=== PATIENT | female | born 1950 | race American Indian/Alaskan Native ===

== ENCOUNTER 2019-06-04 01:45 | Inpatient (IN) | payer MEDICARE, OTHER ==
[2019-06-04] VITALS (19 sets, daily range): BP systolic 114–228; BP diastolic 52–141
[~2019-06-04] VITALS: Ht 157.5 cm; Wt 97.9 kg
[2019-06-04] MEDS ORDERED: nitroGLYCERIN 1gm ointment UD TP ONE (02:00)
--- NOTE | 2019-06-04 02:14 | NUR ---
Patient resting comfortably and denies CP at this time. She is updated on POC.
[2019-06-04 02:15] LABS: BASOPHILS # (AUTO) 0.1 X10'3 (0-0.2); BASOPHILS % (AUTO) 1.1 % (0-1); EOSINOPHILS % (AUTO) 0.2 % (0-6); HEMATOCRIT 30.3 % (35.0-45.0); HEMOGLOBIN 10.3 g/dl (12.0-16.0); LYMPHOCYTES # (AUTO) 0.6 X10'3 (1.1-4.8); LYMPHOCYTES % (AUTO) 7.7 % (21-51); MEAN CORPUSCULAR HEMOGLOBIN 31.2 PG (27.0-31.0); MEAN CORPUSCULAR HGB CONC 34.1 g/dL (33.0-36.5); MEAN CORPUSCULAR VOLUME 91.4 FL (78-98); MEAN PLATELET VOLUME 8.2 FL (7.4-10.4); MONOCYTES # (AUTO) 0.1 X10'3 (0-0.9); MONOCYTES % (AUTO) 1.5 % (2-12); NEUTROPHILS # (AUTO) 6.4 X10'3 (1.8-7.7); NEUTROPHILS % (AUTO) 89.5 % (42-75); PLATELET COUNT 236 X10'3 (140-440); RED BLOOD COUNT 3.32 X10'6 (4.20-5.60); RED CELL DISTRIBUTION WIDTH 14.3 % (11.5-14.5); WHITE BLOOD COUNT 7.1 X10'3 (4.5-11.0)
[2019-06-04 02:16] LABS: PARTIAL THROMBOPLASTIN TIME 31 SECONDS (22-32)
[2019-06-04 02:18] LABS: ALANINE AMINOTRANSFERASE 19 U/L (12-78); ALBUMIN 3.3 G/DL (3.4-5.0); ALBUMIN/GLOBULIN RATIO 0.9 (1.1-1.5); ALKALINE PHOSPHATASE 90 IU/L (46-116); ANION GAP 7 (8-16); ASPARTATE AMINO TRANSFERASE 33 U/L (10-37); BILIRUBIN,TOTAL 0.2 MG/DL (0.1-1.0); BLOOD UREA NITROGEN 45 MG/DL (7-18); BUN/CREATININE RATIO 22.1 (6.6-38.0); CALCIUM 9.1 MG/DL (8.5-10.1); CHLORIDE 106 MMOL/L (99-107); CREATININE 2.04 MG/DL (0.40-0.90); GLUCOSE 314 MG/DL (70-104); POTASSIUM 4.9 MMOL/L (3.5-5.1); SODIUM 138 MMOL/L (135-145); TOTAL CARBON DIOXIDE 25.5 MMOL/L (24-32); TOTAL PROTEIN 6.9 G/DL (6.4-8.2); eGFR 24 ML/MIN
[2019-06-04] MEDS ORDERED: heparin 25,000 UNIT/250ml bag 250 ML IV SCH (02:24)
[2019-06-04] MEDS ORDERED: heparin 10,000 units/1 ML INJ IV PRN ×2 (02:25→03:45)
[2019-06-04] MEDS ORDERED: normal saline 1000ml 1,000 ML IV ONE (02:25)
[2019-06-04] MEDS ORDERED: heparin 10,000 units/1 ML INJ IV ONE ×2 (02:25→03:45)
[2019-06-04] MEDS ORDERED: aspirin 81mg tab.chew PO ONE (03:15)
[2019-06-04] MEDS ORDERED: magnesium Cl slow-release 64mg tablet PO PRN (03:15)
[2019-06-04] MEDS ORDERED: potassium Cl 20 mEq SR tablet PO PRN ×2 (03:15)
[2019-06-04] MEDS ORDERED: magnesium 2GM in 50ml NS 50 ML IV PRN (03:15)
[2019-06-04] MEDS ORDERED: HYDROcodone/acetaminophen 5mg/325mg tablet PO PRN (03:15)
[2019-06-04] MEDS ORDERED: ondansetron/PF 4mg/2ml inj IV PRN (03:15)
[2019-06-04] MEDS ORDERED: nitroGLYCERIN 0.4mg SUBLingual tab SL PRN (03:15)
[2019-06-04] MEDS ORDERED: mag hydrox/Alum hydrox/simeth 30ml oral suspension PO PRN (03:15)
[2019-06-04] MEDS ORDERED: magnesium hydroxide 30ml (MOM) UD suspension PO PRN ×2 (03:15→20:15)
[2019-06-04] MEDS ORDERED: magnesium 4gm in 100ml NS 100 ML IV PRN (03:15)
[2019-06-04] MEDS ORDERED: potassium CL 10mEq/100ml bag 100 ML IV PRN ×2 (03:15)
[2019-06-04] MEDS ORDERED: metoprolol tartrate 1mg/ml inj IV PRN (03:25)
[2019-06-04] MEDS ORDERED: glucagon, human recombinant 1mg kit SUBCUT PRN (03:45)
[2019-06-04] MEDS ORDERED: MESSAGE TO PHARMACY PO ONE (03:45)
[2019-06-04] MEDS ORDERED: dextrose 50%-water 50ml dispensing syringe IV PRN ×2 (03:45)
[2019-06-04] MEDS ORDERED: dextrose ORAL solution 15 GM/59 ML bottle PO PRN ×2 (03:45)
--- NOTE | 2019-06-04 03:45 | NUR ---
I have received report from HERNAN Lorenzo and had the opportunity to ask questions and assume patient care.
--- NOTE | 2019-06-04 03:50 | NUR ---
patient arrived [facility], [facility] via slide board. arrivedd with all known belongings
[2019-06-04 04:05] LABS: HEMOGLOBIN A1C 7.5 % (4.5-6.2)
--- NOTE | 2019-06-04 04:47 | NUR ---
PAGER ID: [phone] MESSAGE: [phone] Ирина Diamond. Please clarify Heparin drip orders. thank you. HERNAN Longoria ext [phone]
[2019-06-04] MEDS: heparin 25,000 UNIT/250ml bag 250 ML IV SCH (05:11)
--- NOTE | 2019-06-04 06:00 | NUR ---
Patient in room MED 307. I have received report from HERNAN Longoria and had the opportunity to ask questions and assume patient care.
--- NOTE | 2019-06-04 06:41 | NUR ---
PAGER ID: [phone] MESSAGE: [phone] Ирина Diamond. critical trop. 5.23 from 06.16. michelle garsia ext [phone]
--- NOTE | 2019-06-04 06:45 | NUR ---
Problems reprioritized. Patient report given, questions answered & plan of care reviewed with HERNAN Biswas.
[2019-06-04] MEDS ORDERED: enoxaparin 30mg/0.3ml syringe SQ SCH (08:00)
[2019-06-04] MEDS: K and/or MAG REPLACEMENT MC SCH ×2 (08:00→20:00)
[2019-06-04] MEDS ORDERED: metoprolol tartrate 12.5mg (1/2 tablet) PO SCH ×2 (08:00→20:00)
--- NOTE | 2019-06-04 08:28 | NUR ---
PAGED DR. BANEGAS CRITICAL TROPONIN: "PAGER ID: [phone] MESSAGE: RM [phone] PAM SHEETS. CRITICAL 6HR TROP 7.23, UP FROM 3HR 5.23. MICHEAL ACCE [phone]"
[2019-06-04] MEDS: aspirin 81mg tab.chew PO SCH (09:03)
--- NOTE | 2019-06-04 10:00 | NUR ---
SPOKE WITH DR. COLLINS ABOUT CRITICAL TROPONIN TROPONIN 7.23, ORDER FOR NS@100, AGGRASTAT DRIP, CONTINUE HEP GTT, NPO AFTER LUNCH DR. COLLINS SAYS HE WILL DO CATH AROUND 1900 TODAY BUT NEEDS TO TALK TO THE PATIENT FIRST HERNAN BURTON NOTIFIED WELL DR. BANEGAS DURING ROUNDS
[2019-06-04] MEDS ORDERED: hydrALAZINE 20mg/ml inj. IV PRN (10:25)
[2019-06-04] MEDS: insulin Lispro (HumaLOG) vial - multi-dose SQ SCH ×3 (10:28→17:18)
[2019-06-04] MEDS: normal saline 1000ml 1,000 ML IV SCH ×2 (10:42→20:47)
[2019-06-04] MEDS: acetaminophen 325mg tablet PO PRN (10:45)
[2019-06-04] MEDS: tirofiban 5mg in NS 100mL 100 ML IV SCH ×3 (10:45→22:23)
[2019-06-04] MEDS ORDERED: metoprolol tartrate 1mg/ml inj IV ONE ×2 (13:10→19:19)
[2019-06-04] MEDS ORDERED: CHLO25TA10 PO (13:21)
[2019-06-04] MEDS ORDERED: LEVO175T7 PO (13:21)
[2019-06-04] MEDS ORDERED: TIZA2TAB5 PO (13:21)
[2019-06-04] MEDS ORDERED: PIOG45TA65 PO (13:21)
[2019-06-04] MEDS ORDERED: CLOP75TA35 PO (13:21)
[2019-06-04] MEDS ORDERED: CARV3.122 PO (13:21)
[2019-06-04] MEDS ORDERED: ATOR40TA72 PO (13:21)
[2019-06-04] MEDS ORDERED: ACYC-202 PO (13:21)
[2019-06-04] MEDS ORDERED: NORT50CA PO (13:21)
[2019-06-04] MEDS ORDERED: TRAM50TA2 PO (13:21)
[2019-06-04] MEDS ORDERED: PRED20TA PO (13:21)
[2019-06-04] MEDS ORDERED: GABA800T11 PO (13:21)
[2019-06-04] MEDS ORDERED: GABA600T13 PO (13:21)
[2019-06-04] MEDS ORDERED: GABA-532 PO (13:21)
--- NOTE | 2019-06-04 15:25 | NUR ---
DM consult, A1c is 7.5, patient and family met at bedside and given written DM education handout with verbal review and referral to outpatient DM education class on saturday. Addendum: 06/04/19 at [address] Amended: Links added.
--- NOTE | 2019-06-04 17:00 | NUR ---
Student documentation: I have reviewed and agree with all interventions, med pass, and assessments performed and documented by SN Maxx.
--- NOTE | 2019-06-04 18:00 | NUR ---
Problems reprioritized. Patient report given, questions answered & plan of care reviewed with HERNAN Sargent.
[2019-06-04] MEDS ORDERED: LIDOcaine 1% (10mg/ml)w/preservative injection 20ml MDV ONE (18:26)
[2019-06-04] MEDS ORDERED: iohexol 350 MG/ML 50ML vial IV ONE ×2 (18:26→19:25)
[2019-06-04] MEDS ORDERED: iohexol 350MG/ML 100ml bottle IV ONE (18:27)
[2019-06-04] MEDS ORDERED: fentaNYL/PF 50MCG/1 ML 2ML syringe ONE (18:27)
[2019-06-04] MEDS ORDERED: midazolam 2 mg/2 ml injection ONE (18:27)
[2019-06-04] MEDS ORDERED: nitroGLYCERIN-Tridil 50MG/D5W 250 ML IV ONE (19:00)
--- NOTE | 2019-06-04 19:41 | NUR ---
Problems reprioritized. Patient report given to Merrick, questions answered & plan of care reviewed with .
--- NOTE | 2019-06-04 19:42 | NUR ---
Patient left to labor relations consultant. Got the message from charge nurse, Romi that the patient is going to ICU room 2039. Gave report to Merrick. Patient was alert, oriented x4 when she left the ACCE unit.
[2019-06-04] MEDS ORDERED: metoprolol succinate 25mg (24-HOUR) SR. Tablet PO SCH (20:07)
[2019-06-04] MEDS ORDERED: OXAZEpam 15mg capsule PO PRN (20:15)
[2019-06-04] MEDS ORDERED: morphine 10mg/ml inj. IV PRN (20:15)
[2019-06-04] MEDS ORDERED: HYDROcodone/acetaminophen 10/325mg tab PO PRN ×2 (20:15)
[2019-06-04] MEDS ORDERED: proCHLORperazine 10 MG/2 ml inj IV PRN (20:15)
[2019-06-04] MEDS ORDERED: acetaminophen 325mg tablet PO PRN (20:15)
[2019-06-04] MEDS ORDERED: cyclobenzaprine 10mg tablet PO PRN (20:15)
[2019-06-04] MEDS: hydrALAZINE 25 MG tablet PO SCH (20:42)
[2019-06-04] MEDS: metoprolol succinate 25mg (24-HOUR) SR. Tablet PO SCH (20:42)
[2019-06-04] MEDS: insulin glargine (Lantus) pen - multi-dose SQ SCH (21:00)
[2019-06-04 22:04] LABS: CLARITY,URINE CLOUDY (Clear); COLOR,URINE STRAW (Yellow); GLUCOSE, URINE NEGATIVE (Neg); KETONES,URINE NEGATIVE (Neg); LEUKOCYTE ESTERASE ,URINE NEGATIVE (Neg); NITRITES, URINE NEGATIVE (Neg); OCCULT BLOOD,URINE LARGE (Neg); PROTEIN,URINE 100 mg/dl (Neg); UROBILINOGEN,URINE 0.2 E.U/dL (0.2-1.0)
[2019-06-04 22:21] LABS: UA COLLECTION TYPE FOLEY CATH
[2019-06-04 22:23] LABS: WBC,URINE 0-4 /HPF (0-4)
[2019-06-04 22:24] LABS: BACTERIA,URINE 3+ /HPF (Neg); RBC,URINE 50-100 /HPF (0-2); SQUAMOUS EPITHELIAL CELL,UR NONE SEEN /LPF (FEW)
[2019-06-04] MEDS: amLODIPine 5mg tablet PO SCH (22:40)
[2019-06-04] MEDS: sodium chloride 0.45% 1,000 ML IV SCH (22:50)
[2019-06-04 23:55] LABS: TOTAL PROTEIN,URINE RANDOM 124.1 MG/DL
[2019-06-05] VITALS (25 sets, daily range): BP systolic 102–171; BP diastolic 34–75
[2019-06-05 00:41] LABS: BASOPHILS % (AUTO) 0.4 % (0-1); EOSINOPHILS % (AUTO) 0.1 % (0-6); HEMATOCRIT 27.3 % (35.0-45.0); HEMOGLOBIN 9.3 g/dl (12.0-16.0); LYMPHOCYTES # (AUTO) 0.8 X10'3 (1.1-4.8); LYMPHOCYTES % (AUTO) 9.4 % (21-51); MEAN CORPUSCULAR HEMOGLOBIN 31.5 PG (27.0-31.0); MEAN CORPUSCULAR HGB CONC 34.3 g/dL (33.0-36.5); MEAN CORPUSCULAR VOLUME 91.7 FL (78-98); MEAN PLATELET VOLUME 8.5 FL (7.4-10.4); MONOCYTES # (AUTO) 0.4 X10'3 (0-0.9); MONOCYTES % (AUTO) 4.7 % (2-12); NEUTROPHILS # (AUTO) 7.5 X10'3 (1.8-7.7); NEUTROPHILS % (AUTO) 85.4 % (42-75); PLATELET COUNT 222 X10'3 (140-440); RED BLOOD COUNT 2.97 X10'6 (4.20-5.60); RED CELL DISTRIBUTION WIDTH 14.7 % (11.5-14.5); WHITE BLOOD COUNT 8.8 X10'3 (4.5-11.0)
[2019-06-05 01:03] LABS: ALANINE AMINOTRANSFERASE 22 U/L (12-78); ALBUMIN 2.8 G/DL (3.4-5.0); ALBUMIN/GLOBULIN RATIO 0.9 (1.1-1.5); ALKALINE PHOSPHATASE 72 IU/L (46-116); ANION GAP 8 (8-16); ASPARTATE AMINO TRANSFERASE 35 U/L (10-37); BILIRUBIN,TOTAL 0.2 MG/DL (0.1-1.0); BLOOD UREA NITROGEN 44 MG/DL (7-18); BUN/CREATININE RATIO 27.3 (6.6-38.0); CALCIUM 8.2 MG/DL (8.5-10.1); CHLORIDE 108 MMOL/L (99-107); CREATININE 1.61 MG/DL (0.40-0.90); GLUCOSE 217 MG/DL (70-104); MAGNESIUM 1.6 MG/DL (1.5-2.4); PHOSPHORUS 3.4 MG/DL (2.3-4.5); POTASSIUM 4.4 MMOL/L (3.5-5.1); SODIUM 139 MMOL/L (135-145); TOTAL CARBON DIOXIDE 22.6 MMOL/L (24-32); TOTAL PROTEIN 5.9 G/DL (6.4-8.2); eGFR 32 ML/MIN
[2019-06-05] MEDS: heparin 25,000 UNIT/250ml bag 250 ML IV SCH (03:45)
[2019-06-05] MEDS: tirofiban 5mg in NS 100mL 100 ML IV SCH ×2 (06:03→12:30)
--- NOTE | 2019-06-05 06:23 | NUR ---
Problems reprioritized. Patient report given, questions answered & plan of care reviewed with Lalito BECERRA.
--- NOTE | 2019-06-05 06:30 | NUR ---
Patient in room ICU 2039. I have received report from HERNAN DEL CID and had the opportunity to ask questions and assume patient care.
[2019-06-05] MEDS ORDERED: magnesium 2GM in 50ml NS 50 ML IV PRN (07:55)
[2019-06-05] MEDS ORDERED: dextrose 50%-water 50ml dispensing syringe IV PRN (07:55)
[2019-06-05] MEDS ORDERED: potassium Cl 20mEq/100mL bag 100 ML IV PRN (07:55)
[2019-06-05] MEDS ORDERED: magnesium 4gm in 100ml NS 100 ML IV PRN (07:55)
[2019-06-05] MEDS ORDERED: potassium Cl 20 mEq SR tablet PO PRN (07:55)
--- NOTE | 2019-06-05 08:00 | NUR ---
PATIENT BEING CONSENTED FOR OR BY DR. WOODARD.
[2019-06-05] MEDS: K and/or MAG REPLACEMENT MC SCH ×2 (08:29→20:00)
[2019-06-05] MEDS: hydrALAZINE 25 MG tablet PO SCH ×3 (08:34→20:51)
[2019-06-05] MEDS: atorvastatin 20mg tablet PO SCH (08:34)
[2019-06-05] MEDS: docusate sod 100mg capsule PO SCH ×2 (08:34→20:51)
[2019-06-05] MEDS: pantoprazole 40mg Tablet.DR PO SCH (08:34)
[2019-06-05] MEDS: metoprolol succinate 25mg (24-HOUR) SR. Tablet PO SCH (08:34)
[2019-06-05] MEDS: amLODIPine 5mg tablet PO SCH ×2 (08:34→20:51)
[2019-06-05] MEDS: aspirin 81mg tab.chew PO SCH (08:35)
[2019-06-05 08:43] LABS: CLARITY,URINE CLOUDY (Clear); COLOR,URINE RED (Yellow); GLUCOSE, URINE NEGATIVE (Neg); KETONES,URINE NEGATIVE (Neg); LEUKOCYTE ESTERASE ,URINE MODERATE (Neg); NITRITES, URINE NEGATIVE (Neg); OCCULT BLOOD,URINE LARGE (Neg); PROTEIN,URINE >=300 mg/dl (Neg); UROBILINOGEN,URINE 0.2 E.U/dL (0.2-1.0)
[2019-06-05] MEDS ORDERED: MESSAGE TO NURSING PO ONE ×5 (08:45→10:00)
[2019-06-05 08:48] LABS: UA COLLECTION TYPE FOLEY CATH
[2019-06-05 08:52] LABS: BACTERIA,URINE 4+ /HPF (Neg); MUCUS STRANDS NONE SEEN /LPF (Neg); RBC,URINE TNTC /HPF (0-2); RENAL CELLS, URINE FEW /HPF; SQUAMOUS EPITHELIAL CELL,UR FEW /LPF (FEW); WBC CLUMPS,URINE MANY /HPF (NEGATIVE); WBC,URINE TNTC /HPF (0-4)
[2019-06-05 08:54] LABS: ALANINE AMINOTRANSFERASE 19 U/L (12-78); ALBUMIN 2.8 G/DL (3.4-5.0); ALKALINE PHOSPHATASE 67 IU/L (46-116); ANION GAP 9 (8-16); ASPARTATE AMINO TRANSFERASE 23 U/L (10-37); BILIRUBIN,TOTAL 0.2 MG/DL (0.1-1.0); BLOOD UREA NITROGEN 46 MG/DL (7-18); BUN/CREATININE RATIO 28.2 (6.6-38.0); CALCIUM 7.9 MG/DL (8.5-10.1); CHLORIDE 108 MMOL/L (99-107); CHOL/HDL RATIO 6.5 (0.00-4.99); CHOLESTEROL 215 MG/DL (0-200); CREATININE 1.63 MG/DL (0.40-0.90); GLUCOSE 164 MG/DL (70-104); HDL CHOLESTEROL 33 MG/DL (35-60); LDL CHOLESTEROL 161 MG/DL (50-100); POTASSIUM 4.2 MMOL/L (3.5-5.1); SODIUM 140 MMOL/L (135-145); TOTAL CARBON DIOXIDE 22.7 MMOL/L (24-32); TOTAL PROTEIN 5.7 G/DL (6.4-8.2); TRIGLYCERIDES 157 MG/DL (20-135); eGFR 31 ML/MIN
[2019-06-05] MEDS: insulin Lispro (HumaLOG) vial - multi-dose SQ SCH (09:25)
[2019-06-05 10:06] LABS: PARTIAL THROMBOPLASTIN TIME 54 SECONDS (22-32)
[2019-06-05] MEDS ORDERED: ringers solution, lacted 1,000 ML IV ONE (10:50)
[2019-06-05] MEDS ORDERED: TRAM50TA2 PO (12:43)
[2019-06-05 17:01] LABS: ABG BASE EXCESS -3.1 mmol/L (-2.0-3.0); ABG HCO3 21.2 mmol/L (22.0-26.0); ABG OXYGEN SATURATION 95.2 % (95-98); ABG PCO2 (T) 35.4 mmHg (35.0-45.0); ABG PH (T) 7.396 (7.350-7.450); ABG PO2 (T) 79.7 mmHg (83-108); FCOHb 0.3 % (0.5-1.5); FMetHb 0.3 % (0.3-1.12); FO2Hb 94.6 % (94-100); TOTAL HEMOGLOBIN 9.8 G/dl (12.0-16.0)
--- NOTE | 2019-06-05 18:30 | NUR ---
Patient in room ICU 2039. I have received report from Lalito BECERRA and had the opportunity to ask questions and assume patient care. Pt scheduled for CABG in AM. Pt is eating dinner at this time. Rhythm is sinus without ectopy. Heparin & Aggrastat drips infusing at this time, LR infusing at 50ml/hr. Right femoral sheath with bloody dressing noted, area outlined. No hematoma. Right femoral sheath is transduced/zeroed. Arterial line with good wave form. Pedal pulses with Doppler only. Capillary refill is brisk to all nail beds. Pedal edema is dependent. No distress at change of shift. Pt is on room air saturating 98%.
[2019-06-05] MEDS: sodium chloride 0.45% 1,000 ML IV SCH (18:40)
--- NOTE | 2019-06-05 18:40 | NUR ---
Aggrastat now off.
--- NOTE | 2019-06-05 18:58 | NUR ---
Dr. Yuen notified about "no results" on plavix test; received orders to stop aggr[place] [address]/05.
[2019-06-05] MEDS: metoprolol tartrate 12.5mg (1/2 tablet) PO SCH (20:53)
[2019-06-05] MEDS: insulin glargine (Lantus) pen - multi-dose SQ SCH (21:00)
--- NOTE | 2019-06-05 22:00 | NUR ---
Post OP teaching rendered. Pt informed of ETT post operative, inability to speak, oral care, suctioning, communication hand gestures, assessments, chest tubes, chest incision/ pillow to brace incision with repositioning/coughing, pain medications/sedation/ wrist restraints, use of incentive spirometer Q1HR while awake & flutter valve post extubation. Pt. utilized incentive spirometer unable to go beyond 1250ml x 3. Does well with flutter valve. Reinforce all teaching. Pt is receptive to information given & expressed verbal understanding.
[2019-06-05] MEDS: mupirocin 2% nasal ointment 1gm UD NS SCH (23:40)
[2019-06-06] VITALS (25 sets, daily range): BP systolic 104–170; BP diastolic 49–67
--- NOTE | 2019-06-06 | NUR ---
CHG bath rendered. Linen & gown changed.
[2019-06-06] MEDS: acetaminophen 325mg tablet PO PRN (01:22)
[2019-06-06 03:11] LABS: BASOPHILS # (AUTO) 0.1 X10'3 (0-0.2); EOSINOPHILS # (AUTO) 0.1 X10'3 (0-0.9); EOSINOPHILS % (AUTO) 1.5 % (0-6); HEMATOCRIT 27.3 % (35.0-45.0); HEMOGLOBIN 9.2 g/dl (12.0-16.0); LYMPHOCYTES # (AUTO) 3.1 X10'3 (1.1-4.8); LYMPHOCYTES % (AUTO) 40.5 % (21-51); MEAN CORPUSCULAR HGB CONC 33.8 g/dL (33.0-36.5); MEAN CORPUSCULAR VOLUME 91.8 FL (78-98); MEAN PLATELET VOLUME 8.5 FL (7.4-10.4); MONOCYTES # (AUTO) 0.5 X10'3 (0-0.9); MONOCYTES % (AUTO) 6.4 % (2-12); NEUTROPHILS # (AUTO) 3.9 X10'3 (1.8-7.7); NEUTROPHILS % (AUTO) 50.6 % (42-75); PLATELET COUNT 217 X10'3 (140-440); RED BLOOD COUNT 2.97 X10'6 (4.20-5.60); RED CELL DISTRIBUTION WIDTH 14.8 % (11.5-14.5); WHITE BLOOD COUNT 7.7 X10'3 (4.5-11.0)
[2019-06-06 03:29] LABS: ALANINE AMINOTRANSFERASE 16 U/L (12-78); ALBUMIN 2.8 G/DL (3.4-5.0); ALBUMIN/GLOBULIN RATIO 0.9 (1.1-1.5); ALKALINE PHOSPHATASE 64 IU/L (46-116); ANION GAP 9 (8-16); ASPARTATE AMINO TRANSFERASE 19 U/L (10-37); BILIRUBIN,TOTAL 0.3 MG/DL (0.1-1.0); BLOOD UREA NITROGEN 47 MG/DL (7-18); BUN/CREATININE RATIO 22.8 (6.6-38.0); CALCIUM 8.4 MG/DL (8.5-10.1); CHLORIDE 108 MMOL/L (99-107); CREATININE 2.06 MG/DL (0.40-0.90); GLUCOSE 107 MG/DL (70-104); MAGNESIUM 1.7 MG/DL (1.5-2.4); PHOSPHORUS 3.9 MG/DL (2.3-4.5); POTASSIUM 4.1 MMOL/L (3.5-5.1); SODIUM 140 MMOL/L (135-145); TOTAL CARBON DIOXIDE 23.1 MMOL/L (24-32); TOTAL PROTEIN 5.9 G/DL (6.4-8.2); eGFR 24 ML/MIN
--- NOTE | 2019-06-06 04:15 | NUR ---
2nd bath rendered at this time.
[2019-06-06] MEDS: heparin 25,000 UNIT/250ml bag 250 ML IV SCH (05:44)
[2019-06-06] MEDS ORDERED: ROPIVAcaine 0.5% (5mg/ml) 30ml vial ONE (05:46)
[2019-06-06] MEDS ORDERED: vancomycin/NS 1 GM ADD-VANTAGE 250 ML IV ONE (06:00)
[2019-06-06] MEDS ORDERED: MALTODEXTRIN/FRUCTOSE 0.68 KCAL/ML LIQUID 296ML BOTTLE PO ONE (06:00)
[2019-06-06] MEDS ORDERED: gabapentin 400mg capsule PO ONE (06:00)
[2019-06-06] MEDS ORDERED: LORazepam 2 mg/ml vial IV ONE (06:00)
[2019-06-06] MEDS ORDERED: famotidine/PF 10 mg/ml inj IV ONE (06:00)
[2019-06-06] MEDS ORDERED: cefazolin/dext.iso 2gm/50ml 50 ML IV ONE (06:00)
[2019-06-06] MEDS: Insulin Reg/NS 100units/100mL 100 ML IV SCH (06:00)
--- NOTE | 2019-06-06 06:45 | NUR ---
Problems reprioritized. Patient report given, questions answered & plan of care reviewed.
--- NOTE | 2019-06-06 07:10 | NUR ---
Patient off to surgery with CVOR team
[2019-06-06] MEDS ORDERED: SUFENTANIL CITRATE 50 MCG/ML 2ml ampule IV ONE (07:11)
[2019-06-06] MEDS ORDERED: MIDAZolam 1mg/ml 10ml vial ONE (07:11)
[2019-06-06] MEDS ORDERED: protamine sulf. 10mg/ml inj. IV ONE (07:12)
[2019-06-06] MEDS ORDERED: phenylephrine 10mg/ml inj. ONE ×2 (07:12→08:23)
[2019-06-06] MEDS ORDERED: INSULIN Regular In NS 100 units/100 ML PLAST..BAG IV ONE (07:12)
[2019-06-06] MEDS ORDERED: nitroGLYCERIN in D5W 50mg/250ml (Tridil) infusion IV ONE (07:12)
[2019-06-06] MEDS ORDERED: DOPamine/D5W 400mg/250ml bag IV ONE (07:12)
[2019-06-06] MEDS ORDERED: isoflurane 100ml inhalation liquid IH ONE (07:12)
[2019-06-06] MEDS ORDERED: rocuronium 10mg/ml inj IV ONE ×3 (07:12→08:23)
[2019-06-06] MEDS ORDERED: NORepinephrine 8 MG in NS 250 ML BAG (32 mcg/ml) IV ONE (07:12)
[2019-06-06] MEDS ORDERED: aminocaproic acid 250 MG/1 ML inj. ONE (07:12)
[2019-06-06] MEDS ORDERED: cefazolin 2gm/NS 100ml IVPB IV ONE (07:12)
[2019-06-06] MEDS ORDERED: 0.9 % SODIUM CHLORIDE 10 ML VIAL ONE ×3 (07:15→08:23)
[2019-06-06] MEDS: aspirin 81mg tab.chew PO SCH (07:24)
[2019-06-06] MEDS: hydrALAZINE 25 MG tablet PO SCH (07:24)
[2019-06-06] MEDS: pantoprazole 40mg Tablet.DR PO SCH (07:24)
[2019-06-06] MEDS: mupirocin 2% nasal ointment 1gm UD NS SCH ×2 (07:24→20:17)
[2019-06-06] MEDS: metoprolol tartrate 12.5mg (1/2 tablet) PO SCH (07:25)
[2019-06-06] MEDS: amLODIPine 5mg tablet PO SCH (07:25)
[2019-06-06] MEDS: docusate sod 100mg capsule PO SCH (07:25)
[2019-06-06] MEDS: atorvastatin 20mg tablet PO SCH (07:25)
[2019-06-06] MEDS: K and/or MAG REPLACEMENT MC SCH (07:28)
[2019-06-06 08:11] LABS: ABG BASE EXCESS -8.7 mmol/L (-2.0-3.0); ABG HCO3 15.4 mmol/L (22.0-26.0); ABG OXYGEN SATURATION 93.2 % (95-98); ABG PCO2 26.7 mmHg (35.0-45.0); ABG PH 7.378 (7.350-7.450); ABG PO2 73.9 mmHg (60.0-100.0); CL (ABG) 106 mmol/L (99-107); FCOHb 0.2 % (0.5-1.5); FMetHb 0.3 % (0.3-1.12); FO2Hb 92.7 % (94-100); GLUCOSE (ABG) 138 mg/dl (70-104); IONIZED CA (ABG) 1.13 mmol/L (1.03-1.32); K (ABG) 3.7 mmol/L (3.3-5.1); NA (ABG) 135 mmol/L (135-145); TOTAL HEMOGLOBIN 8.8 G/dl (12.0-16.0)
[2019-06-06] MEDS ORDERED: heparin 10,000 units/1 ML INJ IR ONE (08:20)
[2019-06-06] MEDS ORDERED: ePHEDrine 50MG/ML INJ. ONE (08:23)
[2019-06-06] MEDS ORDERED: LIDOcaine 2% (20mg/ml) 5ml vial ONE (08:23)
[2019-06-06] MEDS ORDERED: propofol inj 20 ML IV ONE (08:23)
[2019-06-06] MEDS ORDERED: papaverine 30 mg/ml 2ml inj. IA ONE (08:24)
[2019-06-06 08:45] LABS: ABG BASE EXCESS -5.8 mmol/L (-2.0-3.0); ABG HCO3 18.8 mmol/L (22.0-26.0); ABG OXYGEN SATURATION 99.9 % (95-98); ABG PCO2 33.4 mmHg (35.0-45.0); ABG PH 7.368 (7.350-7.450); ABG PO2 312.2 mmHg (60.0-100.0); CL (ABG) 106 mmol/L (99-107); FCOHb 0.2 % (0.5-1.5); FMetHb 0.3 % (0.3-1.12); FO2Hb 99.4 % (94-100); GLUCOSE (ABG) 157 mg/dl (70-104); IONIZED CA (ABG) 1.15 mmol/L (1.03-1.32); K (ABG) 4.1 mmol/L (3.3-5.1); NA (ABG) 137 mmol/L (135-145); TOTAL HEMOGLOBIN 9.3 G/dl (12.0-16.0)
[2019-06-06] MEDS ORDERED: midazolam 2 mg/2 ml injection IV ONE (09:10)
[2019-06-06] MEDS ORDERED: fentaNYL/PF 50MCG/1 ML 2ML syringe IV PRN (09:10)
[2019-06-06] MEDS ORDERED: midazolam 100mg in NS 100ml 100 ML IV PRN (09:10)
[2019-06-06] MEDS ORDERED: FENTANYL-0.9 % NACL/PF 100 ML IV PRN (09:10)
[2019-06-06 09:21] LABS: ABG BASE EXCESS -1.1 mmol/L (-2.0-3.0); ABG HCO3 22.9 mmol/L (22.0-26.0); ABG OXYGEN SATURATION 99.8 % (95-98); ABG PCO2 34.5 mmHg (35.0-45.0); ABG PH 7.439 (7.350-7.450); ABG PO2 309.1 mmHg (60.0-100.0); CL (ABG) 106 mmol/L (99-107); FCOHb 0.8 % (0.5-1.5); FMetHb 0.3 % (0.3-1.12); FO2Hb 98.7 % (94-100); GLUCOSE (ABG) 159 mg/dl (70-104); IONIZED CA (ABG) 1.04 mmol/L (1.03-1.32); K (ABG) 5.1 mmol/L (3.3-5.1); NA (ABG) 138 mmol/L (135-145); TOTAL HEMOGLOBIN 7.8 G/dl (12.0-16.0)
[2019-06-06 09:40] LABS: ABG BASE EXCESS VENOUS 1.1 mmol/L; ABG HCO3 VENOUS 25.9 mmol/L; ABG PO2 VENOUS 57.4 mmHg; CL (ABG) 106 mmol/L (99-107); FCOHb VENOUS 0.1 %; FHHb VENOUS 9.9 %; FMetHb VENOUS 0.6 %; FO2Hb VENOUS 89.4 %; GLUCOSE (ABG) 157 mg/dl (70-104); IONIZED CA (ABG) 1.01 mmol/L (1.03-1.32); K (ABG) 4.9 mmol/L (3.3-5.1); NA (ABG) 139 mmol/L (135-145); TOTAL HEMOGLOBIN 8.6 G/dl (12.0-16.0)
[2019-06-06 10:00] LABS: ABG BASE EXCESS -1.7 mmol/L (-2.0-3.0); ABG HCO3 22.3 mmol/L (22.0-26.0); ABG OXYGEN SATURATION 98.9 % (95-98); ABG PCO2 33.9 mmHg (35.0-45.0); ABG PH 7.435 (7.350-7.450); ABG PO2 281.2 mmHg (60.0-100.0); CL (ABG) 102 mmol/L (99-107); FCOHb 0.2 % (0.5-1.5); FMetHb 0.7 % (0.3-1.12); GLUCOSE (ABG) 139 mg/dl (70-104); K (ABG) 4.9 mmol/L (3.3-5.1); NA (ABG) 130 mmol/L (135-145); TOTAL HEMOGLOBIN 7.9 G/dl (12.0-16.0)
[2019-06-06 10:25] LABS: ABG BASE EXCESS -0.7 mmol/L (-2.0-3.0); ABG HCO3 22.5 mmol/L (22.0-26.0); ABG OXYGEN SATURATION 90.5 % (95-98); ABG PCO2 31.2 mmHg (35.0-45.0); ABG PH 7.476 (7.350-7.450); CL (ABG) 108 mmol/L (99-107); FMetHb 0.5 % (0.3-1.12); GLUCOSE (ABG) 136 mg/dl (70-104); IONIZED CA (ABG) 1.15 mmol/L (1.03-1.32); K (ABG) 4.8 mmol/L (3.3-5.1); NA (ABG) 137 mmol/L (135-145); TOTAL HEMOGLOBIN 8.6 G/dl (12.0-16.0)
[2019-06-06 10:46] LABS: ABG BASE EXCESS -2.3 mmol/L (-2.0-3.0); ABG HCO3 20.4 mmol/L (22.0-26.0); ABG OXYGEN SATURATION 97.3 % (95-98); ABG PCO2 28.1 mmHg (35.0-45.0); ABG PH 7.478 (7.350-7.450); CL (ABG) 108 mmol/L (99-107); FCOHb 0.3 % (0.5-1.5); FMetHb 0.4 % (0.3-1.12); FO2Hb 96.6 % (94-100); GLUCOSE (ABG) 124 mg/dl (70-104); IONIZED CA (ABG) 1.16 mmol/L (1.03-1.32); K (ABG) 4.4 mmol/L (3.3-5.1); NA (ABG) 137 mmol/L (135-145); TOTAL HEMOGLOBIN 10.2 G/dl (12.0-16.0)
[2019-06-06 10:46] LABS: ABG BASE EXCESS VENOUS -0.2 mmol/L; ABG HCO3 VENOUS 24.2 mmol/L; ABG PCO2 VENOUS 38.3 mmHg; ABG PO2 VENOUS 28.1 mmHg; CL (ABG) 107 mmol/L (99-107); FCOHb VENOUS 0.9 %; FHHb VENOUS 41.2 %; FMetHb VENOUS 0.3 %; FO2Hb VENOUS 57.6 %; GLUCOSE (ABG) 131 mg/dl (70-104); IONIZED CA (ABG) 1.18 mmol/L (1.03-1.32); K (ABG) 4.5 mmol/L (3.3-5.1); NA (ABG) 137 mmol/L (135-145); TOTAL HEMOGLOBIN 10.4 G/dl (12.0-16.0)
[2019-06-06] MEDS ORDERED: niCARDipine-NS 40mg/200ml IVPB 200 ML IV PRN (10:58)
[2019-06-06] MEDS ORDERED: Insulin Reg/NS 100units/100mL 100 ML IV SCH (10:58)
[2019-06-06] MEDS ORDERED: nitroGLYCERIN-Tridil 50MG/D5W 250 ML IV PRN (10:58)
[2019-06-06] MEDS ORDERED: DOPamine 400mg/D5W 250ml 250 ML IV PRN (10:58)
[2019-06-06] MEDS ORDERED: NORepinephrine 8mg/ 250ml NS 250 ML IV PRN (10:58)
[2019-06-06] MEDS ORDERED: HYDROcodone/acetaminophen 10/325mg tab PO PRN (11:00)
[2019-06-06] MEDS ORDERED: acetaminophen 325mg tablet PO PRN ×2 (11:00)
[2019-06-06] MEDS ORDERED: ondansetron/PF 4mg/2ml inj IV PRN (11:00)
[2019-06-06] MEDS ORDERED: morphine 4 MG/ML inj SYRINge IV PRN (11:00)
[2019-06-06] MEDS ORDERED: mineral oil 133ml enema RC PRN (11:00)
[2019-06-06] MEDS ORDERED: magnesium 2GM in 50ml NS 50 ML IV PRN (11:00)
[2019-06-06] MEDS ORDERED: potassium Cl 20 mEq SR tablet PO PRN (11:00)
[2019-06-06] MEDS ORDERED: metoclopramide 5 mg/ml inj IV PRN (11:00)
[2019-06-06] MEDS ORDERED: magnesium 4gm in 100ml NS 100 ML IV PRN (11:00)
[2019-06-06] MEDS ORDERED: bisacodyl 10mg suppository rectal RC PRN (11:00)
[2019-06-06] MEDS ORDERED: magnesium hydroxide 30ml (MOM) UD suspension PO PRN (11:00)
[2019-06-06] MEDS ORDERED: Neutra Phos packet PO PRN (11:00)
[2019-06-06] MEDS ORDERED: dextrose 50%-water 50ml dispensing syringe IV PRN (11:00)
[2019-06-06] MEDS ORDERED: insulin glargine (Lantus) pen - multi-dose SQ PRN (11:00)
[2019-06-06] MEDS ORDERED: magnesium citrate 296ml oral solution PO PRN (11:00)
[2019-06-06] MEDS ORDERED: sodium phosphate inj. 15 MMOL in dextrose 5%-water 250 ML IV PRN (11:00)
[2019-06-06] MEDS ORDERED: sodium phosphate inj. 30 MMOL in dextrose 5%-water 250 ML IV PRN (11:00)
[2019-06-06] MEDS ORDERED: normal saline 250ml IV soln 250 ML IV PRN (11:00)
[2019-06-06] MEDS ORDERED: pantoprazole 40 MG vial IV ONE (11:00)
[2019-06-06] MEDS ORDERED: DOBUTamine-DoBUTrex 500mg/D5W 250 ML IV ONE ×2 (11:12)
[2019-06-06 11:20] LABS: ABG BASE EXCESS -2.1 mmol/L (-2.0-3.0); ABG OXYGEN SATURATION 98.9 % (95-98); ABG PCO2 (T) 29.7 mmHg (35.0-45.0); ABG PH (T) 7.465 (7.350-7.450); ABG PO2 (T) 228.3 mmHg (83-108); FCOHb 0.3 % (0.5-1.5); FMetHb 0.2 % (0.3-1.12); FO2Hb 98.4 % (94-100); PATIENT TEMPERATURE 36.4; PEEP 5 cm H2O; RESPIRATORY RATE 14 b/min; TIDAL VOLUME 500 mL
[2019-06-06 11:24] LABS: BASOPHILS # (AUTO) 0.1 X10'3 (0-0.2); BASOPHILS % (AUTO) 0.7 % (0-1); EOSINOPHILS # (AUTO) 0.1 X10'3 (0-0.9); EOSINOPHILS % (AUTO) 0.6 % (0-6); HEMATOCRIT 30.9 % (35.0-45.0); HEMOGLOBIN 10.7 g/dl (12.0-16.0); LYMPHOCYTES # (AUTO) 0.8 X10'3 (1.1-4.8); LYMPHOCYTES % (AUTO) 9.5 % (21-51); MEAN CORPUSCULAR HGB CONC 34.5 g/dL (33.0-36.5); MEAN PLATELET VOLUME 8.3 FL (7.4-10.4); MONOCYTES # (AUTO) 0.2 X10'3 (0-0.9); MONOCYTES % (AUTO) 2.2 % (2-12); NEUTROPHILS # (AUTO) 7.4 X10'3 (1.8-7.7); PLATELET COUNT 126 X10'3 (140-440); RED BLOOD COUNT 3.44 X10'6 (4.20-5.60); RED CELL DISTRIBUTION WIDTH 14.6 % (11.5-14.5); WHITE BLOOD COUNT 8.5 X10'3 (4.5-11.0)
--- NOTE | 2019-06-06 11:27 | NUR ---
Nutrition consult: Pt s/p CABG today. Pt wound benefit from post cardiac surgery nutrition therapy education once stable. Will continue to follow. Addendum: 06/06/19 at [address] Amended: Links added.
[2019-06-06 11:41] LABS: PARTIAL THROMBOPLASTIN TIME 23 SECONDS (22-32)
[2019-06-06 11:42] LABS: ALANINE AMINOTRANSFERASE 14 U/L (12-78); ALBUMIN 2.4 G/DL (3.4-5.0); ALKALINE PHOSPHATASE 48 IU/L (46-116); ANION GAP 6 (8-16); ASPARTATE AMINO TRANSFERASE 26 U/L (10-37); BILIRUBIN,TOTAL 0.3 MG/DL (0.1-1.0); BLOOD UREA NITROGEN 44 MG/DL (7-18); BUN/CREATININE RATIO 21.9 (6.6-38.0); CALCIUM 8.2 MG/DL (8.5-10.1); CHLORIDE 111 MMOL/L (99-107); CREATININE 2.01 MG/DL (0.40-0.90); GLUCOSE 130 MG/DL (70-104); MAGNESIUM 3.2 MG/DL (1.5-2.4); PHOSPHORUS 2.6 MG/DL (2.3-4.5); POTASSIUM 4.4 MMOL/L (3.5-5.1); SODIUM 143 MMOL/L (135-145); TOTAL CARBON DIOXIDE 26.4 MMOL/L (24-32); TOTAL PROTEIN 4.7 G/DL (6.4-8.2); eGFR 25 ML/MIN
[2019-06-06] MEDS ORDERED: desmopressin inj. 30 MCG in normal saline 100ml IV soln 100 ML IV ONE (11:55)
[2019-06-06] MEDS: albumin (Human) 5% 250ml 250 ML IV PRN ×3 (11:58→17:14)
[2019-06-06] MEDS: gabapentin 300mg capsule PO SCH ×2 (12:37→20:17)
[2019-06-06] MEDS: potassium Cl 20mEq/100mL bag 100 ML IV PRN ×2 (12:40→14:43)
[2019-06-06] MEDS: sodium chloride 0.45% 1,000 ML IV SCH (12:59)
--- NOTE | 2019-06-06 16:40 | NUR ---
Received to room 2012, accompanied by MDs and surgical crew. Placed on ventilator, to cardiac catheterization technologist, arterial line and PA line pressure monitored. Chest tubes to suction at 20 cm. Cordero cath to gravity drainage. Dressings are dry and intact. See assessment record. All vasoactive drugs are infusing via central line. Addendum: 06/06/19 at 1641 by William Bailey RN Patient arrived to room at 1100
[2019-06-06] MEDS: ceFAZolin 1GM/D5W- ADD-VANTAGE 50 ML IV SCH (17:00)
[2019-06-06 17:15] LABS: BASOPHILS % (AUTO) 0.3 % (0-1); EOSINOPHILS % (AUTO) 0 % (0-6); HEMATOCRIT 27.7 % (35.0-45.0); HEMOGLOBIN 9.6 g/dl (12.0-16.0); LYMPHOCYTES # (AUTO) 0.3 X10'3 (1.1-4.8); MEAN CORPUSCULAR HGB CONC 34.5 g/dL (33.0-36.5); MEAN CORPUSCULAR VOLUME 89.9 FL (78-98); MEAN PLATELET VOLUME 8.4 FL (7.4-10.4); MONOCYTES # (AUTO) 0.4 X10'3 (0-0.9); MONOCYTES % (AUTO) 4.9 % (2-12); NEUTROPHILS % (AUTO) 91.8 % (42-75); PLATELET COUNT 119 X10'3 (140-440); RED BLOOD COUNT 3.08 X10'6 (4.20-5.60); RED CELL DISTRIBUTION WIDTH 15.4 % (11.5-14.5); WHITE BLOOD COUNT 8.7 X10'3 (4.5-11.0)
[2019-06-06 17:26] LABS: ALBUMIN 2.8 G/DL (3.4-5.0); ANION GAP 10 (8-16); BLOOD UREA NITROGEN 45 MG/DL (7-18); BUN/CREATININE RATIO 20.2 (6.6-38.0); CALCIUM 8.3 MG/DL (8.5-10.1); CHLORIDE 111 MMOL/L (99-107); CREATININE 2.23 MG/DL (0.40-0.90); GLUCOSE 152 MG/DL (70-104); MAGNESIUM 2.6 MG/DL (1.5-2.4); PHOSPHORUS 2.9 MG/DL (2.3-4.5); POTASSIUM 5.3 MMOL/L (3.5-5.1); SODIUM 143 MMOL/L (135-145); TOTAL CARBON DIOXIDE 22.1 MMOL/L (24-32); eGFR 22 ML/MIN
--- NOTE | 2019-06-06 18:14 | NUR ---
Problems reprioritized. Patient report given, questions answered & plan of care reviewed with Radha BECERRA.
--- NOTE | 2019-06-06 18:19 | NUR ---
1814..Patient in room CICU 2012. I have received report from Margo BECERRA and had the opportunity to ask questions and assume patient care.
[2019-06-06] MEDS: morphine 4 MG/ML inj SYRINge IV PRN ×2 (18:39→20:17)
[2019-06-06] MEDS: sennosides/docusate sodium tablet PO SCH (20:00)
[2019-06-06] MEDS: vancomycin/NS 1 GM ADD-VANTAGE 250 ML IV SCH (20:18)
--- NOTE | 2019-06-06 21:11 | NUR ---
1999..Assessment as noted, morphine given x2 with good effedt for comfort, no other changes noted.
--- NOTE | 2019-06-06 22:26 | NUR ---
1999..Femstop released x2 minutes, right groin remains stable, no bleeding or hematoma noted, distal pulses intact. Reinflated to 60mmHg pressure.
--- NOTE | 2019-06-06 22:27 | NUR ---
2200.. Femstop removed, right groin remains stable, bath and linen change complete, starting to wean vent as tolerated.
[2019-06-07] VITALS (25 sets, daily range): BP systolic 104–161; BP diastolic 46–83
[2019-06-07] MEDS: ceFAZolin 1GM/D5W- ADD-VANTAGE 50 ML IV SCH ×3 (00:02→16:00)
[2019-06-07 03:07] LABS: BASOPHILS % (AUTO) 0.1 % (0-1); EOSINOPHILS % (AUTO) 0 % (0-6); HEMATOCRIT 24.8 % (35.0-45.0); HEMOGLOBIN 8.4 g/dl (12.0-16.0); LYMPHOCYTES # (AUTO) 0.3 X10'3 (1.1-4.8); LYMPHOCYTES % (AUTO) 3.3 % (21-51); MEAN CORPUSCULAR HEMOGLOBIN 30.5 PG (27.0-31.0); MEAN CORPUSCULAR HGB CONC 33.9 g/dL (33.0-36.5); MEAN CORPUSCULAR VOLUME 90.1 FL (78-98); MEAN PLATELET VOLUME 8.8 FL (7.4-10.4); MONOCYTES # (AUTO) 0.7 X10'3 (0-0.9); MONOCYTES % (AUTO) 7.2 % (2-12); NEUTROPHILS # (AUTO) 8.5 X10'3 (1.8-7.7); NEUTROPHILS % (AUTO) 89.4 % (42-75); PLATELET COUNT 102 X10'3 (140-440); RED BLOOD COUNT 2.76 X10'6 (4.20-5.60); RED CELL DISTRIBUTION WIDTH 15.5 % (11.5-14.5); WHITE BLOOD COUNT 9.5 X10'3 (4.5-11.0)
[2019-06-07] MEDS: morphine 4 MG/ML inj SYRINge IV PRN (03:18)
[2019-06-07 03:21] LABS: PARTIAL THROMBOPLASTIN TIME 26 SECONDS (22-32)
[2019-06-07 03:33] LABS: ALANINE AMINOTRANSFERASE 11 U/L (12-78); ALBUMIN 3.1 G/DL (3.4-5.0); ALBUMIN/GLOBULIN RATIO 1.6 (1.1-1.5); ALKALINE PHOSPHATASE 36 IU/L (46-116); ANION GAP 11 (8-16); ASPARTATE AMINO TRANSFERASE 32 U/L (10-37); BILIRUBIN,TOTAL 0.4 MG/DL (0.1-1.0); BLOOD UREA NITROGEN 47 MG/DL (7-18); BUN/CREATININE RATIO 20.3 (6.6-38.0); CALCIUM 8.6 MG/DL (8.5-10.1); CHLORIDE 111 MMOL/L (99-107); CREATININE 2.32 MG/DL (0.40-0.90); GLUCOSE 178 MG/DL (70-104); MAGNESIUM 2.6 MG/DL (1.5-2.4); PHOSPHORUS 4.7 MG/DL (2.3-4.5); POTASSIUM 5.3 MMOL/L (3.5-5.1); SODIUM 143 MMOL/L (135-145); TOTAL CARBON DIOXIDE 21.2 MMOL/L (24-32); TOTAL PROTEIN 5.1 G/DL (6.4-8.2); eGFR 21 ML/MIN
--- NOTE | 2019-06-07 03:37 | NUR ---
0300..Pt wakes up extremely agitated, will NOT follow command or direction, attempting to pull at tubes and lines. Morphine given for comfort with good effect. Vent weaning stopped at this time.
--- NOTE | 2019-06-07 05:09 | NUR ---
0500..Again wakes combative and will not follow direction/command, moves all extremities, no other changes noted.
--- NOTE | 2019-06-07 06:29 | NUR ---
0630..Problems reprioritized. Patient report given, questions answered & plan of care reviewed with Kirill BECERRA.
--- NOTE | 2019-06-07 06:33 | NUR ---
Patient in room CICU 2013. I have received report from Barb BECERRA and had the opportunity to ask questions and assume patient care.
[2019-06-07] MEDS ORDERED: MESSAGE TO NURSING PO ONE ×5 (07:55→10:00)
[2019-06-07] MEDS: gabapentin 300mg capsule PO SCH ×3 (08:00→20:03)
[2019-06-07] MEDS ORDERED: levoFLOXACIN-Levaquin 500mg/D5 100 ML IV SCH (08:00)
[2019-06-07] MEDS: aspirin 325mg tablet, delayed-release (Ecotrin) PO SCH (08:00)
[2019-06-07] MEDS ORDERED: metoprolol tartrate 12.5mg (1/2 tablet) PO SCH (08:00)
[2019-06-07 08:26] LABS: ABG BASE EXCESS -6.2 mmol/L (-2.0-3.0); ABG HCO3 18.1 mmol/L (22.0-26.0); ABG OXYGEN SATURATION 94.2 % (95-98); ABG PCO2 (T) 31.5 mmHg (35.0-45.0); ABG PH (T) 7.378 (7.350-7.450); ABG PO2 (T) 75.5 mmHg (83-108); FCOHb 0.2 % (0.5-1.5); FMetHb 0.3 % (0.3-1.12); FO2Hb 93.7 % (94-100); TOTAL HEMOGLOBIN 8.7 G/dl (12.0-16.0)
[2019-06-07] MEDS: mupirocin 2% nasal ointment 1gm UD NS SCH ×2 (08:26→19:16)
[2019-06-07] MEDS: vancomycin/NS 1 GM ADD-VANTAGE 250 ML IV SCH ×2 (08:26→20:04)
[2019-06-07] MEDS: atorvastatin 10mg tablet PO SCH (09:18)
[2019-06-07] MEDS: metoprolol tartrate 12.5mg (1/2 tablet) PO SCH ×2 (09:19→19:16)
[2019-06-07] MEDS: sennosides/docusate sodium tablet PO SCH ×2 (09:19→19:16)
[2019-06-07] MEDS: Insulin Reg/NS 100units/100mL 100 ML IV SCH (09:33)
[2019-06-07] MEDS ORDERED: albuterol 2.5 MG/3 ML nebule ONE (10:26)
[2019-06-07] MEDS ORDERED: albuterol 2.5 MG/3 ML nebule NEB ONE (10:35)
[2019-06-07] MEDS ORDERED: albuterol 2.5 MG/3 ML nebule NEB PRN (10:40)
[2019-06-07] MEDS ORDERED: mineral oil/petrolatum ophthal oint EACHEYE SCH (14:00)
--- NOTE | 2019-06-07 18:24 | NUR ---
Patient report given, questions answered & plan of care reviewed with Roxy BECERRA.
--- NOTE | 2019-06-07 18:30 | NUR ---
Patient in room CICU 2013. I have received report from Andrzej BECERRA and had the opportunity to ask questions and assume patient care.
[2019-06-07] MEDS ORDERED: mupirocin 2% nasal ointment 1gm UD NS SCH (20:00)
[2019-06-07] MEDS: lactobacillus rhamnosus 10,000 MMU CELLS/CAPSULE PO SCH (20:00)
[2019-06-07] MEDS: HYDROcodone/acetaminophen 10/325mg tab PO PRN (20:43)
[2019-06-08] VITALS (23 sets, daily range): BP systolic 132–174; BP diastolic 56–84
[2019-06-08] MEDS ORDERED: MALTODEXTRIN/FRUCTOSE 0.68 KCAL/ML LIQUID 296ML BOTTLE PO ONE (02:00)
[2019-06-08] MEDS: ceFAZolin 1GM/D5W- ADD-VANTAGE 50 ML IV SCH (02:11)
[2019-06-08] MEDS ORDERED: vancomycin/NS 1 GM ADD-VANTAGE 250 ML IV ONE (06:00)
[2019-06-08] MEDS ORDERED: cefazolin/dext.iso 2gm/50ml 50 ML IV ONE (06:00)
[2019-06-08] MEDS ORDERED: gabapentin 400mg capsule PO ONE (06:00)
[2019-06-08 06:01] LABS: BASOPHILS % (AUTO) 0.1 % (0-1); EOSINOPHILS % (AUTO) 0 % (0-6); HEMATOCRIT 23.3 % (35.0-45.0); HEMOGLOBIN 7.8 g/dl (12.0-16.0); LYMPHOCYTES # (AUTO) 0.6 X10'3 (1.1-4.8); LYMPHOCYTES % (AUTO) 5.1 % (21-51); MEAN CORPUSCULAR HGB CONC 33.6 g/dL (33.0-36.5); MEAN CORPUSCULAR VOLUME 92.1 FL (78-98); MEAN PLATELET VOLUME 9.6 FL (7.4-10.4); MONOCYTES % (AUTO) 8.8 % (2-12); NEUTROPHILS # (AUTO) 9.6 X10'3 (1.8-7.7); PLATELET COUNT 105 X10'3 (140-440); RED BLOOD COUNT 2.53 X10'6 (4.20-5.60); RED CELL DISTRIBUTION WIDTH 15.7 % (11.5-14.5); WHITE BLOOD COUNT 11.1 X10'3 (4.5-11.0)
--- NOTE | 2019-06-08 06:12 | NUR ---
Problems reprioritized. Patient report given, questions answered & plan of care reviewed with Andrzej BECERRA.
[2019-06-08 06:23] LABS: ANION GAP 12 (8-16); BLOOD UREA NITROGEN 53 MG/DL (7-18); BUN/CREATININE RATIO 21.9 (6.6-38.0); CALCIUM 8.4 MG/DL (8.5-10.1); CHLORIDE 109 MMOL/L (99-107); CREATININE 2.42 MG/DL (0.40-0.90); GLUCOSE 152 MG/DL (70-104); MAGNESIUM 2.5 MG/DL (1.5-2.4); PHOSPHORUS 6.3 MG/DL (2.3-4.5); POTASSIUM 4.9 MMOL/L (3.5-5.1); SODIUM 142 MMOL/L (135-145); TOTAL CARBON DIOXIDE 20.9 MMOL/L (24-32); eGFR 20 ML/MIN
--- NOTE | 2019-06-08 06:27 | NUR ---
Patient in room CICU 2013. I have received report from Patricia BECERRA and had the opportunity to ask questions and assume patient care.
[2019-06-08] MEDS: pantoprazole 40mg Tablet.DR PO SCH (07:57)
[2019-06-08] MEDS: aspirin 325mg tablet, delayed-release (Ecotrin) PO SCH (07:57)
[2019-06-08] MEDS: metoprolol tartrate 12.5mg (1/2 tablet) PO SCH (07:58)
[2019-06-08] MEDS: sennosides/docusate sodium tablet PO SCH ×2 (07:58→19:12)
[2019-06-08] MEDS: atorvastatin 10mg tablet PO SCH (07:58)
[2019-06-08] MEDS: levoFLOXACIN-Levaquin 250mg/D5 50 ML IV SCH (07:59)
[2019-06-08] MEDS: mupirocin 2% nasal ointment 1gm UD NS SCH (07:59)
[2019-06-08] MEDS: lactobacillus rhamnosus 10,000 MMU CELLS/CAPSULE PO SCH ×2 (08:00→19:12)
[2019-06-08] MEDS ORDERED: insulin glargine (Lantus) pen - multi-dose SQ PRN (08:00)
[2019-06-08] MEDS ORDERED: MESSAGE TO PHARMACY PO ONE (08:15)
[2019-06-08] MEDS ORDERED: dextrose 50%-water 50ml dispensing syringe IV PRN ×2 (08:15)
[2019-06-08] MEDS ORDERED: dextrose ORAL solution 15 GM/59 ML bottle PO PRN ×2 (08:15)
[2019-06-08] MEDS ORDERED: glucagon, human recombinant 1mg kit SUBCUT PRN (08:15)
[2019-06-08] MEDS: insulin glargine (Lantus) pen - multi-dose SQ SCH (08:36)
[2019-06-08 10:37] LABS: ACT @ 1.70 U 235 SEC (193-297); ACT @ 2.84 U 298 SEC (260-420); BASELINE ACT 123 SEC (101-148); PATIENT WEIGHT 94.0k KG
[2019-06-08 10:37] LABS: ACTIVATED CLOTTING TIME 143 SEC (101-148)
[2019-06-08] MEDS: sodium chloride 0.45% 1,000 ML IV SCH (10:58)
[2019-06-08] MEDS ORDERED: Insulin Reg/NS 100units/100mL 100 ML IV SCH (11:31)
[2019-06-08] MEDS ORDERED: metoprolol tartrate 50mg tablet PO ONE (12:15)
--- NOTE | 2019-06-08 12:19 | NUR ---
notified HALEY Maravilla, of pt's SBP in the 170s and HR in 80s-90s; orders received.
[2019-06-08] MEDS ORDERED: metoprolol tartrate 12.5mg (1/2 tablet) PO ONE (12:55)
--- NOTE | 2019-06-08 13:26 | NUR ---
CABG Consult: Pt/family seen by CORNELIA for written/verbal high protein/heart healthy diet eds w/ RD contact information provided. Pt is agreeable to chocolate ensure high protein TIJIANM; notified. Pt also reports enjoying cottage cheese w/ fruit at breakfast and vietnamese yogurt BIDLD; dietary notified. Addendum: 06/08/19 at [address] Amended: Links added.
[2019-06-08] MEDS: insulin Lispro (HumaLOG) vial - multi-dose SQ SCH ×3 (13:39→21:10)
[2019-06-08] MEDS ORDERED: furosemide 10 MG/1 ML 10ml inj IV ONE (17:00)
[2019-06-08] MEDS: lactose-reduced food (Ensure High Protein) 237ml bottle PO SCH (18:00)
--- NOTE | 2019-06-08 18:23 | NUR ---
Patient report given, questions answered & plan of care reviewed with Destiney BECERRA.
--- NOTE | 2019-06-08 18:24 | NUR ---
Patient in room CICU 2013. I have received report from HERNAN Donnelly and had the opportunity to ask questions and assume patient care.
[2019-06-08] MEDS: metoprolol tartrate 50mg tablet PO SCH (19:12)
[2019-06-08] MEDS ORDERED: metoprolol tartrate 12.5mg (1/2 tablet) PO SCH (20:00)
[2019-06-09] VITALS (20 sets, daily range): BP systolic 129–178; BP diastolic 56–83
[2019-06-09 04:54] LABS: BASOPHILS % (AUTO) 0.2 % (0-1); EOSINOPHILS % (AUTO) 0 % (0-6); HEMOGLOBIN 7.4 g/dl (12.0-16.0); LYMPHOCYTES # (AUTO) 0.8 X10'3 (1.1-4.8); LYMPHOCYTES % (AUTO) 7.9 % (21-51); MEAN CORPUSCULAR HGB CONC 34.2 g/dL (33.0-36.5); MEAN CORPUSCULAR VOLUME 90.6 FL (78-98); MEAN PLATELET VOLUME 9.2 FL (7.4-10.4); MONOCYTES # (AUTO) 0.9 X10'3 (0-0.9); MONOCYTES % (AUTO) 8.7 % (2-12); NEUTROPHILS # (AUTO) 8.4 X10'3 (1.8-7.7); NEUTROPHILS % (AUTO) 83.2 % (42-75); PLATELET COUNT 108 X10'3 (140-440); RED BLOOD COUNT 2.38 X10'6 (4.20-5.60); RED CELL DISTRIBUTION WIDTH 14.6 % (11.5-14.5); WHITE BLOOD COUNT 10.1 X10'3 (4.5-11.0)
[2019-06-09 05:07] LABS: HEMATOCRIT 21.5 % (35.0-45.0)
[2019-06-09 05:08] LABS: ALBUMIN 2.7 G/DL (3.4-5.0); ANION GAP 8 (8-16); BLOOD UREA NITROGEN 64 MG/DL (7-18); BUN/CREATININE RATIO 28.7 (6.6-38.0); CALCIUM 8.3 MG/DL (8.5-10.1); CHLORIDE 105 MMOL/L (99-107); CREATININE 2.23 MG/DL (0.40-0.90); GLUCOSE 195 MG/DL (70-104); MAGNESIUM 2.2 MG/DL (1.5-2.4); PHOSPHORUS 5.3 MG/DL (2.3-4.5); POTASSIUM 4.6 MMOL/L (3.5-5.1); SODIUM 137 MMOL/L (135-145); TOTAL CARBON DIOXIDE 24.4 MMOL/L (24-32); eGFR 22 ML/MIN
--- NOTE | 2019-06-09 06:10 | NUR ---
Problems reprioritized. Patient report given, questions answered & plan of care reviewed with HERNAN Donnelly.
[2019-06-09] MEDS: atorvastatin 10mg tablet PO SCH (07:08)
[2019-06-09] MEDS: pantoprazole 40mg Tablet.DR PO SCH (07:08)
[2019-06-09] MEDS: lactobacillus rhamnosus 10,000 MMU CELLS/CAPSULE PO SCH ×2 (07:08→19:27)
[2019-06-09] MEDS: sennosides/docusate sodium tablet PO SCH ×2 (07:09→19:27)
[2019-06-09] MEDS: aspirin 325mg tablet, delayed-release (Ecotrin) PO SCH (07:09)
[2019-06-09] MEDS: metoprolol tartrate 50mg tablet PO SCH ×2 (07:09→19:27)
[2019-06-09] MEDS: levoFLOXACIN-Levaquin 250mg/D5 50 ML IV SCH (07:10)
[2019-06-09] MEDS ORDERED: traMADol 50MG tablet PO PRN (07:50)
[2019-06-09] MEDS ORDERED: potassium Cl 20mEq/100mL bag 100 ML IV PRN (07:55)
[2019-06-09] MEDS ORDERED: potassium Cl 20 mEq SR tablet PO PRN (07:55)
[2019-06-09] MEDS ORDERED: magnesium 4gm in 100ml NS 100 ML IV PRN (07:55)
[2019-06-09] MEDS ORDERED: magnesium 2GM in 50ml NS 50 ML IV PRN (07:55)
[2019-06-09] MEDS: potassium Cl 20 mEq SR tablet PO SCH ×2 (08:00→19:58)
[2019-06-09] MEDS: aspirin 81mg tablet.DR PO SCH (08:00)
[2019-06-09] MEDS: insulin Lispro (HumaLOG) vial - multi-dose SQ SCH ×2 (08:46→13:38)
[2019-06-09] MEDS: insulin glargine (Lantus) pen - multi-dose SQ SCH ×2 (08:48→21:08)
[2019-06-09] MEDS: magnesium Cl slow-release 64mg tablet PO SCH ×2 (08:59→19:27)
[2019-06-09] MEDS: chlorthalidone 25mg tablet PO SCH (08:59)
[2019-06-09] MEDS: clopidogrel 75mg tablet PO SCH (09:00)
[2019-06-09] MEDS: atorvastatin 20mg tablet PO SCH (09:56)
[2019-06-09] MEDS: HYDROcodone/acetaminophen 10/325mg tab PO PRN (10:29)
--- NOTE | 2019-06-09 12:29 | NUR ---
pt report called to Caitie BECERRA; all questions answered.
--- NOTE | 2019-06-09 12:29 | NUR ---
Patient in room CICU 2012. I have received report from Zulayccu rn and had the opportunity to ask questions and assume patient care.
--- NOTE | 2019-06-09 12:30 | NUR ---
Initial: Pt admit w/ NSTEMI and acute kidney failure s/p L heart cath and CABG. Hx T2DM A1C 7.5; already seen for DM ed this admit by RD. Pt PO increased to 50-75% breakfast this AM; PO pending first chocolate ensure high protein TIDWM at lunch today. LBM 3/3 receiving routine colace, s/p MoM this AM, and if no BM after 8 hours to receive mag citrate per RN. Will continue to monitor for ONS acceptance and additional protein needs post-op. Rec: 1. advance diet to carb controlled/heart healthy as medically indicated 2. chocolate ensure high protein TIDWM 3. routine bowel care 4. wt per rx Addendum: 06/09/19 at [address] Amended: Links added.
--- NOTE | 2019-06-09 14:51 | NUR ---
Report called to receiving nurse. Transferred via Wheel Chair with all Belongings: pants, underwear,shoes, sweater, top, glasses and cell phone. Special Issues communicated to receiving nurse Caitie BECERRA.
--- NOTE | 2019-06-09 16:00 | NUR ---
Patient in room MED 316. I have received report from femi and had the opportunity to ask questions and assume patient care.
--- NOTE | 2019-06-09 16:00 | NUR ---
agree with previous corporate associate attorney.
--- NOTE | 2019-06-09 16:00 | NUR ---
received pt into 316 w/c to bed with x2 assist ,denies pain,oriented to surroundings
[2019-06-09] MEDS: lactose-reduced food (Ensure High Protein) 237ml bottle PO SCH (18:00)
[2019-06-09] MEDS ORDERED: ATORVASTATIN CALCIUM 40 MG PO SCH (21:00)
[2019-06-10] VITALS (7 sets, daily range): BP systolic 148–187; BP diastolic 70–87
[2019-06-10 02:50] LABS: BASOPHILS % (AUTO) 0.4 % (0-1); EOSINOPHILS # (AUTO) 0.1 X10'3 (0-0.9); EOSINOPHILS % (AUTO) 0.5 % (0-6); HEMATOCRIT 23.6 % (35.0-45.0); LYMPHOCYTES # (AUTO) 1.3 X10'3 (1.1-4.8); LYMPHOCYTES % (AUTO) 11.4 % (21-51); MEAN CORPUSCULAR HEMOGLOBIN 30.9 PG (27.0-31.0); MEAN CORPUSCULAR VOLUME 90.9 FL (78-98); MEAN PLATELET VOLUME 9.1 FL (7.4-10.4); MONOCYTES # (AUTO) 0.9 X10'3 (0-0.9); MONOCYTES % (AUTO) 8.2 % (2-12); NEUTROPHILS # (AUTO) 8.9 X10'3 (1.8-7.7); NEUTROPHILS % (AUTO) 79.5 % (42-75); PLATELET COUNT 150 X10'3 (140-440); RED BLOOD COUNT 2.59 X10'6 (4.20-5.60); RED CELL DISTRIBUTION WIDTH 14.9 % (11.5-14.5); WHITE BLOOD COUNT 11.1 X10'3 (4.5-11.0)
[2019-06-10 02:58] LABS: ALBUMIN 2.7 G/DL (3.4-5.0); ANION GAP 8 (8-16); BLOOD UREA NITROGEN 66 MG/DL (7-18); CALCIUM 8.5 MG/DL (8.5-10.1); CHLORIDE 100 MMOL/L (99-107); CREATININE 1.94 MG/DL (0.40-0.90); GLUCOSE 165 MG/DL (70-104); MAGNESIUM 2.2 MG/DL (1.5-2.4); POTASSIUM 4.8 MMOL/L (3.5-5.1); SODIUM 132 MMOL/L (135-145); eGFR 26 ML/MIN
--- NOTE | 2019-06-10 06:30 | NUR ---
Patient in room MED 316. I have received report from HERNAN Longoria and had the opportunity to ask questions and assume patient care.
--- NOTE | 2019-06-10 06:31 | NUR ---
Problems reprioritized. Patient report given, questions answered & plan of care reviewed with HERNAN Landrum.
[2019-06-10] MEDS ORDERED: magnesium citrate 296ml oral solution PO ONE (07:00)
[2019-06-10] MEDS: lactose-reduced food (Ensure High Protein) 237ml bottle PO SCH ×3 (08:00→18:00)
[2019-06-10] MEDS: pantoprazole 40mg Tablet.DR PO SCH (09:16)
[2019-06-10] MEDS: lactobacillus rhamnosus 10,000 MMU CELLS/CAPSULE PO SCH ×2 (09:16→21:13)
[2019-06-10] MEDS: magnesium Cl slow-release 64mg tablet PO SCH ×2 (09:16→20:00)
[2019-06-10] MEDS: clopidogrel 75mg tablet PO SCH (09:16)
[2019-06-10] MEDS: sennosides/docusate sodium tablet PO SCH ×2 (09:17→21:13)
[2019-06-10] MEDS: potassium Cl 20 mEq SR tablet PO SCH ×2 (09:17→20:00)
[2019-06-10] MEDS: aspirin 81mg tablet.DR PO SCH (09:17)
[2019-06-10] MEDS: atorvastatin 20mg tablet PO SCH (09:17)
[2019-06-10] MEDS: chlorthalidone 25mg tablet PO SCH (09:18)
[2019-06-10] MEDS: metoprolol tartrate 50mg tablet PO SCH (09:18)
[2019-06-10] MEDS: insulin Lispro (HumaLOG) vial - multi-dose SQ SCH ×2 (09:27→13:33)
[2019-06-10] MEDS: levoFLOXACIN-Levaquin 250mg/D5 50 ML IV SCH (10:00)
--- NOTE | 2019-06-10 18:00 | NUR ---
pt. blood glucose before dinner was 65. pt. was AOx4 so RN gave her some juice and her dinner. blood sugar was rechecked 15 min. later and it was at 79.
--- NOTE | 2019-06-10 18:15 | NUR ---
Patient in room MED 309. I have received report from Roe, and had the opportunity to ask questions and assume patient care.
--- NOTE | 2019-06-10 18:43 | NUR ---
Problems reprioritized. Patient report given, questions answered & plan of care reviewed with HERNAN Sargent.
--- NOTE | 2019-06-10 18:56 | NUR ---
Student documentation: I have reviewed and agree with all interventions, assessments performed and documented by KEYANA Mares.
[2019-06-10] MEDS: lisinopril 5mg tablet PO SCH (21:12)
[2019-06-10] MEDS: prazosin 1mg capsule PO SCH (21:13)
[2019-06-10] MEDS: metoprolol succinate 25mg (24-HOUR) SR. Tablet PO SCH (21:13)
[2019-06-10] MEDS: insulin glargine (Lantus) pen - multi-dose SQ SCH (22:21)
[2019-06-10] MEDS: HYDROcodone/acetaminophen 10/325mg tab PO PRN (22:32)
[2019-06-11] VITALS (19 sets, daily range): BP systolic 93–147; BP diastolic 34–65
--- NOTE | 2019-06-11 06:10 | NUR ---
Patient in room MED 316. I have received report from Arie BECERRA and had the opportunity to ask questions and assume patient care.
[2019-06-11 06:11] LABS: BASOPHILS % (AUTO) 0.3 % (0-1); EOSINOPHILS # (AUTO) 0.2 X10'3 (0-0.9); EOSINOPHILS % (AUTO) 2.8 % (0-6); HEMATOCRIT 23.3 % (35.0-45.0); HEMOGLOBIN 7.9 g/dl (12.0-16.0); LYMPHOCYTES # (AUTO) 1.6 X10'3 (1.1-4.8); MEAN CORPUSCULAR HEMOGLOBIN 30.6 PG (27.0-31.0); MEAN CORPUSCULAR HGB CONC 33.8 g/dL (33.0-36.5); MEAN CORPUSCULAR VOLUME 90.5 FL (78-98); MEAN PLATELET VOLUME 8.7 FL (7.4-10.4); MONOCYTES # (AUTO) 0.9 X10'3 (0-0.9); MONOCYTES % (AUTO) 11.4 % (2-12); NEUTROPHILS # (AUTO) 4.9 X10'3 (1.8-7.7); NEUTROPHILS % (AUTO) 64.5 % (42-75); PLATELET COUNT 176 X10'3 (140-440); RED BLOOD COUNT 2.58 X10'6 (4.20-5.60); RED CELL DISTRIBUTION WIDTH 14.2 % (11.5-14.5); WHITE BLOOD COUNT 7.6 X10'3 (4.5-11.0)
--- NOTE | 2019-06-11 06:21 | NUR ---
Problems reprioritized. Patient report given to Mario Alberto, questions answered & plan of care reviewed with .
[2019-06-11 06:22] LABS: ALBUMIN 2.4 G/DL (3.4-5.0); ANION GAP 4 (8-16); BLOOD UREA NITROGEN 61 MG/DL (7-18); BUN/CREATININE RATIO 34.5 (6.6-38.0); CALCIUM 8.1 MG/DL (8.5-10.1); CHLORIDE 101 MMOL/L (99-107); CREATININE 1.77 MG/DL (0.40-0.90); GLUCOSE 146 MG/DL (70-104); SODIUM 132 MMOL/L (135-145); TOTAL CARBON DIOXIDE 26.8 MMOL/L (24-32); eGFR 28 ML/MIN
[2019-06-11] MEDS: sennosides/docusate sodium tablet PO SCH ×2 (07:58→21:20)
[2019-06-11] MEDS: pantoprazole 40mg Tablet.DR PO SCH (07:58)
[2019-06-11] MEDS: atorvastatin 20mg tablet PO SCH (07:59)
[2019-06-11] MEDS: chlorthalidone 25mg tablet PO SCH (07:59)
[2019-06-11] MEDS: aspirin 81mg tablet.DR PO SCH (07:59)
[2019-06-11] MEDS: potassium Cl 20 mEq SR tablet PO SCH ×2 (08:00→20:00)
[2019-06-11] MEDS: magnesium Cl slow-release 64mg tablet PO SCH ×2 (08:00→20:00)
[2019-06-11] MEDS: lactobacillus rhamnosus 10,000 MMU CELLS/CAPSULE PO SCH ×2 (08:00→21:20)
[2019-06-11] MEDS: prazosin 1mg capsule PO SCH ×2 (08:01→21:20)
[2019-06-11] MEDS: clopidogrel 75mg tablet PO SCH (08:01)
[2019-06-11] MEDS: metoprolol succinate 25mg (24-HOUR) SR. Tablet PO SCH ×2 (08:01→21:20)
[2019-06-11] MEDS: levoFLOXACIN-Levaquin 250mg/D5 50 ML IV SCH (08:02)
[2019-06-11] MEDS: lactose-reduced food (Ensure High Protein) 237ml bottle PO SCH ×3 (08:02→18:00)
[2019-06-11] MEDS: insulin Lispro (HumaLOG) vial - multi-dose SQ SCH ×2 (09:00→13:29)
--- NOTE | 2019-06-11 09:00 | NUR ---
CASE MANAGEMENT PAGED: 316: PAM SHEETS - UPDATE FOR DCP? CHARLES ASKING. TY
--- NOTE | 2019-06-11 09:20 | NUR ---
CASE MANAGEMENT PAGED: 316: PAM SHEETS, FROM [facility], MIGHT MAKE A DIFFERENCE WHERE SHE'S REFERRED TO. THANK YOU
[2019-06-11] MEDS ORDERED: chlorthalidone 25mg tablet PO SCH (09:40)
--- NOTE | 2019-06-11 09:57 | NUR ---
CASE MANAGEMENT: 316: PAM SHEETS - SNF TRANSFER/TMS SIGNED
--- NOTE | 2019-06-11 10:58 | NUR ---
Called Eric DE LEON re: patient c/o chest tightness/pressure. VSS with BP slightly low 95/42 (71). Made aware of CXR as well, received orders for Lasix IV 20 mg once now, will cont. to monitor. Addendum: 06/11/19 at 1107 by Diana Thomson RN Tele monitor unchanged, SOB
[2019-06-11] MEDS ORDERED: furosemide 20 MG/2 ML vial IV ONE (11:05)
--- NOTE | 2019-06-11 11:35 | NUR ---
Got patient back into bed and applied O2 at 2 L per N/C for comfort, noted BP 106/49 (68), administered Lasix 20 mg IVP, will cont. to monitor BP., Had patient do I.S. and flutter valve, noted them put away in a patient belongings back, per I.S. reached 750 with 4 inhalations, and with flutter valve used 10 times, Daughter at bedside anxious about her mothers response. Comforted her and encouraged her to comfort her mother. Current Bp 108/51 (70). Will cont. to monitor.
--- NOTE | 2019-06-11 18:00 | NUR ---
Problems reprioritized. Patient report given, questions answered & plan of care reviewed with Arie BECERRA.
--- NOTE | 2019-06-11 18:36 | NUR ---
Patient in room MED 316. I have received report from Mario Alberto, and had the opportunity to ask questions and assume patient care.
--- NOTE | 2019-06-11 18:37 | NUR ---
patient had no appetite for dinner. refused the insulin coverage. Dinner sugar check was 148. Will recheck her blood sugar at 2100.
[2019-06-11] MEDS: lisinopril 5mg tablet PO SCH (21:20)
[2019-06-11] MEDS: insulin glargine (Lantus) pen - multi-dose SQ SCH (21:30)
--- NOTE | 2019-06-11 22:55 | NUR ---
The right patient blood pressure for 1800 and 2200 are at 1801 and 2201. The blood pressure at 1800 and 2200 does not belong to her. It was document at the wrong patient.
[2019-06-12] VITALS (19 sets, daily range): BP systolic 80–162; BP diastolic 39–66
[2019-06-12 06:10] LABS: BASOPHILS % (AUTO) 0.3 % (0-1); EOSINOPHILS # (AUTO) 0.2 X10'3 (0-0.9); EOSINOPHILS % (AUTO) 2.6 % (0-6); HEMATOCRIT 22.7 % (35.0-45.0); HEMOGLOBIN 7.8 g/dl (12.0-16.0); LYMPHOCYTES # (AUTO) 1.5 X10'3 (1.1-4.8); LYMPHOCYTES % (AUTO) 17.8 % (21-51); MEAN CORPUSCULAR HEMOGLOBIN 30.9 PG (27.0-31.0); MEAN CORPUSCULAR HGB CONC 34.3 g/dL (33.0-36.5); MEAN CORPUSCULAR VOLUME 90.2 FL (78-98); MEAN PLATELET VOLUME 8.4 FL (7.4-10.4); MONOCYTES # (AUTO) 0.9 X10'3 (0-0.9); MONOCYTES % (AUTO) 10.7 % (2-12); NEUTROPHILS # (AUTO) 5.8 X10'3 (1.8-7.7); NEUTROPHILS % (AUTO) 68.6 % (42-75); PLATELET COUNT 213 X10'3 (140-440); RED BLOOD COUNT 2.52 X10'6 (4.20-5.60); RED CELL DISTRIBUTION WIDTH 14.4 % (11.5-14.5); WHITE BLOOD COUNT 8.5 X10'3 (4.5-11.0)
[2019-06-12 06:27] LABS: ALBUMIN 2.4 G/DL (3.4-5.0); ANION GAP 6 (8-16); BLOOD UREA NITROGEN 62 MG/DL (7-18); BUN/CREATININE RATIO 32.5 (6.6-38.0); CALCIUM 7.7 MG/DL (8.5-10.1); CHLORIDE 98 MMOL/L (99-107); CREATININE 1.91 MG/DL (0.40-0.90); GLUCOSE 137 MG/DL (70-104); POTASSIUM 4.9 MMOL/L (3.5-5.1); SODIUM 131 MMOL/L (135-145); TOTAL CARBON DIOXIDE 27.2 MMOL/L (24-32); eGFR 26 ML/MIN
--- NOTE | 2019-06-12 06:30 | NUR ---
Patient in room MED 316. I have received report from Arie BECERRA and had the opportunity to ask questions and assume patient care.
--- NOTE | 2019-06-12 06:54 | NUR ---
Problems reprioritized. Patient report given to Mario Alberto, questions answered & plan of care reviewed with .
[2019-06-12] MEDS: atorvastatin 20mg tablet PO SCH (07:54)
[2019-06-12] MEDS: prazosin 1mg capsule PO SCH (07:54)
[2019-06-12] MEDS: sennosides/docusate sodium tablet PO SCH ×2 (07:55→21:03)
[2019-06-12] MEDS: clopidogrel 75mg tablet PO SCH (07:55)
[2019-06-12] MEDS: pantoprazole 40mg Tablet.DR PO SCH (07:55)
[2019-06-12] MEDS: lactobacillus rhamnosus 10,000 MMU CELLS/CAPSULE PO SCH ×2 (07:55→21:02)
[2019-06-12] MEDS: aspirin 81mg tablet.DR PO SCH (07:55)
[2019-06-12] MEDS: magnesium Cl slow-release 64mg tablet PO SCH ×2 (07:56→21:01)
[2019-06-12] MEDS: potassium Cl 20 mEq SR tablet PO SCH ×2 (07:56→20:00)
[2019-06-12] MEDS: metoprolol succinate 25mg (24-HOUR) SR. Tablet PO SCH ×2 (07:56→21:03)
[2019-06-12] MEDS: lactose-reduced food (Ensure High Protein) 237ml bottle PO SCH ×3 (07:57→18:00)
[2019-06-12] MEDS: chlorthalidone 25mg tablet PO SCH (07:57)
--- NOTE | 2019-06-12 08:50 | NUR ---
AT 0842, charge poster Denise and this nurse in patient's room to note at BP of 80/43. Symptomatic with c/o chest pain/tightness, dizziness, SOB, fatigue. Made Eric DE LEON aware at this time, stated symptoms came on precisely 45 minutes after patient received her cardiac medications. Changes to be made to medications per Eric. Made him aware that small 250 ml bolus was given to support blood pressure, oxygen applied and rested patient back in chair. No further orders noted at this time. Will cont. to monitor.
[2019-06-12] MEDS ORDERED: gabapentin 400mg capsule PO ONE (12:05)
[2019-06-12] MEDS: insulin Lispro (HumaLOG) vial - multi-dose SQ SCH ×2 (13:44→19:12)
--- NOTE | 2019-06-12 18:15 | NUR ---
Patient in room MED 316. I have received report from Diana BECERRA and had the opportunity to ask questions and assume patient care.
--- NOTE | 2019-06-12 18:22 | NUR ---
Problems reprioritized. Patient report given, questions answered & plan of care reviewed with Jenny BECERRA.
[2019-06-12] MEDS: lisinopril 5mg tablet PO SCH (21:02)
[2019-06-12] MEDS: gabapentin 400mg capsule PO SCH (21:03)
[2019-06-12] MEDS: insulin glargine (Lantus) pen - multi-dose SQ SCH (21:11)
[2019-06-13 02:00] VITALS: BP 125/59
--- NOTE | 2019-06-13 06:30 | NUR ---
Patient in room MED 316. I have received report from ANTHONY BECERRA and had the opportunity to ask questions and assume patient care.
[2019-06-13 06:33] LABS: ALBUMIN 2.3 G/DL (3.4-5.0); ANION GAP 5 (8-16); BLOOD UREA NITROGEN 65 MG/DL (7-18); BUN/CREATININE RATIO 30.8 (6.6-38.0); CHLORIDE 99 MMOL/L (99-107); CREATININE 2.11 MG/DL (0.40-0.90); GLUCOSE 133 MG/DL (70-104); SODIUM 130 MMOL/L (135-145); TOTAL CARBON DIOXIDE 26.2 MMOL/L (24-32); eGFR 23 ML/MIN
--- NOTE | 2019-06-13 06:46 | NUR ---
Problems reprioritized. Patient report given, questions answered & plan of care reviewed with Diana BECERRA.
[2019-06-13 06:53] VITALS: BP 142/53
[2019-06-13] MEDS: potassium Cl 20 mEq SR tablet PO SCH (08:00)
[2019-06-13] MEDS: magnesium Cl slow-release 64mg tablet PO SCH (08:00)
[2019-06-13 08:42] LABS: BASOPHILS # (AUTO) 0.1 X10'3 (0-0.2); BASOPHILS % (AUTO) 0.7 % (0-1); EOSINOPHILS # (AUTO) 0.2 X10'3 (0-0.9); EOSINOPHILS % (AUTO) 1.9 % (0-6); HEMATOCRIT 24.5 % (35.0-45.0); HEMOGLOBIN 8.6 g/dl (12.0-16.0); LYMPHOCYTES # (AUTO) 1.6 X10'3 (1.1-4.8); LYMPHOCYTES % (AUTO) 14.8 % (21-51); MEAN CORPUSCULAR HEMOGLOBIN 31.6 PG (27.0-31.0); MEAN CORPUSCULAR VOLUME 90.3 FL (78-98); MEAN PLATELET VOLUME 7.9 FL (7.4-10.4); MONOCYTES # (AUTO) 0.9 X10'3 (0-0.9); NEUTROPHILS # (AUTO) 8.1 X10'3 (1.8-7.7); NEUTROPHILS % (AUTO) 74.6 % (42-75); PLATELET COUNT 324 X10'3 (140-440); RED BLOOD COUNT 2.72 X10'6 (4.20-5.60); RED CELL DISTRIBUTION WIDTH 14.6 % (11.5-14.5); WHITE BLOOD COUNT 10.9 X10'3 (4.5-11.0)
[2019-06-13] MEDS: sennosides/docusate sodium tablet PO SCH (08:58)
[2019-06-13] MEDS: pantoprazole 40mg Tablet.DR PO SCH (08:58)
[2019-06-13] MEDS: gabapentin 400mg capsule PO SCH (08:58)
[2019-06-13] MEDS: aspirin 81mg tablet.DR PO SCH (08:58)
[2019-06-13] MEDS: lactobacillus rhamnosus 10,000 MMU CELLS/CAPSULE PO SCH (08:58)
[2019-06-13] MEDS: clopidogrel 75mg tablet PO SCH (08:58)
[2019-06-13] MEDS: metoprolol succinate 25mg (24-HOUR) SR. Tablet PO SCH (08:58)
[2019-06-13] MEDS: atorvastatin 20mg tablet PO SCH (08:58)
[2019-06-13] MEDS: chlorthalidone 25mg tablet PO SCH (08:58)
[2019-06-13] MEDS: lactose-reduced food (Ensure High Protein) 237ml bottle PO SCH (08:59)
[2019-06-13 09:01] LABS: ANISOCYTOSIS 1+; PLATELET ESTIMATE NORMAL; TOTAL CELLS COUNTED 100
[2019-06-13] MEDS: insulin Lispro (HumaLOG) vial - multi-dose SQ SCH (09:15)
[2019-06-13 10:16] LABS: MAGNESIUM 2.3 MG/DL (1.5-2.4)
--- NOTE | 2019-06-13 10:48 | NUR ---
PATIENT DISCHARGING TODAY, PLAN TO LEAVE AROUND 1200 TO HEAD TO [facility] FOR SWING BED, REPORT TO BE CALLED SOON.
[2019-06-13 11:00] VITALS: BP 124/50
--- NOTE | 2019-06-13 11:35 | NUR ---
Called report to Ирина BECERRA, made patient's son Seth aware and he stated that he'd inform his father. Will call Ирина BECERRA again to make aware of patient's departure time.
[2019-06-13 12:10] VITALS: BP 158/65
--- NOTE | 2019-06-13 12:20 | NUR ---
Marly cargo left with patient on gurney heading to [facility] at this time. Called Ирина BECERRA who's receiving patient to swing bed to let her know she's on her way. Unable to obtain UA successfully, made Ирина aware of this.
== END 2019-06-13 12:20 | DRG 233 ==
LOC: ER 01:47 → ED HOLD 03:13 → MED 3N 03:35 → ICU 2S 19:34 → CICU 2S 06-06 11:20 → MED 3N 06-09 14:35
PROVIDERS: ADMIT Family Medicine; ATTEND Family Medicine
PROC: 4A023N7 Measurement of Cardiac Sampling and Pressure, Left Heart, Percutaneous Approach (ICD-10-PCS; 2019-06-04)
PROC: B2111ZZ Fluoroscopy of Multiple Coronary Arteries using Low Osmolar Contrast (ICD-10-PCS; 2019-06-04)
PROC: 0211093 Bypass Coronary Artery, Two Arteries from Coronary Artery with Autologous Venous Tissue, Open Approach (ICD-10-PCS; 2019-06-06)
PROC: 06BP4ZZ Excision of Right Saphenous Vein, Percutaneous Endoscopic Approach (ICD-10-PCS; 2019-06-06)
PROC: 5A1221Z Performance of Cardiac Output, Continuous (ICD-10-PCS; 2019-06-06)
PROC: 30233N1 Transfusion of Nonautologous Red Blood Cells into Peripheral Vein, Percutaneous Approach (ICD-10-PCS; 2019-06-06)
PROC: 02100Z9 Bypass Coronary Artery, One Artery from Left Internal Mammary, Open Approach (ICD-10-PCS; principal; 2019-06-06 07:12)
DX: I21.4 Non-ST elevation (NSTEMI) myocardial infarction (principal); N17.0 Acute kidney failure with tubular necrosis; N18.4 Chronic kidney disease, stage 4 (severe); E11.22 Type 2 diabetes mellitus with diabetic chronic kidney disease; E11.42 Type 2 diabetes mellitus with diabetic polyneuropathy; E11.51 Type 2 diabetes mellitus with diabetic peripheral angiopathy without gangrene; E11.65 Type 2 diabetes mellitus with hyperglycemia; E66.9 Obesity, unspecified; E78.00 Pure hypercholesterolemia, unspecified; E78.5 Hyperlipidemia, unspecified; I12.9 Hypertensive chronic kidney disease with stage 1 through stage 4 chronic kidney disease, or unspecified chronic kidney disease; I35.1 Nonrheumatic aortic (valve) insufficiency; I25.5 Ischemic cardiomyopathy; I25.10 Atherosclerotic heart disease of native coronary artery without angina pectoris; J45.909 Unspecified asthma, uncomplicated; Z68.37 Body mass index [BMI] 37.0-37.9, adult; Z79.84 Long term (current) use of oral hypoglycemic drugs; Z79.899 Other long term (current) drug therapy; Z90.710 Acquired absence of both cervix and uterus; Z91.19 Patient's noncompliance with other medical treatment and regimen; Z92.3 Personal history of irradiation; Z85.850 Personal history of malignant neoplasm of thyroid
CPT/HCPCS: 0232T; 93312; 93325; 93458; 99285; 36415; 36430; 36600; 71045; 76937; 80048; 80053; 80061; 81001; 82330; 82435; 82570; 82803; 82947; 82948; 83036; 83735; 84100; 84132; 84156; 84295; 84300; 84443; 84484; 85018; 85025; 85347; 85384; 85576; 85610; 85730; 86885; 86900; 86901; 86920; 87070; 87077; 87081; 87088; 87186; 87207; 93005; 93880; 93970; 94002; 94003; 94010; 94640; 94668; 94760; 97110; 97116; 97161; 97530; 99152; 99153; A4618; A4620; A6258; A6402; A6449; A7000; A7048; C1713; C1751; C9113; G0378; J0360; J0690; J1250; J1265; J1644; J1815; J1940; J1956; J2001; J2060; J2250; J2270; J2370; J2405; J2440; J2597; J2704; J2720; J2765; J2795; J3010; J3246; J3370; J3475; J3480; J3490; J7030; J7040; J7050; J7120; P9016; Q9967

== ENCOUNTER 2019-12-11 13:30 | Emergency (ER) | payer MEDICARE, MEDICAID ==
[~2019-12-11] VITALS: Ht 157.5 cm; Wt 82.7 kg
[~2019-12-11 13:30] MED LIST: ATOR40TA72 PO; CARV3.122 PO; CHLO25TA10 PO; CLOP75TA35 PO; GABA-532 PO; GABA800T11 PO; LEVO175T7 PO; NORT50CA PO; PIOG45TA65 PO; TRAM50TA2 PO
--- NOTE | 2019-12-11 15:56 | NUR ---
natasha daughter in law [phone]
[2019-12-11] MEDS ORDERED: traMADol 50MG tablet PO ONE (16:35)
[2019-12-11] MEDS ORDERED: APIX5TAB3 PO (16:45)
[2019-12-11] MEDS ORDERED: apixaban 5mg tablet PO ONE (16:45)
[2019-12-11 16:46] LABS: ALANINE AMINOTRANSFERASE 27 U/L (12-78); ALBUMIN 2.9 G/DL (3.4-5.0); ALBUMIN/GLOBULIN RATIO 0.6 (1.1-1.5); ALKALINE PHOSPHATASE 162 IU/L (46-116); ANION GAP 9 (8-16); ASPARTATE AMINO TRANSFERASE 15 U/L (10-37); BILIRUBIN,TOTAL 0.2 MG/DL (0.1-1.0); BLOOD UREA NITROGEN 69 MG/DL (7-18); BUN/CREATININE RATIO 34.3 (6.6-38.0); CALCIUM 8.7 MG/DL (8.5-10.1); CHLORIDE 102 MMOL/L (99-107); CREATININE 2.01 MG/DL (0.40-0.90); GLUCOSE 249 MG/DL (70-104); POTASSIUM 3.8 MMOL/L (3.5-5.1); SODIUM 135 MMOL/L (135-145); TOTAL CARBON DIOXIDE 24.4 MMOL/L (24-32); TOTAL PROTEIN 7.5 G/DL (6.4-8.2); eGFR 24 ML/MIN
[2019-12-11 16:49] LABS: BASOPHILS % (AUTO) 0.5 % (0-1); EOSINOPHILS # (AUTO) 0.2 X10'3 (0-0.9); EOSINOPHILS % (AUTO) 2.3 % (0-6); HEMATOCRIT 30.4 % (35.0-45.0); LYMPHOCYTES # (AUTO) 1.3 X10'3 (1.1-4.8); MEAN CORPUSCULAR HEMOGLOBIN 27.6 PG (27.0-31.0); MEAN CORPUSCULAR HGB CONC 32.8 g/dL (33.0-36.5); MEAN CORPUSCULAR VOLUME 84.1 FL (78-98); MEAN PLATELET VOLUME 6.8 FL (7.4-10.4); MONOCYTES # (AUTO) 0.5 X10'3 (0-0.9); MONOCYTES % (AUTO) 7.4 % (2-12); NEUTROPHILS # (AUTO) 4.6 X10'3 (1.8-7.7); NEUTROPHILS % (AUTO) 69.8 % (42-75); PLATELET COUNT 365 X10'3 (140-440); RED BLOOD COUNT 3.61 X10'6 (4.20-5.60); RED CELL DISTRIBUTION WIDTH 15.3 % (11.5-14.5); WHITE BLOOD COUNT 6.7 X10'3 (4.5-11.0)
[2019-12-11 17:17] VITALS: BP 179/80
== END 2019-12-11 18:09 | disposition home or self-care (01) ==
LOC: ER 13:30
DX: I82.402 Acute embolism and thrombosis of unspecified deep veins of left lower extremity (principal); N18.9 Chronic kidney disease, unspecified; I25.10 Atherosclerotic heart disease of native coronary artery without angina pectoris; E78.00 Pure hypercholesterolemia, unspecified; I12.9 Hypertensive chronic kidney disease with stage 1 through stage 4 chronic kidney disease, or unspecified chronic kidney disease; J45.909 Unspecified asthma, uncomplicated; E11.22 Type 2 diabetes mellitus with diabetic chronic kidney disease; Z79.899 Other long term (current) drug therapy
CPT/HCPCS: 36415; 80053; 85025; 99283

== ENCOUNTER 2020-07-20 10:18 | Inpatient (IN) | payer MEDICARE, MEDICAID ==
[~2020-07-20] VITALS: Ht 157.5 cm; Wt 101.6 kg
[~2020-07-20 10:18] MED LIST changes: +APIX5TAB3 PO; +CLOP75TA34 PO; -CLOP75TA35 PO
[2020-07-20 11:47] LABS: BASOPHILS # (AUTO) 0.1 X10'3 (0-0.2); BASOPHILS % (AUTO) 0.6 % (0-1); EOSINOPHILS # (AUTO) 0.1 X10'3 (0-0.9); EOSINOPHILS % (AUTO) 0.6 % (0-6); HEMATOCRIT 27.2 % (35.0-45.0); HEMOGLOBIN 8.9 g/dl (12.0-16.0); LYMPHOCYTES # (AUTO) 1.1 X10'3 (1.1-4.8); LYMPHOCYTES % (AUTO) 9.8 % (21-51); MEAN CORPUSCULAR HEMOGLOBIN 27.1 PG (27.0-31.0); MEAN CORPUSCULAR HGB CONC 32.6 g/dL (33.0-36.5); MEAN PLATELET VOLUME 6.5 FL (7.4-10.4); MONOCYTES # (AUTO) 0.7 X10'3 (0-0.9); MONOCYTES % (AUTO) 5.9 % (2-12); NEUTROPHILS # (AUTO) 9.5 X10'3 (1.8-7.7); NEUTROPHILS % (AUTO) 83.1 % (42-75); PLATELET COUNT 379 X10'3 (140-440); RED BLOOD COUNT 3.28 X10'6 (4.20-5.60); RED CELL DISTRIBUTION WIDTH 15.6 % (11.5-14.5); WHITE BLOOD COUNT 11.4 X10'3 (4.5-11.0)
[2020-07-20 12:03] LABS: ALANINE AMINOTRANSFERASE 16 U/L (12-78); ALBUMIN 2.8 G/DL (3.4-5.0); ALBUMIN/GLOBULIN RATIO 0.5 (1.1-1.5); ALKALINE PHOSPHATASE 102 IU/L (46-116); ANION GAP 10 (8-16); ASPARTATE AMINO TRANSFERASE 12 U/L (10-37); BILIRUBIN,TOTAL 0.3 MG/DL (0.1-1.0); BLOOD UREA NITROGEN 64 MG/DL (7-18); BUN/CREATININE RATIO 23.4 (6.6-38.0); CALCIUM 9.3 MG/DL (8.5-10.1); CHLORIDE 99 MMOL/L (99-107); CREATININE 2.74 MG/DL (0.40-0.90); GLUCOSE 185 MG/DL (70-104); POTASSIUM 3.9 MMOL/L (3.5-5.1); SODIUM 137 MMOL/L (135-145); TOTAL PROTEIN 8.2 G/DL (6.4-8.2); eGFR 17 ML/MIN
[2020-07-20] MEDS ORDERED: HYDROcodone/acetaminophen 5mg/325mg tablet PO ONE (14:55)
[2020-07-20] MEDS ORDERED: ATOR-2 PO (16:47)
[2020-07-20] MEDS ORDERED: LEVO200T8 PO (16:47)
[2020-07-20] MEDS ORDERED: PANT40TA54 PO (16:53)
[2020-07-20] MEDS ORDERED: FURO40TA4 PO (16:53)
[2020-07-20] MEDS ORDERED: POLY510P31 PO (16:53)
[2020-07-20] MEDS ORDERED: INSU100I25 SQ (16:53)
[2020-07-20] MEDS ORDERED: POTA10TA10 PO (16:53)
[2020-07-20] MEDS ORDERED: METO50TA17 PO (16:53)
[2020-07-20] MEDS ORDERED: AMLO10TA13 PO (16:53)
[2020-07-20] MEDS ORDERED: DOCU-337 PO (16:53)
[2020-07-20] MEDS ORDERED: CIPR250T4 PO (16:53)
[2020-07-20] MEDS ORDERED: ASPI-12 PO (16:54)
[2020-07-20] MEDS ORDERED: MULT-1085 PO (16:55)
[2020-07-20] MEDS ORDERED: acetaminophen 325mg tablet PO PRN (17:00)
[2020-07-20] MEDS ORDERED: mag hydrox/Alum hydrox/simeth 30ml oral suspension PO PRN (17:00)
[2020-07-20] MEDS ORDERED: magnesium hydroxide 30ml (MOM) UD suspension PO PRN (17:00)
--- NOTE | 2020-07-20 17:28 | NUR ---
Dara Diamond ([id number]): [phone]
--- NOTE | 2020-07-20 17:48 | NUR ---
called pharmacy for the rocephin to be made since it isn't in the omnicel
[2020-07-20] MEDS: CefTRIAXone/D5W-Rocephin 1gm 50 ML IV SCH (18:07)
[2020-07-20] MEDS: normal saline 1000ml 1,000 ML IV SCH (18:07)
--- NOTE | 2020-07-20 18:24 | NUR ---
vet tech at bedside
[2020-07-20] MEDS: nortriptyline 25mg capsule PO SCH (21:21)
[2020-07-20] MEDS: gabapentin 400mg capsule PO SCH (21:21)
[2020-07-20] MEDS: metoprolol tartrate 50mg tablet PO SCH (21:21)
[2020-07-20] MEDS: enoxaparin 30mg/0.3ml syringe SQ SCH (21:22)
[2020-07-20] MEDS: clindamycin 600mg/D5W 50ml 50 ML IV SCH (21:27)
[2020-07-20] MEDS: insulin glargine (Lantus) pen - multi-dose SQ SCH (21:36)
[2020-07-20 23:45] VITALS: BP 143/78
[2020-07-21] MEDS: clindamycin 600mg/D5W 50ml 50 ML IV SCH ×4 (01:06→21:32)
[2020-07-21 02:00] VITALS: BP 144/60
[2020-07-21] MEDS: normal saline 1000ml 1,000 ML IV SCH ×3 (04:00→16:13)
[2020-07-21 06:00] VITALS: BP 154/82
[2020-07-21 06:14] LABS: HEMOGLOBIN A1C 9.9 % (4.5-6.2)
[2020-07-21 06:20] LABS: BASOPHILS # (AUTO) 0.1 X10'3 (0-0.2); BASOPHILS % (AUTO) 0.7 % (0-1); EOSINOPHILS # (AUTO) 0.1 X10'3 (0-0.9); EOSINOPHILS % (AUTO) 1.4 % (0-6); HEMATOCRIT 23.2 % (35.0-45.0); HEMOGLOBIN 7.6 g/dl (12.0-16.0); LYMPHOCYTES # (AUTO) 1.2 X10'3 (1.1-4.8); LYMPHOCYTES % (AUTO) 14.7 % (21-51); MEAN CORPUSCULAR HEMOGLOBIN 27.2 PG (27.0-31.0); MEAN CORPUSCULAR VOLUME 82.6 FL (78-98); MEAN PLATELET VOLUME 6.5 FL (7.4-10.4); MONOCYTES # (AUTO) 0.8 X10'3 (0-0.9); MONOCYTES % (AUTO) 8.8 % (2-12); NEUTROPHILS # (AUTO) 6.3 X10'3 (1.8-7.7); NEUTROPHILS % (AUTO) 74.4 % (42-75); PLATELET COUNT 315 X10'3 (140-440); RED CELL DISTRIBUTION WIDTH 15.5 % (11.5-14.5); WHITE BLOOD COUNT 8.5 X10'3 (4.5-11.0)
[2020-07-21 06:27] LABS: ALBUMIN 2.4 G/DL (3.4-5.0); ANION GAP 12 (8-16); BLOOD UREA NITROGEN 67 MG/DL (7-18); BUN/CREATININE RATIO 24.8 (6.6-38.0); CALCIUM 8.4 MG/DL (8.5-10.1); CHLORIDE 102 MMOL/L (99-107); GLUCOSE 130 MG/DL (70-104); POTASSIUM 3.3 MMOL/L (3.5-5.1); SODIUM 139 MMOL/L (135-145); TOTAL CARBON DIOXIDE 24.6 MMOL/L (24-32); eGFR 17 ML/MIN
--- NOTE | 2020-07-21 06:41 | NUR ---
report given to michelle Perry.
[2020-07-21] MEDS: insulin glargine (Lantus) pen - multi-dose SQ SCH ×2 (08:00→22:04)
[2020-07-21] MEDS: aspirin 325mg tablet PO SCH (08:00)
[2020-07-21] MEDS: amLODIPine 5mg tablet PO SCH (08:00)
[2020-07-21] MEDS: potassium chloride 10mEq ER tablet PO SCH (08:00)
[2020-07-21] MEDS: polyethylene glycol 3350 17gm powd pack PO SCH (08:00)
[2020-07-21] MEDS: multivitamins, therapeutics tablet PO SCH (08:00)
[2020-07-21] MEDS: furosemide 40mg tablet PO SCH (08:00)
[2020-07-21] MEDS: enoxaparin 30mg/0.3ml syringe SQ SCH ×2 (08:00→21:34)
[2020-07-21] MEDS: atorvastatin 20mg tablet PO SCH (08:00)
[2020-07-21 10:00] VITALS: BP 140/65
[2020-07-21] MEDS: CefTRIAXone/D5W-Rocephin 1gm 50 ML IV SCH (10:16)
[2020-07-21] MEDS: pantoprazole 40mg Tablet.DR PO SCH (10:18)
[2020-07-21] MEDS: levoTHYROXINE 100mcg tablet PO SCH (10:19)
[2020-07-21] MEDS: metoprolol tartrate 50mg tablet PO SCH ×2 (10:23→21:40)
--- NOTE | 2020-07-21 10:38 | NUR ---
DM Consult: A1C 9.9. Pt admit DX BLE cellulitis, L foot osteomyelitis, and multiple BLE wounds pending WOC assessment per EMR. 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 Pt NPO at this time for OR. LBM 07/18. Would benefit from high protein/DM eds once appropriate post-op.Will monitor for diet advancement and additional protein/wound healing needs post-op. Rec: 1. advance diet as medically indicated to carb controlled 2. monitor for ONS needs post-op; consider Stanislav pending WOC assessment 3. routine bowel care 4. MVI for wound healing once PO 5. scaled wt this admit Addendum: 07/21/20 at [address] Amended: Links added.
[2020-07-21] MEDS ORDERED: potassium Cl 20 mEq SR tablet PO ONE ×2 (13:15→16:19)
[2020-07-21 18:00] VITALS: BP 139/51
[2020-07-21] MEDS: docusate sod 100mg capsule PO PRN (21:32)
[2020-07-21] MEDS: gabapentin 400mg capsule PO SCH (21:33)
[2020-07-21] MEDS: lactobacillus rhamnosus 10,000 MMU CELLS/CAPSULE PO SCH (21:33)
[2020-07-21] MEDS: nortriptyline 25mg capsule PO SCH (21:33)
[2020-07-21 21:45] VITALS: BP 147/57
[2020-07-21] MEDS: morphine 2 MG/ML inj. syringe IV PRN (21:46)
--- NOTE | 2020-07-22 00:03 | NUR ---
noted pt had slight fever. instructed to CDB - temp down after 10 min. will continue to monitor
[2020-07-22] MEDS: clindamycin 600mg/D5W 50ml 50 ML IV SCH ×2 (01:59→08:15)
[2020-07-22] MEDS: normal saline 1000ml 1,000 ML IV SCH ×2 (03:33→14:16)
[2020-07-22 06:00] VITALS: BP 145/56
--- NOTE | 2020-07-22 06:11 | NUR ---
reported to days. noted accucheck was 81 at 0300. noted to day RN as pt is NPO to watch. pt asymptomatic.
[2020-07-22 06:52] LABS: BASOPHILS # (AUTO) 0.1 X10'3 (0-0.2); EOSINOPHILS # (AUTO) 0.1 X10'3 (0-0.9); EOSINOPHILS % (AUTO) 1.6 % (0-6); HEMATOCRIT 23.9 % (35.0-45.0); HEMOGLOBIN 7.8 g/dl (12.0-16.0); LYMPHOCYTES # (AUTO) 1.1 X10'3 (1.1-4.8); LYMPHOCYTES % (AUTO) 15.4 % (21-51); MEAN CORPUSCULAR HEMOGLOBIN 27.2 PG (27.0-31.0); MEAN CORPUSCULAR HGB CONC 32.7 g/dL (33.0-36.5); MEAN CORPUSCULAR VOLUME 83.2 FL (78-98); MEAN PLATELET VOLUME 6.6 FL (7.4-10.4); MONOCYTES # (AUTO) 0.7 X10'3 (0-0.9); MONOCYTES % (AUTO) 10.2 % (2-12); NEUTROPHILS # (AUTO) 5.2 X10'3 (1.8-7.7); NEUTROPHILS % (AUTO) 71.8 % (42-75); PLATELET COUNT 278 X10'3 (140-440); RED BLOOD COUNT 2.87 X10'6 (4.20-5.60); RED CELL DISTRIBUTION WIDTH 15.7 % (11.5-14.5); WHITE BLOOD COUNT 7.2 X10'3 (4.5-11.0)
[2020-07-22 07:01] LABS: ALBUMIN 2.1 G/DL (3.4-5.0); ANION GAP 10 (8-16); BLOOD UREA NITROGEN 54 MG/DL (7-18); BUN/CREATININE RATIO 23.8 (6.6-38.0); CALCIUM 8.1 MG/DL (8.5-10.1); CHLORIDE 106 MMOL/L (99-107); CREATININE 2.27 MG/DL (0.40-0.90); GLUCOSE 86 MG/DL (70-104); POTASSIUM 3.8 MMOL/L (3.5-5.1); SODIUM 141 MMOL/L (135-145); TOTAL CARBON DIOXIDE 25.3 MMOL/L (24-32); eGFR 21 ML/MIN
[2020-07-22] MEDS: atorvastatin 20mg tablet PO SCH ×2 (08:00→12:26)
[2020-07-22] MEDS: furosemide 40mg tablet PO SCH ×2 (08:00→12:27)
[2020-07-22] MEDS: enoxaparin 30mg/0.3ml syringe SQ SCH ×3 (08:00→20:50)
[2020-07-22] MEDS: amLODIPine 5mg tablet PO SCH ×2 (08:00→12:26)
[2020-07-22] MEDS: aspirin 325mg tablet PO SCH ×2 (08:00→12:25)
[2020-07-22] MEDS: insulin glargine (Lantus) pen - multi-dose SQ SCH ×3 (08:00→20:56)
[2020-07-22] MEDS: potassium chloride 10mEq ER tablet PO SCH ×2 (08:00→12:27)
[2020-07-22] MEDS: polyethylene glycol 3350 17gm powd pack PO SCH ×2 (08:00→12:25)
[2020-07-22] MEDS: CefTRIAXone/D5W-Rocephin 1gm 50 ML IV SCH (08:15)
[2020-07-22] MEDS: lactobacillus rhamnosus 10,000 MMU CELLS/CAPSULE PO SCH ×2 (08:16→20:50)
[2020-07-22] MEDS: metoprolol tartrate 50mg tablet PO SCH ×2 (08:16→20:54)
[2020-07-22] MEDS: multivitamins, therapeutics tablet PO SCH (08:16)
[2020-07-22] MEDS: levoTHYROXINE 100mcg tablet PO SCH (08:16)
[2020-07-22] MEDS: pantoprazole 40mg Tablet.DR PO SCH (08:17)
[2020-07-22] MEDS: morphine 2 MG/ML inj. syringe IV PRN ×2 (08:25→14:06)
[2020-07-22] MEDS ORDERED: FLU VACC QS2020-21(6MOS UP)/PF 60 MCG/0.5 ML SYRINGE IMVAC ONE (10:00)
[2020-07-22] MEDS ORDERED: pneumococcal 23-VAL P-sac vacc 25 mcg/0.5ml vial IMVAC ONE (10:00)
[2020-07-22] MEDS: HYDROcodone/acetaminophen 5mg/325mg tablet PO PRN ×2 (12:26→20:50)
[2020-07-22] MEDS ORDERED: cefepime 1GM/NS ADD-VANTAGE 100 ML IV SCH (12:40)
[2020-07-22] MEDS ORDERED: cefepime 1GM in D5W 50mL 50 ML IV SCH (12:50)
[2020-07-22 14:00] VITALS: BP 140/60
[2020-07-22] MEDS: cefepime 1GM in D5W 50mL 50 ML IV SCH ×2 (14:00→22:58)
--- NOTE | 2020-07-22 14:30 | NUR ---
DM consult f/u 07/22: CORNELIA internal audit director made multiple attempts to visit pt however unavailable. Will attempt DM/high protein education another time. Addendum: 07/22/20 at [address] Amended: Links added. Addendum: 07/22/20 at [address] I have reviewed and agree with note by software development intern. Joceline Mckoy RD
[2020-07-22] MEDS: metroNIDAZOLE-Flagyl 500mg/NS 100 ML IV SCH (16:11)
[2020-07-22 18:00] VITALS: BP 148/53
--- NOTE | 2020-07-22 19:38 | NUR ---
pt ate all of dinner. tolerated well. assisted with PM care. no needs identified.
[2020-07-22] MEDS: nortriptyline 25mg capsule PO SCH (20:50)
[2020-07-22] MEDS: gabapentin 400mg capsule PO SCH (20:54)
[2020-07-22 22:00] VITALS: BP 145/63
[2020-07-23] MEDS: metroNIDAZOLE-Flagyl 500mg/NS 100 ML IV SCH ×4 (00:25→23:59)
[2020-07-23] MEDS: normal saline 1000ml 1,000 ML IV SCH ×3 (03:07→21:44)
--- NOTE | 2020-07-23 06:24 | NUR ---
reported to days. noted skin issues, turn q2, and awaiting improvement in GFR for CTA of legs. doppler to find pulses.
--- NOTE | 2020-07-23 06:28 | NUR ---
Patient in room ORTHO 4020. I have received report from main Ayers and had the opportunity to ask questions and assume patient care.
[2020-07-23 06:33] LABS: BASOPHILS # (AUTO) 0.1 X10'3 (0-0.2); EOSINOPHILS # (AUTO) 0.2 X10'3 (0-0.9); EOSINOPHILS % (AUTO) 1.8 % (0-6); HEMATOCRIT 24.3 % (35.0-45.0); HEMOGLOBIN 7.9 g/dl (12.0-16.0); LYMPHOCYTES % (AUTO) 11.7 % (21-51); MEAN CORPUSCULAR HEMOGLOBIN 27.4 PG (27.0-31.0); MEAN CORPUSCULAR HGB CONC 32.7 g/dL (33.0-36.5); MEAN CORPUSCULAR VOLUME 83.7 FL (78-98); MEAN PLATELET VOLUME 6.6 FL (7.4-10.4); MONOCYTES # (AUTO) 0.8 X10'3 (0-0.9); MONOCYTES % (AUTO) 8.5 % (2-12); NEUTROPHILS # (AUTO) 6.8 X10'3 (1.8-7.7); PLATELET COUNT 312 X10'3 (140-440); RED CELL DISTRIBUTION WIDTH 15.5 % (11.5-14.5); WHITE BLOOD COUNT 8.8 X10'3 (4.5-11.0)
[2020-07-23 06:53] LABS: ALBUMIN 2.2 G/DL (3.4-5.0); ANION GAP 12 (8-16); BLOOD UREA NITROGEN 49 MG/DL (7-18); BUN/CREATININE RATIO 23.1 (6.6-38.0); CALCIUM 8.1 MG/DL (8.5-10.1); CHLORIDE 106 MMOL/L (99-107); CREATININE 2.12 MG/DL (0.40-0.90); GLUCOSE 119 MG/DL (70-104); POTASSIUM 3.6 MMOL/L (3.5-5.1); SODIUM 141 MMOL/L (135-145); TOTAL CARBON DIOXIDE 22.9 MMOL/L (24-32); eGFR 23 ML/MIN
[2020-07-23 07:00] VITALS: BP 165/62
[2020-07-23] MEDS: lactobacillus rhamnosus 10,000 MMU CELLS/CAPSULE PO SCH ×2 (07:31→19:53)
[2020-07-23] MEDS: enoxaparin 30mg/0.3ml syringe SQ SCH ×2 (07:31→20:01)
[2020-07-23] MEDS: pantoprazole 40mg Tablet.DR PO SCH (07:31)
[2020-07-23] MEDS: aspirin 325mg tablet PO SCH (07:31)
[2020-07-23] MEDS: potassium chloride 10mEq ER tablet PO SCH (07:32)
[2020-07-23] MEDS: multivitamins, therapeutics tablet PO SCH (07:32)
[2020-07-23] MEDS: amLODIPine 5mg tablet PO SCH (07:32)
[2020-07-23] MEDS: atorvastatin 20mg tablet PO SCH (07:33)
[2020-07-23] MEDS: metoprolol tartrate 50mg tablet PO SCH ×2 (07:33→20:00)
[2020-07-23] MEDS: levoTHYROXINE 100mcg tablet PO SCH (07:33)
[2020-07-23] MEDS: polyethylene glycol 3350 17gm powd pack PO SCH (07:33)
[2020-07-23] MEDS: furosemide 40mg tablet PO SCH (07:46)
[2020-07-23] MEDS: HYDROcodone/acetaminophen 5mg/325mg tablet PO PRN (07:47)
[2020-07-23] MEDS: insulin glargine (Lantus) pen - multi-dose SQ SCH ×2 (07:51→20:05)
[2020-07-23] MEDS: cefepime 1GM in D5W 50mL 50 ML IV SCH ×2 (09:10→19:52)
[2020-07-23] MEDS: morphine 2 MG/ML inj. syringe IV PRN (09:16)
[2020-07-23 10:00] VITALS: BP 100/61
--- NOTE | 2020-07-23 12:27 | NUR ---
F/u: Per WOC notes pt with multiple venous wounds with unstable eschar to right posterior calf, unstageable pressure injury with intact eschar to right heel, pressure/arterial wound with intact eschar to right 1st metatarsal heal, eschar with intact sutures to right 5th metatarsal site s/p recent amputation, small arterial ulcer to right dorsal foot and anterior ankle with unstageable pressure wound with intact eschar, healing pressure injury to left heel, DTI with no open area to left anterior ankle, toes with multiple small arterial ulcers with intact eschar, and DTI to sacrum. Patient's diet has been advanced to CHO controlled, pt documented with improving PO intake up to 100% at two most recent meals. Pt seen at bedside provided with written and verbal protein education and written DM education. Pt in too much pain to continue with further verbal educations. RD contact information left at bedside and pt encouraged to reach out. Pt reports she currently does not see an MD regularly for DM management however is working on getting an appointment scheduled with a new physician and has recently started going to [facility]. RD encouraged pt to f/u with CDEs at [facility] for additional DM education. Pt states she takes her medications per rx without issues and checks her BG levels in the morning and evening with resulting numbers in the 120s. Current A1c of 9.9% indicates average BG level of 237. Pt agrees to Stanislav smoothie BIDBL for wound healing needs. D/w RN, ONS to be sent with physician verification in EMR. Pt reports some difficulty chewing d/t missing teeth and requests chop all food. LBM 07/18. Pt agrees to power pudding with next meal to assist with bowel regularity. Pt just started on routine Colace today, previously receiving routine Miralax, and last received PRN bowel care 07/21. Will continue to follow and monitor need for further nutrition intervention. Rec: 1. Continue CHO controlled diet 2. [place] Stanislav smoothie BIDBL for wound healing needs; pending physician verification in EMR, d/w RN 3. Continue MVI for wound healing 4. Routine bowel care 5. Scaled wt this admit Addendum: 07/23/20 at [address] Amended: Links added.
[2020-07-23] MEDS: HYDROcodone/acetaminophen 10/325mg tab PO PRN (15:30)
[2020-07-23 18:00] VITALS: BP 161/61
--- NOTE | 2020-07-23 18:02 | NUR ---
patient turned q2hrly medicated with Weskan as per EMAR. Dose increase received from DR mccain for Weskan as pain7-8/10 on norco 5 without much relief. Dressing changed to sacrum and left heel and calf. Patient has good appetite. Blood sugars stable. All cares given .
--- NOTE | 2020-07-23 18:10 | NUR ---
Patient in room ORTHO 4020. I have received report from HERNAN Fraga and had the opportunity to ask questions and assume patient care.
--- NOTE | 2020-07-23 18:34 | NUR ---
Problems reprioritized. Patient report given, questions answered & plan of care reviewed with Minal BECERRA.
[2020-07-23] MEDS: nortriptyline 25mg capsule PO SCH (20:01)
[2020-07-23] MEDS: docusate sod 100mg capsule PO PRN (20:01)
[2020-07-23] MEDS: gabapentin 300mg capsule PO SCH (20:07)
[2020-07-23] MEDS: docusate sod 250mg capsule PO SCH (20:08)
[2020-07-23 22:00] VITALS: BP 145/64
[2020-07-24] MEDS: normal saline 1000ml 1,000 ML IV SCH ×3 (02:46→19:44)
[2020-07-24 06:00] VITALS: BP 151/60
--- NOTE | 2020-07-24 06:23 | NUR ---
Problems reprioritized. Patient report given, questions answered & plan of care reviewed with HERNAN Austin.
[2020-07-24 06:47] LABS: BASOPHILS # (AUTO) 0.1 X10'3 (0-0.2); BASOPHILS % (AUTO) 1.1 % (0-1); EOSINOPHILS # (AUTO) 0.2 X10'3 (0-0.9); EOSINOPHILS % (AUTO) 2.5 % (0-6); HEMOGLOBIN 7.6 g/dl (12.0-16.0); LYMPHOCYTES # (AUTO) 1.1 X10'3 (1.1-4.8); LYMPHOCYTES % (AUTO) 14.1 % (21-51); MEAN CORPUSCULAR HEMOGLOBIN 27.4 PG (27.0-31.0); MEAN CORPUSCULAR HGB CONC 32.9 g/dL (33.0-36.5); MEAN CORPUSCULAR VOLUME 83.5 FL (78-98); MEAN PLATELET VOLUME 6.2 FL (7.4-10.4); MONOCYTES # (AUTO) 0.6 X10'3 (0-0.9); MONOCYTES % (AUTO) 8.1 % (2-12); NEUTROPHILS # (AUTO) 5.8 X10'3 (1.8-7.7); NEUTROPHILS % (AUTO) 74.2 % (42-75); PLATELET COUNT 311 X10'3 (140-440); RED BLOOD COUNT 2.76 X10'6 (4.20-5.60); RED CELL DISTRIBUTION WIDTH 15.5 % (11.5-14.5); WHITE BLOOD COUNT 7.8 X10'3 (4.5-11.0)
[2020-07-24 07:00] LABS: ALBUMIN 2.1 G/DL (3.4-5.0); ANION GAP 12 (8-16); BLOOD UREA NITROGEN 46 MG/DL (7-18); BUN/CREATININE RATIO 23.4 (6.6-38.0); CHLORIDE 107 MMOL/L (99-107); CREATININE 1.97 MG/DL (0.40-0.90); GLUCOSE 90 MG/DL (70-104); POTASSIUM 3.7 MMOL/L (3.5-5.1); SODIUM 141 MMOL/L (135-145); TOTAL CARBON DIOXIDE 21.8 MMOL/L (24-32); eGFR 25 ML/MIN
[2020-07-24] MEDS: JUVEN Smoothie Arginine/Glut./Ca2+Bmb (Juven 19.3pkt) 240ml cup PO SCH ×2 (07:30→13:07)
[2020-07-24] MEDS: cefepime 1GM in D5W 50mL 50 ML IV SCH (07:45)
[2020-07-24] MEDS: enoxaparin 30mg/0.3ml syringe SQ SCH ×2 (07:48→19:45)
[2020-07-24] MEDS: atorvastatin 20mg tablet PO SCH (07:49)
[2020-07-24] MEDS: lactobacillus rhamnosus 10,000 MMU CELLS/CAPSULE PO SCH ×2 (07:49→19:46)
[2020-07-24] MEDS: pantoprazole 40mg Tablet.DR PO SCH (07:49)
[2020-07-24] MEDS: levoTHYROXINE 100mcg tablet PO SCH (07:50)
[2020-07-24] MEDS: aspirin 325mg tablet PO SCH (07:50)
[2020-07-24] MEDS: metoprolol tartrate 50mg tablet PO SCH ×2 (07:50→19:46)
[2020-07-24] MEDS: multivitamins, therapeutics tablet PO SCH (07:50)
[2020-07-24] MEDS: potassium chloride 10mEq ER tablet PO SCH (07:50)
[2020-07-24] MEDS: amLODIPine 5mg tablet PO SCH (07:51)
[2020-07-24] MEDS: metroNIDAZOLE-Flagyl 500mg/NS 100 ML IV SCH ×2 (08:34→16:29)
[2020-07-24] MEDS: insulin glargine (Lantus) pen - multi-dose SQ SCH ×2 (08:37→19:51)
[2020-07-24 10:00] VITALS: BP 148/54
--- NOTE | 2020-07-24 17:15 | NUR ---
Patient states she is concerned and doesn't know what to do about her children. She states they are fighting over who is going to be taking care of her. Patient advised that the social media intern will be visiting with her before any decisions are made and she is not ready to go home at this time.
[2020-07-24 18:00] VITALS: BP 164/62
[2020-07-24] MEDS: clindamycin 300mg/D5W 50mL 50 ML IV SCH (19:44)
[2020-07-24] MEDS: nortriptyline 25mg capsule PO SCH (19:45)
[2020-07-24] MEDS: gabapentin 300mg capsule PO SCH (19:45)
[2020-07-24] MEDS: docusate sod 250mg capsule PO SCH (19:46)
[2020-07-24] MEDS ORDERED: ciprofloxacin lact 400MG/200ML 200 ML IV SCH (20:00)
[2020-07-24] MEDS: HYDROcodone/acetaminophen 10/325mg tab PO PRN (21:47)
[2020-07-24 22:00] VITALS: BP 171/51
[2020-07-25] VITALS (9 sets, daily range): BP systolic 146–166; BP diastolic 54–67
[2020-07-25] MEDS: clindamycin 300mg/D5W 50mL 50 ML IV SCH (01:54)
[2020-07-25 06:01] LABS: BASOPHILS # (AUTO) 0.1 X10'3 (0-0.2); BASOPHILS % (AUTO) 0.8 % (0-1); EOSINOPHILS # (AUTO) 0.2 X10'3 (0-0.9); EOSINOPHILS % (AUTO) 2.6 % (0-6); HEMOGLOBIN 7.3 g/dl (12.0-16.0); LYMPHOCYTES # (AUTO) 1.3 X10'3 (1.1-4.8); LYMPHOCYTES % (AUTO) 18.2 % (21-51); MEAN CORPUSCULAR HEMOGLOBIN 27.9 PG (27.0-31.0); MEAN CORPUSCULAR HGB CONC 33.4 g/dL (33.0-36.5); MEAN CORPUSCULAR VOLUME 83.3 FL (78-98); MEAN PLATELET VOLUME 6.2 FL (7.4-10.4); MONOCYTES # (AUTO) 0.6 X10'3 (0-0.9); MONOCYTES % (AUTO) 8.9 % (2-12); NEUTROPHILS # (AUTO) 5.1 X10'3 (1.8-7.7); NEUTROPHILS % (AUTO) 69.5 % (42-75); PLATELET COUNT 308 X10'3 (140-440); RED BLOOD COUNT 2.61 X10'6 (4.20-5.60); RED CELL DISTRIBUTION WIDTH 15.1 % (11.5-14.5); WHITE BLOOD COUNT 7.3 X10'3 (4.5-11.0)
[2020-07-25 06:08] LABS: HEMATOCRIT 21.7 % (35.0-45.0)
--- NOTE | 2020-07-25 06:10 | NUR ---
report given to michelle Austin.
[2020-07-25 06:18] LABS: ANION GAP 13 (8-16); BLOOD UREA NITROGEN 42 MG/DL (7-18); BUN/CREATININE RATIO 22.7 (6.6-38.0); CALCIUM 7.9 MG/DL (8.5-10.1); CHLORIDE 106 MMOL/L (99-107); CREATININE 1.85 MG/DL (0.40-0.90); GLUCOSE 82 MG/DL (70-104); POTASSIUM 3.7 MMOL/L (3.5-5.1); SODIUM 140 MMOL/L (135-145); TOTAL CARBON DIOXIDE 20.7 MMOL/L (24-32); eGFR 27 ML/MIN
[2020-07-25] MEDS: JUVEN Smoothie Arginine/Glut./Ca2+Bmb (Juven 19.3pkt) 240ml cup PO SCH ×2 (07:30→12:30)
[2020-07-25] MEDS: aspirin 325mg tablet PO SCH (07:38)
[2020-07-25] MEDS: lactobacillus rhamnosus 10,000 MMU CELLS/CAPSULE PO SCH ×2 (07:38→19:45)
[2020-07-25] MEDS: atorvastatin 20mg tablet PO SCH (07:39)
[2020-07-25] MEDS: potassium chloride 10mEq ER tablet PO SCH (07:39)
[2020-07-25] MEDS: metoprolol tartrate 50mg tablet PO SCH ×2 (07:40→19:46)
[2020-07-25] MEDS: amLODIPine 5mg tablet PO SCH (07:41)
[2020-07-25] MEDS: pantoprazole 40mg Tablet.DR PO SCH (07:42)
[2020-07-25] MEDS: levoTHYROXINE 100mcg tablet PO SCH (07:43)
[2020-07-25] MEDS: multivitamins, therapeutics tablet PO SCH (07:43)
[2020-07-25] MEDS: HYDROcodone/acetaminophen 10/325mg tab PO PRN ×2 (07:45→14:05)
[2020-07-25] MEDS: insulin glargine (Lantus) pen - multi-dose SQ SCH ×2 (08:00→18:49)
[2020-07-25] MEDS: enoxaparin 30mg/0.3ml syringe SQ SCH ×2 (08:00→19:44)
[2020-07-25] MEDS: levoFLOXACIN 750MG TABLET PO SCH (08:37)
[2020-07-25] MEDS: clindamycin 600mg/D5W 50ml 50 ML IV SCH ×2 (08:37→19:43)
--- NOTE | 2020-07-25 11:45 | NUR ---
Patient in room ORTHO 4020. I have received report from HERNAN Brown and had the opportunity to ask questions and assume patient care.
[2020-07-25] MEDS ORDERED: LIDOcaine 1%/PF 5ML 10 MG/ML VIAL ONE (14:46)
[2020-07-25] MEDS ORDERED: heparin 1,000 UNITS/NS 500ml 500 ML ONE (14:46)
--- NOTE | 2020-07-25 15:25 | NUR ---
Patient came to [facility] directly following her CT scan next door.
[2020-07-25] MEDS ORDERED: iohexol 300mg/ml 100ml inj. ONE (15:32)
[2020-07-25] MEDS ORDERED: midazolam 1 mg/ML 2ml injection ONE ×2 (15:48→16:07)
[2020-07-25] MEDS ORDERED: fentaNYL/PF 50MCG/1 ML 2ML syringe ONE ×2 (15:48→16:07)
--- NOTE | 2020-07-25 16:40 | NUR ---
acting as clinical nursing associate, i reviewed student nurse documentation
[2020-07-25] MEDS ORDERED: naloxone 0.4 mg/ml inj ONE (16:45)
[2020-07-25] MEDS: ondansetron/PF 4mg/2ml inj IV PRN (18:09)
--- NOTE | 2020-07-25 18:25 | NUR ---
patient brought to floor by angio, minimal report from the IR crew, no report from the floor nurse obtained, patient stable. R groin line transduced good arterial wave form. doppler pulse to R leg left leg wrapped
--- NOTE | 2020-07-25 18:27 | NUR ---
Patient transferred to CICU room 2009 with vital signs stable. BP 168/80, HR 65, 100% O2 on 5L nasal cannula. IR procedure Report given via phone to Suzan RN prior to transfer from [facility]. Primary RN and assistant press operator at bedside in CICU.
[2020-07-25 18:31] LABS: ABG BASE EXCESS -5.1 mmol/L (-2.0-2.0); ABG HCO3 20.2 mmol/L (22.0-26.0); ABG OXYGEN SATURATION 97.9 % (94-97); ABG PO2 (T) 108.7 mmHg (75.0-100.0); FCOHb 0.3 % (0.0-3.9); FMetHb 0.4 % (0.0-1.5); FO2Hb 97.2 % (94-97); PATIENT TEMPERATURE 36.3; TOTAL HEMOGLOBIN 8.4 G/dl (12.0-16.0)
--- NOTE | 2020-07-25 18:50 | NUR ---
Problems reprioritized. Patient report given, questions answered & plan of care reviewed with Kori BECERRA.
[2020-07-25] MEDS: mineral oil/petrolatum, white cream 113gm jar TP SCH (19:44)
[2020-07-25] MEDS: nortriptyline 25mg capsule PO SCH (19:45)
[2020-07-25] MEDS: gabapentin 300mg capsule PO SCH (19:45)
[2020-07-25] MEDS: docusate sod 250mg capsule PO SCH (19:45)
[2020-07-26] VITALS (23 sets, daily range): BP systolic 143–174; BP diastolic 48–93
[2020-07-26] MEDS: clindamycin 600mg/D5W 50ml 50 ML IV SCH ×4 (01:18→22:42)
[2020-07-26 04:04] LABS: BASOPHILS # (AUTO) 0.1 X10'3 (0-0.2); BASOPHILS % (AUTO) 0.8 % (0-1); EOSINOPHILS # (AUTO) 0.1 X10'3 (0-0.9); EOSINOPHILS % (AUTO) 1.1 % (0-6); HEMATOCRIT 22.8 % (35.0-45.0); HEMOGLOBIN 7.4 g/dl (12.0-16.0); LYMPHOCYTES # (AUTO) 0.7 X10'3 (1.1-4.8); LYMPHOCYTES % (AUTO) 7.9 % (21-51); MEAN CORPUSCULAR HEMOGLOBIN 27.2 PG (27.0-31.0); MEAN CORPUSCULAR HGB CONC 32.5 g/dL (33.0-36.5); MEAN CORPUSCULAR VOLUME 83.5 FL (78-98); MEAN PLATELET VOLUME 6.3 FL (7.4-10.4); MONOCYTES # (AUTO) 0.6 X10'3 (0-0.9); MONOCYTES % (AUTO) 6.5 % (2-12); NEUTROPHILS # (AUTO) 7.7 X10'3 (1.8-7.7); NEUTROPHILS % (AUTO) 83.7 % (42-75); PLATELET COUNT 319 X10'3 (140-440); RED BLOOD COUNT 2.73 X10'6 (4.20-5.60); RED CELL DISTRIBUTION WIDTH 15.5 % (11.5-14.5); WHITE BLOOD COUNT 9.2 X10'3 (4.5-11.0)
[2020-07-26 04:17] LABS: ALANINE AMINOTRANSFERASE 21 U/L (12-78); ALBUMIN/GLOBULIN RATIO 0.4 (1.1-1.5); ALKALINE PHOSPHATASE 99 IU/L (46-116); ANION GAP 12 (8-16); ASPARTATE AMINO TRANSFERASE 31 U/L (10-37); BILIRUBIN,TOTAL 0.2 MG/DL (0.1-1.0); BLOOD UREA NITROGEN 40 MG/DL (7-18); BUN/CREATININE RATIO 23.1 (6.6-38.0); CHLORIDE 107 MMOL/L (99-107); CREATININE 1.73 MG/DL (0.40-0.90); GLUCOSE 107 MG/DL (70-104); MAGNESIUM 1.7 MG/DL (1.5-2.4); POTASSIUM 4.1 MMOL/L (3.5-5.1); SODIUM 139 MMOL/L (135-145); TOTAL PROTEIN 6.5 G/DL (6.4-8.2); eGFR 29 ML/MIN
[2020-07-26] MEDS: JUVEN Smoothie Arginine/Glut./Ca2+Bmb (Juven 19.3pkt) 240ml cup PO SCH ×3 (07:30→15:53)
[2020-07-26] MEDS: insulin glargine (Lantus) pen - multi-dose SQ SCH ×2 (08:00→20:00)
[2020-07-26] MEDS: atorvastatin 20mg tablet PO SCH (08:40)
[2020-07-26] MEDS: aspirin 325mg tablet PO SCH (08:40)
[2020-07-26] MEDS: levoTHYROXINE 100mcg tablet PO SCH (08:40)
[2020-07-26] MEDS: pantoprazole 40mg Tablet.DR PO SCH (08:40)
[2020-07-26] MEDS: multivitamins, therapeutics tablet PO SCH (08:41)
[2020-07-26] MEDS: lactobacillus rhamnosus 10,000 MMU CELLS/CAPSULE PO SCH ×2 (08:41→20:11)
[2020-07-26] MEDS: metoprolol tartrate 50mg tablet PO SCH ×2 (08:42→20:11)
[2020-07-26] MEDS: HYDROcodone/acetaminophen 10/325mg tab PO PRN (08:42)
[2020-07-26] MEDS: amLODIPine 5mg tablet PO SCH (08:42)
[2020-07-26] MEDS: potassium chloride 10mEq ER tablet PO SCH (08:43)
[2020-07-26] MEDS: enoxaparin 30mg/0.3ml syringe SQ SCH ×2 (08:44→20:09)
[2020-07-26] MEDS: mineral oil/petrolatum, white cream 113gm jar TP SCH ×2 (08:44→20:12)
[2020-07-26] MEDS: morphine 2 MG/ML inj. syringe IV PRN ×3 (10:54→20:10)
[2020-07-26 17:08] LABS: PARTIAL THROMBOPLASTIN TIME 35 SECONDS (22-32)
[2020-07-26] MEDS: gabapentin 300mg capsule PO SCH (20:11)
[2020-07-26] MEDS: nortriptyline 25mg capsule PO SCH (20:11)
[2020-07-26] MEDS: docusate sod 250mg capsule PO SCH (20:12)
--- NOTE | 2020-07-26 21:13 | NUR ---
Problems reprioritized. Patient report given, questions answered & plan of care reviewed with Gerry BECERRA.
--- NOTE | 2020-07-26 21:14 | NUR ---
Problems reprioritized. Patient report given, questions answered & plan of care reviewed with Gerry BECERRA.
[2020-07-26] MEDS ORDERED: nitroGLYCERIN 0.4mg SUBLingual tab SL PRN (21:55)
[2020-07-26] MEDS ORDERED: aminophylline 250mg/10ml inj. IV PRN (21:55)
[2020-07-26] MEDS ORDERED: regadenoson 0.4mg/5ml syringe IV PRN (21:55)
[2020-07-26] MEDS ORDERED: metoprolol tartrate 1mg/ml inj IV PRN (21:55)
[2020-07-27] VITALS (36 sets, daily range): BP systolic 144–192; BP diastolic 48–87
[2020-07-27 03:00] LABS: BASOPHILS # (AUTO) 0.1 X10'3 (0-0.2); EOSINOPHILS # (AUTO) 0.2 X10'3 (0-0.9); EOSINOPHILS % (AUTO) 3.4 % (0-6); LYMPHOCYTES # (AUTO) 1.3 X10'3 (1.1-4.8); LYMPHOCYTES % (AUTO) 17.6 % (21-51); MEAN CORPUSCULAR HEMOGLOBIN 27.6 PG (27.0-31.0); MEAN CORPUSCULAR HGB CONC 33.1 g/dL (33.0-36.5); MEAN CORPUSCULAR VOLUME 83.4 FL (78-98); MEAN PLATELET VOLUME 6.2 FL (7.4-10.4); MONOCYTES # (AUTO) 0.7 X10'3 (0-0.9); MONOCYTES % (AUTO) 9.3 % (2-12); NEUTROPHILS % (AUTO) 68.7 % (42-75); PLATELET COUNT 303 X10'3 (140-440); RED BLOOD COUNT 2.41 X10'6 (4.20-5.60); RED CELL DISTRIBUTION WIDTH 15.4 % (11.5-14.5); WHITE BLOOD COUNT 7.3 X10'3 (4.5-11.0)
[2020-07-27 03:05] LABS: HEMATOCRIT 20.1 % (35.0-45.0); HEMOGLOBIN 6.6 g/dl (12.0-16.0)
[2020-07-27 03:06] LABS: ALANINE AMINOTRANSFERASE 25 U/L (12-78); ALBUMIN/GLOBULIN RATIO 0.5 (1.1-1.5); ALKALINE PHOSPHATASE 111 IU/L (46-116); ANION GAP 9 (8-16); ASPARTATE AMINO TRANSFERASE 34 U/L (10-37); BILIRUBIN,TOTAL 0.2 MG/DL (0.1-1.0); BLOOD UREA NITROGEN 38 MG/DL (7-18); BUN/CREATININE RATIO 21.7 (6.6-38.0); CHLORIDE 107 MMOL/L (99-107); CREATININE 1.75 MG/DL (0.40-0.90); GLUCOSE 77 MG/DL (70-104); MAGNESIUM 1.7 MG/DL (1.5-2.4); POTASSIUM 4.1 MMOL/L (3.5-5.1); SODIUM 139 MMOL/L (135-145); TOTAL CARBON DIOXIDE 22.7 MMOL/L (24-32); TOTAL PROTEIN 6.1 G/DL (6.4-8.2); eGFR 29 ML/MIN
[2020-07-27] MEDS: normal saline 1000ml 1,000 ML IV SCH ×2 (05:29→19:53)
[2020-07-27 07:10] LABS: BASOPHILS # (AUTO) 0.1 X10'3 (0-0.2); EOSINOPHILS # (AUTO) 0.3 X10'3 (0-0.9); EOSINOPHILS % (AUTO) 3.5 % (0-6); LYMPHOCYTES # (AUTO) 1.1 X10'3 (1.1-4.8); LYMPHOCYTES % (AUTO) 14.8 % (21-51); MEAN CORPUSCULAR HEMOGLOBIN 28.3 PG (27.0-31.0); MEAN CORPUSCULAR HGB CONC 33.9 g/dL (33.0-36.5); MEAN CORPUSCULAR VOLUME 83.4 FL (78-98); MEAN PLATELET VOLUME 6.2 FL (7.4-10.4); MONOCYTES # (AUTO) 0.7 X10'3 (0-0.9); MONOCYTES % (AUTO) 9.6 % (2-12); NEUTROPHILS # (AUTO) 5.4 X10'3 (1.8-7.7); NEUTROPHILS % (AUTO) 71.1 % (42-75); PRE OP PLATELET COUNT 313 X10'3 (140-440); RED BLOOD COUNT 2.88 X10'6 (4.20-5.60); RED CELL DISTRIBUTION WIDTH 15.6 % (11.5-14.5)
[2020-07-27 07:17] LABS: PRE OP HEMOGLOBIN 8.2 g/dL (12.0-16.0)
[2020-07-27] MEDS: multivitamins, therapeutics tablet PO SCH (07:26)
[2020-07-27] MEDS: metoprolol tartrate 50mg tablet PO SCH ×2 (07:27→19:50)
[2020-07-27] MEDS: levoTHYROXINE 100mcg tablet PO SCH (07:28)
[2020-07-27] MEDS: atorvastatin 20mg tablet PO SCH (07:28)
[2020-07-27] MEDS: lactobacillus rhamnosus 10,000 MMU CELLS/CAPSULE PO SCH ×2 (07:28→19:49)
[2020-07-27] MEDS: pantoprazole 40mg Tablet.DR PO SCH (07:29)
[2020-07-27] MEDS: HYDROcodone/acetaminophen 10/325mg tab PO PRN ×2 (07:29→14:22)
[2020-07-27] MEDS: potassium chloride 10mEq ER tablet PO SCH (07:29)
[2020-07-27] MEDS: amLODIPine 5mg tablet PO SCH (07:30)
[2020-07-27] MEDS: clindamycin 600mg/D5W 50ml 50 ML IV SCH ×3 (07:31→23:49)
[2020-07-27] MEDS: enoxaparin 30mg/0.3ml syringe SQ SCH ×2 (08:30→19:49)
[2020-07-27] MEDS: insulin glargine (Lantus) pen - multi-dose SQ SCH ×2 (08:30→21:00)
[2020-07-27] MEDS: aspirin 325mg tablet PO SCH (08:30)
[2020-07-27] MEDS: levoFLOXACIN 750MG TABLET PO SCH (09:40)
[2020-07-27] MEDS: mineral oil/petrolatum, white cream 113gm jar TP SCH ×2 (09:46→19:54)
--- NOTE | 2020-07-27 10:28 | NUR ---
Pt to [facility] via [place] Reported off to suman BECERRA Pt on monitor.
[2020-07-27 10:54] LABS: BASOPHILS # (AUTO) 0.1 X10'3 (0-0.2); BASOPHILS % (AUTO) 0.9 % (0-1); EOSINOPHILS # (AUTO) 0.3 X10'3 (0-0.9); EOSINOPHILS % (AUTO) 3.1 % (0-6); HEMATOCRIT 28.8 % (35.0-45.0); HEMOGLOBIN 9.6 g/dl (12.0-16.0); LYMPHOCYTES # (AUTO) 0.9 X10'3 (1.1-4.8); LYMPHOCYTES % (AUTO) 10.5 % (21-51); MEAN CORPUSCULAR HGB CONC 33.4 g/dL (33.0-36.5); MEAN CORPUSCULAR VOLUME 83.6 FL (78-98); MEAN PLATELET VOLUME 6.4 FL (7.4-10.4); MONOCYTES # (AUTO) 0.8 X10'3 (0-0.9); MONOCYTES % (AUTO) 9.5 % (2-12); NEUTROPHILS # (AUTO) 6.6 X10'3 (1.8-7.7); PLATELET COUNT 313 X10'3 (140-440); RED BLOOD COUNT 3.44 X10'6 (4.20-5.60); RED CELL DISTRIBUTION WIDTH 15.3 % (11.5-14.5); WHITE BLOOD COUNT 8.6 X10'3 (4.5-11.0)
--- NOTE | 2020-07-27 12:20 | NUR ---
Reassessment: Pt going to OR for endarterectomy of the left lower extremity today, per [facility] note. Pt documented as NPO in preparation for the stress test this AM prior to possible endarterectomy, per . PO intake prior to NPO status avg ~75% at meals on a CHO controlled diet, and 25-50% of Stanislav smoothie BIDBL. Combined PO intake meeting minimum estimated kcals and partially meeting protein needs. Last BM 07/26 documented as moderate in size and diarrhea.Will continue to follow for further nutrition intervention. Rec: 1. Continue CHO controlled diet 2. [place] Stanislav smoothie BIDBL for wound healing needs 3. Continue MVI for wound healing 4. Routine bowel care 5. Scaled wt this admit Addendum: 07/27/20 at [address] Amended: Links added. Addendum: 07/27/20 at [address] RD agrees w/ above research program internship note.
[2020-07-27] MEDS: JUVEN Smoothie Arginine/Glut./Ca2+Bmb (Juven 19.3pkt) 240ml cup PO SCH (12:30)
--- NOTE | 2020-07-27 12:48 | NUR ---
Patient arrived back from [facility], assisted to bed without incident. Will continue to monitor.
[2020-07-27] MEDS ORDERED: dextrose ORAL solution 15 GM/59 ML bottle PO PRN ×2 (13:40)
[2020-07-27] MEDS ORDERED: dextrose 50%-water 50ml dispensing syringe IV PRN ×2 (13:40)
[2020-07-27] MEDS ORDERED: sodium chloride inj. 154 MEQ in Dextrose 10%-water IV solution 961.5 ML IV SCH ×2 (13:40→13:45)
[2020-07-27] MEDS ORDERED: glucagon, human recombinant 1mg kit SUBCUT PRN (13:40)
[2020-07-27] MEDS ORDERED: insulin Lispro (HumaLOG) vial - multi-dose SQ SCH (13:40)
[2020-07-27] MEDS: Dextrose 10%-water IV solution 1,000 ML IV SCH (14:23)
--- NOTE | 2020-07-27 16:46 | NUR ---
Spoke with Dr. Anderson via telephone, per MD patient will not be having surgery today 07/27/20. Order to give patient diet and keep NPO aftermidnight. irrigation manager, Suzan notified.
--- NOTE | 2020-07-27 18:11 | NUR ---
Right femoral arterial Sheath dc'd canula intact, manual pressure held for 20 min. good hemostasis attained, right foot dorsalis pedis dopplers easilly, reviewed with oncoming shift.
[2020-07-27] MEDS: nystatin 500,000 unit/5ML UD oral suspension PO SCH ×2 (19:48→23:48)
[2020-07-27] MEDS: gabapentin 300mg capsule PO SCH (19:49)
[2020-07-27] MEDS: docusate sod 100mg capsule PO PRN (19:50)
[2020-07-27] MEDS: docusate sod 250mg capsule PO SCH (19:52)
[2020-07-27] MEDS: nortriptyline 25mg capsule PO SCH (19:58)
[2020-07-28] VITALS (18 sets, daily range): BP systolic 118–171; BP diastolic 40–82
[2020-07-28] MEDS: HYDROcodone/acetaminophen 10/325mg tab PO PRN ×3 (00:25→20:04)
[2020-07-28 04:56] LABS: BASOPHILS # (AUTO) 0.1 X10'3 (0-0.2); BASOPHILS % (AUTO) 0.8 % (0-1); EOSINOPHILS # (AUTO) 0.2 X10'3 (0-0.9); EOSINOPHILS % (AUTO) 2.8 % (0-6); HEMOGLOBIN 8.6 g/dl (12.0-16.0); LYMPHOCYTES # (AUTO) 1.1 X10'3 (1.1-4.8); LYMPHOCYTES % (AUTO) 13.9 % (21-51); MEAN CORPUSCULAR HEMOGLOBIN 27.9 PG (27.0-31.0); MEAN CORPUSCULAR HGB CONC 33.1 g/dL (33.0-36.5); MEAN CORPUSCULAR VOLUME 84.2 FL (78-98); MEAN PLATELET VOLUME 6.2 FL (7.4-10.4); MONOCYTES # (AUTO) 0.7 X10'3 (0-0.9); MONOCYTES % (AUTO) 8.7 % (2-12); NEUTROPHILS # (AUTO) 5.7 X10'3 (1.8-7.7); NEUTROPHILS % (AUTO) 73.8 % (42-75); PLATELET COUNT 281 X10'3 (140-440); RED BLOOD COUNT 3.09 X10'6 (4.20-5.60); RED CELL DISTRIBUTION WIDTH 15.3 % (11.5-14.5); WHITE BLOOD COUNT 7.7 X10'3 (4.5-11.0)
[2020-07-28 05:08] LABS: ALANINE AMINOTRANSFERASE 26 U/L (12-78); ALBUMIN/GLOBULIN RATIO 0.5 (1.1-1.5); ALKALINE PHOSPHATASE 111 IU/L (46-116); ANION GAP 10 (8-16); ASPARTATE AMINO TRANSFERASE 26 U/L (10-37); BILIRUBIN,TOTAL 0.2 MG/DL (0.1-1.0); BLOOD UREA NITROGEN 33 MG/DL (7-18); BUN/CREATININE RATIO 19.3 (6.6-38.0); CALCIUM 7.8 MG/DL (8.5-10.1); CHLORIDE 105 MMOL/L (99-107); CREATININE 1.71 MG/DL (0.40-0.90); GLUCOSE 118 MG/DL (70-104); MAGNESIUM 1.5 MG/DL (1.5-2.4); SODIUM 137 MMOL/L (135-145); TOTAL CARBON DIOXIDE 21.8 MMOL/L (24-32); TOTAL PROTEIN 6.1 G/DL (6.4-8.2); eGFR 29 ML/MIN
[2020-07-28] MEDS: JUVEN Smoothie Arginine/Glut./Ca2+Bmb (Juven 19.3pkt) 240ml cup PO SCH ×2 (07:30→12:30)
[2020-07-28] MEDS: enoxaparin 30mg/0.3ml syringe SQ SCH ×2 (08:00→20:05)
[2020-07-28] MEDS: aspirin 325mg tablet PO SCH (08:00)
[2020-07-28] MEDS: nystatin 500,000 unit/5ML UD oral suspension PO SCH ×3 (08:40→20:06)
[2020-07-28] MEDS: clindamycin 600mg/D5W 50ml 50 ML IV SCH ×3 (08:40→23:48)
[2020-07-28] MEDS: potassium chloride 10mEq ER tablet PO SCH (08:40)
[2020-07-28] MEDS: multivitamins, therapeutics tablet PO SCH (08:41)
[2020-07-28] MEDS: lactobacillus rhamnosus 10,000 MMU CELLS/CAPSULE PO SCH ×2 (08:41→20:02)
[2020-07-28] MEDS: pantoprazole 40mg Tablet.DR PO SCH (08:41)
[2020-07-28] MEDS: levoTHYROXINE 100mcg tablet PO SCH (08:41)
[2020-07-28] MEDS: atorvastatin 20mg tablet PO SCH (08:41)
[2020-07-28] MEDS: metoprolol tartrate 50mg tablet PO SCH ×2 (08:43→20:04)
[2020-07-28] MEDS: mineral oil/petrolatum, white cream 113gm jar TP SCH ×2 (08:43→21:57)
[2020-07-28] MEDS: amLODIPine 5mg tablet PO SCH (08:43)
[2020-07-28] MEDS: Dextrose 10%-water IV solution 1,000 ML IV SCH (08:54)
[2020-07-28] MEDS: normal saline 1000ml 1,000 ML IV SCH (15:51)
--- NOTE | 2020-07-28 17:05 | NUR ---
Patient in room CICU 2009. I have received report from Idania BECERRA from ICU and had the opportunity to ask questions and assume patient care. Nurse has done all treatments. All questions were answered.
--- NOTE | 2020-07-28 17:25 | NUR ---
Patient transferred to room 355. Patient transported off unit via bed, transferred to new bed without incident. Edna RN at bedside. All questions and concerns addressed.
--- NOTE | 2020-07-28 17:58 | NUR ---
Patient arrived to unit in room 352. Patient on isolation precaution due to bacteria in wounds. Pt NPO at midnight for surgery in am. Patient was orientated to room and supplies in room and is aware of surgery in am. Patients IV fluids were hung up and continued. NO SCDS due to bilateral leg wounds, ACHS/Q6 checks for NPO status and then eating. NS @60, D10 @50. Patient was put into bed and comfortable to s/s of distress.
--- NOTE | 2020-07-28 18:26 | NUR ---
Patient in room BLANK 352. I have received report from HERNAN Haywood and had the opportunity to ask questions and assume patient care.
[2020-07-28] MEDS ORDERED: docusate sodium 100mg/10ml UD cup PO SCH (18:29)
--- NOTE | 2020-07-28 18:41 | NUR ---
Problems reprioritized. Patient report given, questions answered & plan of care reviewed with Monica BECERRA.
[2020-07-28] MEDS: insulin glargine (Lantus) pen - multi-dose SQ SCH (21:00)
[2020-07-28] MEDS: nortriptyline 25mg capsule PO SCH (21:51)
[2020-07-28] MEDS: gabapentin 300mg capsule PO SCH (21:51)
[2020-07-28] MEDS: morphine 2 MG/ML inj. syringe IV PRN (21:52)
[2020-07-29] VITALS (22 sets, daily range): BP systolic 143–170; BP diastolic 48–74
--- NOTE | 2020-07-29 | NUR ---
Student documentation: I have reviewed all interventions, assessments performed and documented by Jenna Glover. Student Medication Administration: For this medication-pass time frame, all medication were reviewed, dispensed, administered and documented per hospital policy by Jenna Glover.
[2020-07-29] MEDS ORDERED: HYDROmorphone inj. 0.5 MG/0.5 ML DISP.SYRIN IV ONE (01:25)
[2020-07-29] MEDS: nystatin 500,000 unit/5ML UD oral suspension PO SCH ×4 (01:50→19:52)
[2020-07-29] MEDS: Dextrose 10%-water IV solution 1,000 ML IV SCH (04:35)
--- NOTE | 2020-07-29 06:24 | NUR ---
Patient in room BLANK 352. I have received report from HERNAN Anderson and had the opportunity to ask questions and assume patient care.
--- NOTE | 2020-07-29 06:53 | NUR ---
Problems reprioritized. Patient report given, questions answered & plan of care reviewed with HERNAN Gillespie.
[2020-07-29 06:57] LABS: BASOPHILS # (AUTO) 0.1 X10'3 (0-0.2); BASOPHILS % (AUTO) 0.8 % (0-1); EOSINOPHILS # (AUTO) 0.2 X10'3 (0-0.9); EOSINOPHILS % (AUTO) 3.5 % (0-6); HEMATOCRIT 27.1 % (35.0-45.0); LYMPHOCYTES # (AUTO) 1.1 X10'3 (1.1-4.8); LYMPHOCYTES % (AUTO) 15.1 % (21-51); MEAN CORPUSCULAR HGB CONC 33.4 g/dL (33.0-36.5); MEAN CORPUSCULAR VOLUME 83.8 FL (78-98); MEAN PLATELET VOLUME 6.2 FL (7.4-10.4); MONOCYTES # (AUTO) 0.7 X10'3 (0-0.9); MONOCYTES % (AUTO) 9.6 % (2-12); PLATELET COUNT 290 X10'3 (140-440); RED BLOOD COUNT 3.23 X10'6 (4.20-5.60)
[2020-07-29 07:02] LABS: PARTIAL THROMBOPLASTIN TIME 36 SECONDS (22-32)
[2020-07-29] MEDS: potassium chloride 10mEq ER tablet PO SCH (07:13)
[2020-07-29] MEDS: levoFLOXACIN 750MG TABLET PO SCH (07:13)
[2020-07-29] MEDS: clindamycin 600mg/D5W 50ml 50 ML IV SCH ×2 (07:13→15:20)
[2020-07-29] MEDS: multivitamins, therapeutics tablet PO SCH (07:13)
[2020-07-29] MEDS: metoprolol tartrate 50mg tablet PO SCH ×2 (07:14→19:52)
[2020-07-29] MEDS: atorvastatin 20mg tablet PO SCH (07:14)
[2020-07-29] MEDS: lactobacillus rhamnosus 10,000 MMU CELLS/CAPSULE PO SCH ×2 (07:14→19:52)
[2020-07-29] MEDS: amLODIPine 5mg tablet PO SCH (07:14)
[2020-07-29] MEDS: pantoprazole 40mg Tablet.DR PO SCH (07:14)
[2020-07-29] MEDS: levoTHYROXINE 100mcg tablet PO SCH (07:14)
[2020-07-29] MEDS: normal saline 1000ml 1,000 ML IV SCH (07:16)
[2020-07-29] MEDS: morphine 2 MG/ML inj. syringe IV PRN ×2 (07:16→19:56)
[2020-07-29 07:17] LABS: ALANINE AMINOTRANSFERASE 28 U/L (12-78); ALBUMIN/GLOBULIN RATIO 0.5 (1.1-1.5); ALKALINE PHOSPHATASE 103 IU/L (46-116); ANION GAP 9 (8-16); ASPARTATE AMINO TRANSFERASE 24 U/L (10-37); BILIRUBIN,TOTAL 0.2 MG/DL (0.1-1.0); BLOOD UREA NITROGEN 28 MG/DL (7-18); BUN/CREATININE RATIO 16.7 (6.6-38.0); CHLORIDE 103 MMOL/L (99-107); CREATININE 1.68 MG/DL (0.40-0.90); GLUCOSE 132 MG/DL (70-104); MAGNESIUM 1.5 MG/DL (1.5-2.4); POTASSIUM 4.2 MMOL/L (3.5-5.1); SODIUM 134 MMOL/L (135-145); TOTAL CARBON DIOXIDE 21.6 MMOL/L (24-32); TOTAL PROTEIN 6.3 G/DL (6.4-8.2); eGFR 30 ML/MIN
[2020-07-29] MEDS: mineral oil/petrolatum, white cream 113gm jar TP SCH ×2 (07:19→19:53)
[2020-07-29] MEDS: JUVEN Smoothie Arginine/Glut./Ca2+Bmb (Juven 19.3pkt) 240ml cup PO SCH ×2 (07:30→12:30)
[2020-07-29] MEDS ORDERED: LIDOcaine 1% (10mg/ml) 2ml vial ONE (07:35)
[2020-07-29] MEDS ORDERED: heparin 10,000 units/1 ML INJ ONE (07:35)
[2020-07-29] MEDS ORDERED: morphine 2 MG/ML inj. syringe IV PRN (07:35)
[2020-07-29] MEDS ORDERED: ringers solution, lacted 1,000 ML IV SCH (07:35)
[2020-07-29] MEDS ORDERED: proCHLORperazine 10 MG/2 ml inj IV PRN (07:35)
[2020-07-29] MEDS ORDERED: meperidine/PF 25mg/ml syringe IV PRN ×3 (07:35)
[2020-07-29] MEDS ORDERED: ondansetron/PF 4mg/2ml inj IV PRN (07:35)
[2020-07-29] MEDS ORDERED: morphine 4 MG/ML inj SYRINge IV PRN (07:35)
[2020-07-29] MEDS: aspirin 325mg tablet PO SCH (07:49)
[2020-07-29] MEDS: enoxaparin 30mg/0.3ml syringe SQ SCH ×2 (07:49→20:57)
--- NOTE | 2020-07-29 07:50 | NUR ---
Report called to experimental machining lab manager all questions answered.
--- NOTE | 2020-07-29 07:52 | NUR ---
Patient down to OR via bed accompanied by [employer].
[2020-07-29] MEDS ORDERED: fentaNYL/PF 50MCG/1 ML 2ML syringe ONE (08:40)
[2020-07-29] MEDS ORDERED: MIDAZolam 1 MG/ML 5ML VIAL ONE (08:41)
[2020-07-29] MEDS ORDERED: levoFLOXACIN-Levaquin 500mg/D5 100 ML IV ONE (09:39)
[2020-07-29] MEDS ORDERED: heparin 1,000unit/ml 10ml vial 10 ML ONE (10:57)
--- NOTE | 2020-07-29 11:12 | NUR ---
Received from OR via BED, accompanied by Anesthesiologist DR WHITE and report given by Anesthesiologist. PT AWAKE, DENIES PAIN, LEFT GROIN W/WOUND VAC W/S/S DRAINAGE IN TUBING, TRIPP CATHETER TO GRAVITY DRAINAGE W/YELLOW URINE IN DRAINAGE BAG. PEDAL AND TIBIAL PULSES DOPPLER. Addendum: 07/29/20 at 1153 by Arin Gaona RN Amended: Links added.
--- NOTE | 2020-07-29 12:30 | NUR ---
Notified by storage battery charger Jennie that patient will not be returning to room 353 and will be transferred to ICU . Called to give report to BACTERIOLOGY RESEARCH ASSISTANT who is Nev but was told that she had received report from recovery. Will send belongings to .
--- NOTE | 2020-07-29 12:42 | NUR ---
Report called to receiving nurse. Transferred via BED ON CM, VS REMAIN STABLE, PT W/NO COMPLAINTS. PT W/ NO Belongings, RECEIVING RN AT BEDSIDE TO RECEIVE PT. Special Issues communicated to receiving nurse. YES, NOTIFIED OF WOUND VAC SETTING CHANGES. Addendum: 07/29/20 at 1302 by Arin Gaona RN Amended: Links added.
--- NOTE | 2020-07-29 12:47 | NUR ---
Patient's x2 tablet, a cell phone and a glasses placed in a patient's belongings bag. Patient's belongings bags total x3 taken down to room 2046A.
--- NOTE | 2020-07-29 17:48 | NUR ---
Blood sugar 67, gave pt some orange and apple juice, still 68. Gave Dextrose 25ml IV. Blood sugar 134.
--- NOTE | 2020-07-29 18:19 | NUR ---
Problems reprioritized. Patient report given, questions answered & plan of care reviewed with
[2020-07-29] MEDS: HYDROcodone/acetaminophen 5mg/325mg tablet PO PRN (19:11)
--- NOTE | 2020-07-29 19:23 | NUR ---
[id number]: Patient in room ICU 2045. I have received report from Suzi BECERRA and had the opportunity to ask questions and assume patient care. Patient awakens to voice, alert, answering questions appropriately when awake. dressings clean and intact, wound vac in place, good seal. Medicated for pain level of 5 per patient statement. will continue to monitor Addendum: 07/29/20 at 1930 by Eveline Haji RN Amended: Links added.
[2020-07-29] MEDS: insulin glargine (Lantus) pen - multi-dose SQ SCH (20:54)
[2020-07-29] MEDS: gabapentin 300mg capsule PO SCH (20:56)
[2020-07-29] MEDS: nortriptyline 25mg capsule PO SCH (20:56)
[2020-07-29] MEDS: docusate sod 250mg capsule PO SCH (20:56)
[2020-07-30] VITALS (24 sets, daily range): BP systolic 94–167; BP diastolic 42–88
[2020-07-30] MEDS: clindamycin 600mg/D5W 50ml 50 ML IV SCH ×3 (00:34→15:06)
[2020-07-30 03:07] LABS: BASOPHILS # (AUTO) 0.1 X10'3 (0-0.2); BASOPHILS % (AUTO) 0.6 % (0-1); EOSINOPHILS # (AUTO) 0.1 X10'3 (0-0.9); EOSINOPHILS % (AUTO) 1.6 % (0-6); HEMATOCRIT 24.4 % (35.0-45.0); HEMOGLOBIN 8.2 g/dl (12.0-16.0); LYMPHOCYTES # (AUTO) 0.9 X10'3 (1.1-4.8); LYMPHOCYTES % (AUTO) 9.9 % (21-51); MEAN CORPUSCULAR HEMOGLOBIN 28.2 PG (27.0-31.0); MEAN CORPUSCULAR HGB CONC 33.8 g/dL (33.0-36.5); MEAN CORPUSCULAR VOLUME 83.3 FL (78-98); MEAN PLATELET VOLUME 6.2 FL (7.4-10.4); MONOCYTES # (AUTO) 0.7 X10'3 (0-0.9); MONOCYTES % (AUTO) 7.8 % (2-12); NEUTROPHILS % (AUTO) 80.1 % (42-75); PLATELET COUNT 288 X10'3 (140-440); RED BLOOD COUNT 2.93 X10'6 (4.20-5.60); RED CELL DISTRIBUTION WIDTH 15.2 % (11.5-14.5); WHITE BLOOD COUNT 8.8 X10'3 (4.5-11.0)
[2020-07-30 03:17] LABS: ALANINE AMINOTRANSFERASE 21 U/L (12-78); ALBUMIN 1.9 G/DL (3.4-5.0); ALBUMIN/GLOBULIN RATIO 0.5 (1.1-1.5); ALKALINE PHOSPHATASE 90 IU/L (46-116); ANION GAP 10 (8-16); ASPARTATE AMINO TRANSFERASE 17 U/L (10-37); BILIRUBIN,TOTAL 0.2 MG/DL (0.1-1.0); BLOOD UREA NITROGEN 27 MG/DL (7-18); BUN/CREATININE RATIO 16.3 (6.6-38.0); CALCIUM 7.6 MG/DL (8.5-10.1); CHLORIDE 104 MMOL/L (99-107); CREATININE 1.66 MG/DL (0.40-0.90); GLUCOSE 86 MG/DL (70-104); MAGNESIUM 1.4 MG/DL (1.5-2.4); POTASSIUM 4.4 MMOL/L (3.5-5.1); SODIUM 134 MMOL/L (135-145); TOTAL CARBON DIOXIDE 20.5 MMOL/L (24-32); TOTAL PROTEIN 5.9 G/DL (6.4-8.2); eGFR 30 ML/MIN
[2020-07-30] MEDS ORDERED: magnesium 2GM in 50ml NS 50 ML IV ONE (04:40)
[2020-07-30] MEDS: normal saline 1000ml 1,000 ML IV SCH (04:55)
[2020-07-30] MEDS: nystatin 500,000 unit/5ML UD oral suspension PO SCH ×4 (04:55→20:11)
--- NOTE | 2020-07-30 06:07 | NUR ---
0537: Dr. Vazquez updated. Orders received. 0607:Problems reprioritized. Patient report given, questions answered & plan of care reviewed with Suzi RN.
[2020-07-30] MEDS: enoxaparin 30mg/0.3ml syringe SQ SCH ×2 (07:30→20:10)
[2020-07-30] MEDS: potassium chloride 10mEq ER tablet PO SCH (07:30)
[2020-07-30] MEDS: aspirin 325mg tablet PO SCH (07:31)
[2020-07-30] MEDS: metoprolol tartrate 50mg tablet PO SCH ×2 (07:31→20:04)
[2020-07-30] MEDS: pantoprazole 40mg Tablet.DR PO SCH (07:31)
[2020-07-30] MEDS: multivitamins, therapeutics tablet PO SCH (07:31)
[2020-07-30] MEDS: lactobacillus rhamnosus 10,000 MMU CELLS/CAPSULE PO SCH ×2 (07:31→20:04)
[2020-07-30] MEDS: levoTHYROXINE 100mcg tablet PO SCH (07:31)
[2020-07-30] MEDS: amLODIPine 5mg tablet PO SCH (07:32)
[2020-07-30] MEDS: atorvastatin 20mg tablet PO SCH (07:32)
[2020-07-30] MEDS: mineral oil/petrolatum, white cream 113gm jar TP SCH ×2 (07:33→20:12)
[2020-07-30] MEDS: JUVEN Smoothie Arginine/Glut./Ca2+Bmb (Juven 19.3pkt) 240ml cup PO SCH ×2 (07:48→12:30)
[2020-07-30] MEDS: HYDROcodone/acetaminophen 5mg/325mg tablet PO PRN (13:57)
--- NOTE | 2020-07-30 18:18 | NUR ---
Problems reprioritized. Patient report given, questions answered & plan of care reviewed with Danilo.
[2020-07-30] MEDS: docusate sod 100mg capsule PO PRN (20:04)
[2020-07-30] MEDS: gabapentin 300mg capsule PO SCH (20:05)
[2020-07-30] MEDS: HYDROcodone/acetaminophen 10/325mg tab PO PRN (20:05)
[2020-07-30] MEDS: nortriptyline 25mg capsule PO SCH (20:10)
[2020-07-30] MEDS: docusate sod 250mg capsule PO SCH (20:12)
[2020-07-30] MEDS: insulin glargine (Lantus) pen - multi-dose SQ SCH (21:00)
[2020-07-31] VITALS (16 sets, daily range): BP systolic 130–165; BP diastolic 50–82
[2020-07-31] MEDS: clindamycin 600mg/D5W 50ml 50 ML IV SCH ×3 (00:36→16:42)
[2020-07-31] MEDS: HYDROcodone/acetaminophen 10/325mg tab PO PRN ×4 (01:07→21:33)
[2020-07-31] MEDS: nystatin 500,000 unit/5ML UD oral suspension PO SCH ×4 (01:08→21:33)
[2020-07-31 06:05] LABS: BASOPHILS # (AUTO) 0.1 X10'3 (0-0.2); EOSINOPHILS # (AUTO) 0.2 X10'3 (0-0.9); EOSINOPHILS % (AUTO) 2.9 % (0-6); HEMATOCRIT 24.2 % (35.0-45.0); HEMOGLOBIN 7.9 g/dl (12.0-16.0); LYMPHOCYTES # (AUTO) 1.3 X10'3 (1.1-4.8); LYMPHOCYTES % (AUTO) 15.7 % (21-51); MEAN CORPUSCULAR HEMOGLOBIN 27.5 PG (27.0-31.0); MEAN CORPUSCULAR HGB CONC 32.9 g/dL (33.0-36.5); MEAN CORPUSCULAR VOLUME 83.7 FL (78-98); MEAN PLATELET VOLUME 6.7 FL (7.4-10.4); MONOCYTES # (AUTO) 0.8 X10'3 (0-0.9); MONOCYTES % (AUTO) 9.5 % (2-12); NEUTROPHILS # (AUTO) 5.9 X10'3 (1.8-7.7); NEUTROPHILS % (AUTO) 70.9 % (42-75); PLATELET COUNT 284 X10'3 (140-440); RED BLOOD COUNT 2.89 X10'6 (4.20-5.60); RED CELL DISTRIBUTION WIDTH 15.1 % (11.5-14.5); WHITE BLOOD COUNT 8.3 X10'3 (4.5-11.0)
[2020-07-31 06:14] LABS: ALANINE AMINOTRANSFERASE 19 U/L (12-78); ALBUMIN 1.9 G/DL (3.4-5.0); ALBUMIN/GLOBULIN RATIO 0.4 (1.1-1.5); ALKALINE PHOSPHATASE 96 IU/L (46-116); ANION GAP 10 (8-16); ASPARTATE AMINO TRANSFERASE 20 U/L (10-37); BILIRUBIN,TOTAL 0.2 MG/DL (0.1-1.0); BLOOD UREA NITROGEN 28 MG/DL (7-18); BUN/CREATININE RATIO 15.6 (6.6-38.0); CHLORIDE 104 MMOL/L (99-107); CREATININE 1.79 MG/DL (0.40-0.90); GLUCOSE 83 MG/DL (70-104); MAGNESIUM 1.8 MG/DL (1.5-2.4); POTASSIUM 4.8 MMOL/L (3.5-5.1); SODIUM 135 MMOL/L (135-145); TOTAL PROTEIN 6.3 G/DL (6.4-8.2); eGFR 28 ML/MIN
[2020-07-31] MEDS: JUVEN Smoothie Arginine/Glut./Ca2+Bmb (Juven 19.3pkt) 240ml cup PO SCH ×4 (07:44→17:53)
[2020-07-31] MEDS: multivitamins, therapeutics tablet PO SCH (08:00)
[2020-07-31] MEDS: lactobacillus rhamnosus 10,000 MMU CELLS/CAPSULE PO SCH ×2 (08:59→21:31)
[2020-07-31] MEDS: levoFLOXACIN 750MG TABLET PO SCH (08:59)
[2020-07-31] MEDS: levoTHYROXINE 100mcg tablet PO SCH (09:00)
[2020-07-31] MEDS: atorvastatin 20mg tablet PO SCH (09:00)
[2020-07-31] MEDS: amLODIPine 5mg tablet PO SCH (09:00)
[2020-07-31] MEDS: metoprolol tartrate 50mg tablet PO SCH ×2 (09:01→21:32)
[2020-07-31] MEDS: pantoprazole 40mg Tablet.DR PO SCH (09:02)
[2020-07-31] MEDS: potassium chloride 10mEq ER tablet PO SCH (09:02)
[2020-07-31] MEDS: aspirin 325mg tablet PO SCH (09:02)
[2020-07-31] MEDS: enoxaparin 30mg/0.3ml syringe SQ SCH ×2 (09:03→21:33)
[2020-07-31] MEDS: mineral oil/petrolatum, white cream 113gm jar TP SCH ×2 (09:04→21:38)
--- NOTE | 2020-07-31 09:30 | NUR ---
F/u 07/31: Pt s/p L femoral thromboendarterectomy per EMR. PO fluctuates ~75% avg carb controlled/SB6 diet and ~50-75% avg Stanislav smoothie BIDBL meeting minimum needs. LBM 07/30. No nutrition concerns at this time. Will continue to monitor. Rec: 1. Continue CHO controlled diet 2. [place] Stanislav smoothie BIDBL for wound healing needs 3. Continue MVI for wound healing 4. Routine bowel care 5. weekly wts Addendum: 07/31/20 at [address] Amended: Links added.
--- NOTE | 2020-07-31 14:55 | NUR ---
Reported transfer information to Domi BECERRA wound photos taken pt tx to 352 via pt bed. Pt denie all c/o at this time
--- NOTE | 2020-07-31 15:15 | NUR ---
Pt states dull pain to left lower abdomen unchanged with palpation. Dr Young was informed,no new orders.
[2020-07-31] MEDS: normal saline 1000ml 1,000 ML IV SCH (16:42)
--- NOTE | 2020-07-31 16:45 | NUR ---
Pt brought from ICU by HERNAN Berry. Pt alert, oriented.
--- NOTE | 2020-07-31 18:30 | NUR ---
Patient in room BLANK 352. I have received report from DEIDRE and had the opportunity to ask questions and assume patient care.
--- NOTE | 2020-07-31 18:35 | NUR ---
Pt report given to Catia BECERRA. All questions answered. Pt watching tv in bed, appears comfortable
[2020-07-31] MEDS: insulin glargine (Lantus) pen - multi-dose SQ SCH (21:00)
[2020-07-31] MEDS: gabapentin 300mg capsule PO SCH (21:31)
[2020-07-31] MEDS: nortriptyline 25mg capsule PO SCH (21:32)
[2020-07-31] MEDS: docusate sodium 100mg/10ml UD cup PO SCH (21:49)
[2020-08-01] MEDS: clindamycin 600mg/D5W 50ml 50 ML IV SCH ×3 (00:11→17:05)
[2020-08-01] MEDS: nystatin 500,000 unit/5ML UD oral suspension PO SCH ×4 (02:00→20:43)
[2020-08-01 06:22] LABS: BASOPHILS # (AUTO) 0.1 X10'3 (0-0.2); BASOPHILS % (AUTO) 0.9 % (0-1); EOSINOPHILS # (AUTO) 0.3 X10'3 (0-0.9); EOSINOPHILS % (AUTO) 3.6 % (0-6); HEMATOCRIT 24.1 % (35.0-45.0); LYMPHOCYTES # (AUTO) 1.1 X10'3 (1.1-4.8); LYMPHOCYTES % (AUTO) 15.8 % (21-51); MEAN CORPUSCULAR HEMOGLOBIN 27.9 PG (27.0-31.0); MEAN CORPUSCULAR HGB CONC 33.1 g/dL (33.0-36.5); MEAN CORPUSCULAR VOLUME 84.3 FL (78-98); MEAN PLATELET VOLUME 6.6 FL (7.4-10.4); MONOCYTES # (AUTO) 0.7 X10'3 (0-0.9); NEUTROPHILS % (AUTO) 69.7 % (42-75); PLATELET COUNT 277 X10'3 (140-440); RED BLOOD COUNT 2.86 X10'6 (4.20-5.60); RED CELL DISTRIBUTION WIDTH 15.1 % (11.5-14.5); WHITE BLOOD COUNT 7.2 X10'3 (4.5-11.0)
[2020-08-01 06:27] LABS: ALANINE AMINOTRANSFERASE 14 U/L (12-78); ALBUMIN 1.8 G/DL (3.4-5.0); ALBUMIN/GLOBULIN RATIO 0.4 (1.1-1.5); ALKALINE PHOSPHATASE 85 IU/L (46-116); ANION GAP 9 (8-16); ASPARTATE AMINO TRANSFERASE 14 U/L (10-37); BILIRUBIN,TOTAL 0.2 MG/DL (0.1-1.0); BLOOD UREA NITROGEN 40 MG/DL (7-18); BUN/CREATININE RATIO 20.9 (6.6-38.0); CALCIUM 8.3 MG/DL (8.5-10.1); CHLORIDE 102 MMOL/L (99-107); CREATININE 1.91 MG/DL (0.40-0.90); GLUCOSE 103 MG/DL (70-104); MAGNESIUM 1.9 MG/DL (1.5-2.4); SODIUM 132 MMOL/L (135-145); TOTAL CARBON DIOXIDE 21.5 MMOL/L (24-32); eGFR 26 ML/MIN
--- NOTE | 2020-08-01 06:29 | NUR ---
Problems reprioritized. Patient report given, questions answered & plan of care reviewed with JACKY.
--- NOTE | 2020-08-01 06:43 | NUR ---
Patient in room BLANK 352. I have received report from LEENA BECERRA and had the opportunity to ask questions and assume patient care.
--- NOTE | 2020-08-01 06:49 | NUR ---
Patient in room BLANK 352. I have received report from Vicente Morse and had the opportunity to ask questions and assume patient care.
[2020-08-01 08:00] VITALS: BP 145/73
[2020-08-01] MEDS: aspirin 325mg tablet PO SCH (08:23)
[2020-08-01] MEDS: lactobacillus rhamnosus 10,000 MMU CELLS/CAPSULE PO SCH ×2 (08:23→20:42)
[2020-08-01] MEDS: amLODIPine 5mg tablet PO SCH (08:26)
[2020-08-01] MEDS: atorvastatin 20mg tablet PO SCH (08:28)
[2020-08-01] MEDS: multivitamins, therapeutics tablet PO SCH (08:29)
[2020-08-01] MEDS: levoTHYROXINE 100mcg tablet PO SCH (08:30)
[2020-08-01] MEDS: pantoprazole 40mg Tablet.DR PO SCH (08:31)
[2020-08-01] MEDS: metoprolol tartrate 50mg tablet PO SCH ×2 (08:33→20:42)
[2020-08-01] MEDS: potassium chloride 10mEq ER tablet PO SCH (08:34)
[2020-08-01] MEDS: enoxaparin 30mg/0.3ml syringe SQ SCH (08:35)
[2020-08-01] MEDS: mineral oil/petrolatum, white cream 113gm jar TP SCH ×2 (08:36→20:44)
[2020-08-01] MEDS: morphine 2 MG/ML inj. syringe IV PRN (09:57)
[2020-08-01 11:00] VITALS: BP 149/70
--- NOTE | 2020-08-01 12:15 | NUR ---
Problems reprioritized. Patient report given, questions answered & plan of care reviewed with Vicente Morse
--- NOTE | 2020-08-01 12:16 | NUR ---
Student documentation: I have reviewed and agree with all interventions, assessments performed and documented by Mary, nursing secretary.
--- NOTE | 2020-08-01 12:16 | NUR ---
Student Medication Administration: For this medication-pass time frame, all medication were reviewed, dispensed, administered and documented per hospital policy by leslye Hernandez.
--- NOTE | 2020-08-01 16:51 | NUR ---
Call placed to Dr Anderson re: continuous slow bleed fr/ Lt groin with wnd. vac. No answer. Left message, then called Dr Rivera who is in the OR and unable to talk right now. Gave information to circulating RN and asked that she have either him or Justin call me when able. Will have Vicente RN turn off vac for now since wound vac is over endarterectomy site.
--- NOTE | 2020-08-01 17:00 | NUR ---
Patient wound vac still bleeding, charge nurse verify with surgeon of patient condition. Patient wound vac placed on hold at this time.
[2020-08-01] MEDS: HYDROcodone/acetaminophen 10/325mg tab PO PRN (18:26)
--- NOTE | 2020-08-01 18:30 | NUR ---
PT HAS ORDERS TO REMOVE WOUND VAC AND PLACE MOIST TO MOIST DRESSING OVER GROIN SITE. GROIN SITE FOUND TO HAVE LARGE AMOUNT OF CLOTTED BLOOD, GOWN AND DRY FLOW UNDER THE PT ALSO FOUND TO BE SATURATED TO KELIN RED BLOOD. WOUND VAC REMOVED PER MD ORDER, BLOOD CONTINUOUSLY POOLING AT GROIN SITE. DR SPICER IN TO SEE BLEEDING WOUND, STATES THE BLEED IS "SUPERFICIAL." ASKED FOR SURGICIL DRESSING TO PLACED UNDER THE MOIST GAUZE. SURGICIL OBTAINED FROM [facility]. SURGICIL GAUZE PLACED, GAUZE SATURATED WITH NS, COVERED WITH ABD PADS AND SECURED WITH FOAM TAPE. DRESSING IS A PRESSURE DRESSING. PT TOLERATED WELL. WILL CONTINUE TO MONITOR.
--- NOTE | 2020-08-01 18:30 | NUR ---
Patient in room BLANK 352. I have received report from JACKY and had the opportunity to ask questions and assume patient care.
--- NOTE | 2020-08-01 18:45 | NUR ---
Problems reprioritized. Patient report given, questions answered & plan of care reviewed with Catia BECERRA.
[2020-08-01 20:00] VITALS: BP 148/67
[2020-08-01] MEDS: normal saline 1000ml 1,000 ML IV SCH (20:15)
[2020-08-01] MEDS: nortriptyline 25mg capsule PO SCH (20:42)
[2020-08-01] MEDS: gabapentin 300mg capsule PO SCH (20:42)
[2020-08-01] MEDS: docusate sodium 100mg/10ml UD cup PO SCH (20:44)
[2020-08-01] MEDS: insulin glargine (Lantus) pen - multi-dose SQ SCH (20:44)
[2020-08-01 23:19] VITALS: BP 161/76
[2020-08-02] MEDS: clindamycin 600mg/D5W 50ml 50 ML IV SCH ×4 (00:03→23:41)
[2020-08-02] MEDS: nystatin 500,000 unit/5ML UD oral suspension PO SCH ×4 (02:00→20:52)
--- NOTE | 2020-08-02 06:00 | NUR ---
Problems reprioritized. Patient report given, questions answered & plan of care reviewed with JACKY.
[2020-08-02 06:43] LABS: BASOPHILS % (AUTO) 0.6 % (0-1); EOSINOPHILS # (AUTO) 0.2 X10'3 (0-0.9); EOSINOPHILS % (AUTO) 3.8 % (0-6); HEMATOCRIT 23.5 % (35.0-45.0); HEMOGLOBIN 7.9 g/dl (12.0-16.0); LYMPHOCYTES # (AUTO) 0.9 X10'3 (1.1-4.8); LYMPHOCYTES % (AUTO) 14.6 % (21-51); MEAN CORPUSCULAR HEMOGLOBIN 28.2 PG (27.0-31.0); MEAN CORPUSCULAR HGB CONC 33.7 g/dL (33.0-36.5); MEAN CORPUSCULAR VOLUME 83.8 FL (78-98); MEAN PLATELET VOLUME 6.6 FL (7.4-10.4); MONOCYTES # (AUTO) 0.5 X10'3 (0-0.9); MONOCYTES % (AUTO) 8.3 % (2-12); NEUTROPHILS # (AUTO) 4.6 X10'3 (1.8-7.7); NEUTROPHILS % (AUTO) 72.7 % (42-75); PLATELET COUNT 251 X10'3 (140-440); RED BLOOD COUNT 2.81 X10'6 (4.20-5.60); RED CELL DISTRIBUTION WIDTH 14.7 % (11.5-14.5); WHITE BLOOD COUNT 6.4 X10'3 (4.5-11.0)
--- NOTE | 2020-08-02 06:51 | NUR ---
Patient in room BLANK 352. I have received report from LEENA BECERRA and had the opportunity to ask questions and assume patient care.
[2020-08-02 07:06] LABS: ALANINE AMINOTRANSFERASE 14 U/L (12-78); ALBUMIN 1.7 G/DL (3.4-5.0); ALBUMIN/GLOBULIN RATIO 0.4 (1.1-1.5); ALKALINE PHOSPHATASE 79 IU/L (46-116); ANION GAP 9 (8-16); ASPARTATE AMINO TRANSFERASE 13 U/L (10-37); BILIRUBIN,TOTAL 0.2 MG/DL (0.1-1.0); BLOOD UREA NITROGEN 45 MG/DL (7-18); BUN/CREATININE RATIO 21.8 (6.6-38.0); CALCIUM 8.1 MG/DL (8.5-10.1); CHLORIDE 104 MMOL/L (99-107); CREATININE 2.06 MG/DL (0.40-0.90); GLUCOSE 103 MG/DL (70-104); MAGNESIUM 1.7 MG/DL (1.5-2.4); POTASSIUM 5.1 MMOL/L (3.5-5.1); SODIUM 134 MMOL/L (135-145); TOTAL CARBON DIOXIDE 20.6 MMOL/L (24-32); TOTAL PROTEIN 5.7 G/DL (6.4-8.2); eGFR 24 ML/MIN
[2020-08-02] MEDS: JUVEN Smoothie Arginine/Glut./Ca2+Bmb (Juven 19.3pkt) 240ml cup PO SCH ×2 (07:30→13:19)
[2020-08-02 08:19] VITALS: BP 147/60
[2020-08-02] MEDS: multivitamins, therapeutics tablet PO SCH (09:17)
[2020-08-02] MEDS: levoFLOXACIN 750MG TABLET PO SCH (09:17)
[2020-08-02] MEDS: atorvastatin 20mg tablet PO SCH (09:18)
[2020-08-02] MEDS: pantoprazole 40mg Tablet.DR PO SCH (09:18)
[2020-08-02] MEDS: metoprolol tartrate 50mg tablet PO SCH ×2 (09:18→20:52)
[2020-08-02] MEDS: potassium chloride 10mEq ER tablet PO SCH (09:19)
[2020-08-02] MEDS: aspirin 325mg tablet PO SCH (09:19)
[2020-08-02] MEDS: amLODIPine 5mg tablet PO SCH (09:20)
[2020-08-02] MEDS: levoTHYROXINE 100mcg tablet PO SCH (09:20)
[2020-08-02] MEDS: lactobacillus rhamnosus 10,000 MMU CELLS/CAPSULE PO SCH ×2 (09:21→20:52)
[2020-08-02] MEDS: mineral oil/petrolatum, white cream 113gm jar TP SCH ×2 (09:50→20:56)
[2020-08-02] MEDS: HYDROcodone/acetaminophen 10/325mg tab PO PRN (15:52)
--- NOTE | 2020-08-02 18:15 | NUR ---
Patient in room BLANK 345. I have received report from HERNAN Zhang and had the opportunity to ask questions and assume patient care.
--- NOTE | 2020-08-02 18:30 | NUR ---
Problems reprioritized. Patient report given, questions answered & plan of care reviewed with Gabbi Holman RN.
[2020-08-02 19:57] VITALS: BP 142/68
[2020-08-02] MEDS: gabapentin 300mg capsule PO SCH (20:52)
[2020-08-02] MEDS: nortriptyline 25mg capsule PO SCH (20:52)
[2020-08-02] MEDS: enoxaparin 30mg/0.3ml syringe SQ SCH (20:53)
[2020-08-02] MEDS: docusate sodium 100mg/10ml UD cup PO SCH (20:53)
[2020-08-02] MEDS: insulin glargine (Lantus) pen - multi-dose SQ SCH (21:00)
[2020-08-02] MEDS: ondansetron/PF 4mg/2ml inj IV PRN (21:20)
[2020-08-03] VITALS: BP 139/71
[2020-08-03] MEDS: nystatin 500,000 unit/5ML UD oral suspension PO SCH ×4 (02:33→19:16)
[2020-08-03] MEDS: normal saline 1000ml 1,000 ML IV SCH (02:38)
--- NOTE | 2020-08-03 06:06 | NUR ---
Problems reprioritized. Patient report given, questions answered & plan of care reviewed with HERNAN Zhang.
[2020-08-03 06:47] LABS: BASOPHILS # (AUTO) 0.1 X10'3 (0-0.2); BASOPHILS % (AUTO) 1.5 % (0-1); EOSINOPHILS # (AUTO) 0.2 X10'3 (0-0.9); HEMOGLOBIN 7.5 g/dl (12.0-16.0); LYMPHOCYTES % (AUTO) 17.3 % (21-51); MEAN CORPUSCULAR HEMOGLOBIN 28.8 PG (27.0-31.0); MEAN CORPUSCULAR HGB CONC 34.5 g/dL (33.0-36.5); MEAN CORPUSCULAR VOLUME 83.6 FL (78-98); MEAN PLATELET VOLUME 6.4 FL (7.4-10.4); MONOCYTES # (AUTO) 0.7 X10'3 (0-0.9); MONOCYTES % (AUTO) 11.8 % (2-12); NEUTROPHILS # (AUTO) 3.9 X10'3 (1.8-7.7); NEUTROPHILS % (AUTO) 65.4 % (42-75); PLATELET COUNT 274 X10'3 (140-440); RED BLOOD COUNT 2.62 X10'6 (4.20-5.60); RED CELL DISTRIBUTION WIDTH 15.2 % (11.5-14.5)
[2020-08-03 06:49] LABS: ALANINE AMINOTRANSFERASE 15 U/L (12-78); ALBUMIN 1.8 G/DL (3.4-5.0); ALBUMIN/GLOBULIN RATIO 0.4 (1.1-1.5); ALKALINE PHOSPHATASE 80 IU/L (46-116); ANION GAP 6 (8-16); ASPARTATE AMINO TRANSFERASE 13 U/L (10-37); BILIRUBIN,TOTAL 0.2 MG/DL (0.1-1.0); BLOOD UREA NITROGEN 47 MG/DL (7-18); BUN/CREATININE RATIO 23.3 (6.6-38.0); CALCIUM 8.1 MG/DL (8.5-10.1); CHLORIDE 101 MMOL/L (99-107); CREATININE 2.02 MG/DL (0.40-0.90); GLUCOSE 81 MG/DL (70-104); MAGNESIUM 1.9 MG/DL (1.5-2.4); POTASSIUM 4.9 MMOL/L (3.5-5.1); SODIUM 130 MMOL/L (135-145); TOTAL CARBON DIOXIDE 22.8 MMOL/L (24-32); TOTAL PROTEIN 5.9 G/DL (6.4-8.2); eGFR 24 ML/MIN
--- NOTE | 2020-08-03 06:51 | NUR ---
Patient in room BLANK 345. I have received report from Gabbi Holman RN and had the opportunity to ask questions and assume patient care.
[2020-08-03 07:02] LABS: HEMATOCRIT 21.9 % (35.0-45.0)
[2020-08-03] MEDS: JUVEN Smoothie Arginine/Glut./Ca2+Bmb (Juven 19.3pkt) 240ml cup PO SCH ×2 (07:30→12:47)
[2020-08-03 08:00] VITALS: BP 130/61
[2020-08-03] MEDS: aspirin 325mg tablet PO SCH (09:09)
[2020-08-03] MEDS: multivitamins, therapeutics tablet PO SCH (09:09)
[2020-08-03] MEDS: pantoprazole 40mg Tablet.DR PO SCH (09:09)
[2020-08-03] MEDS: lactobacillus rhamnosus 10,000 MMU CELLS/CAPSULE PO SCH ×2 (09:09→19:17)
[2020-08-03] MEDS: levoTHYROXINE 100mcg tablet PO SCH (09:11)
[2020-08-03] MEDS: metoprolol tartrate 50mg tablet PO SCH ×2 (09:11→19:17)
[2020-08-03] MEDS: amLODIPine 5mg tablet PO SCH (09:12)
[2020-08-03] MEDS: clindamycin 600mg/D5W 50ml 50 ML IV SCH ×2 (09:13→16:00)
[2020-08-03] MEDS: atorvastatin 20mg tablet PO SCH (09:13)
[2020-08-03] MEDS: potassium chloride 10mEq ER tablet PO SCH (09:13)
[2020-08-03] MEDS: mineral oil/petrolatum, white cream 113gm jar TP SCH (09:15)
[2020-08-03] MEDS: enoxaparin 30mg/0.3ml syringe SQ SCH ×2 (10:06→19:16)
--- NOTE | 2020-08-03 18:41 | NUR ---
Problems reprioritized. Patient report given, questions answered & plan of care reviewed with EMANUEL VARGAS RN.
--- NOTE | 2020-08-03 18:46 | NUR ---
PATIENT TRANSPORT WAS NEVER FINALIZED ACCORDING TO [facility], THEY HAVE A NEW TIME FOR 0715 08/04 AND TENTATIVELY SET. [facility] AT [facility] IS ALSO LOOKING INTO [facility] TRANSPORT TONIGHT, BECAUSE IF TRANSPORT DOES NOT HAPPEN THEN TRANSFER FALLS THROUGH AND HAS TO BE STARTED ALL OVER IN THE AM. [facility] WILL INFORM US ON TRANSPORT STATUS TONIGHT, AND ONE WAY OR THE OTHER WE WILL KNOW TO CONFIRM OR CANCEL WITH ZAKI ELLIOTT.
[2020-08-03 19:00] VITALS: BP 156/70
[2020-08-03 19:17] VITALS: BP_SYST 156
[2020-08-03] MEDS: HYDROcodone/acetaminophen 10/325mg tab PO PRN (19:17)
--- NOTE | 2020-08-03 19:35 | NUR ---
[facility] arrived for patient.
--- NOTE | 2020-08-03 19:53 | NUR ---
Patient transfered to [facility] via [facility]. All belongings sent with patient. IV and Cordero Catheter left intact for [facility]. Addendum: 08/03/20 at 2108 by Rhea Whitmore RN Report had been previously called to Sunita at [facility] [phone].
== END 2020-08-03 19:50 | DRG 628 ==
LOC: ER 10:19 → ED HOLD 17:00 → ORTHO 4S 23:04 → CICU 2S 07-25 17:37 → SUR 3N 07-28 17:29 → ICU 2S 07-29 12:04 → SUR 3N 07-31 16:14
PROVIDERS: ADMIT Family Medicine; ATTEND Family Medicine
PROC: 3E0234Z Introduction of Serum, Toxoid and Vaccine into Muscle, Percutaneous Approach (ICD-10-PCS; 2020-07-22)
PROC: 3E02340 Introduction of Influenza Vaccine into Muscle, Percutaneous Approach (ICD-10-PCS; 2020-07-22)
PROC: B41F1ZZ Fluoroscopy of Right Lower Extremity Arteries using Low Osmolar Contrast (ICD-10-PCS; 2020-07-25)
PROC: B4101ZZ Fluoroscopy of Abdominal Aorta using Low Osmolar Contrast (ICD-10-PCS; 2020-07-25)
PROC: B41G1ZZ Fluoroscopy of Left Lower Extremity Arteries using Low Osmolar Contrast (ICD-10-PCS; 2020-07-25)
PROC: 30233N1 Transfusion of Nonautologous Red Blood Cells into Peripheral Vein, Percutaneous Approach (ICD-10-PCS; 2020-07-27)
PROC: 4A02XM4 Measurement of Cardiac Total Activity, External Approach (ICD-10-PCS; 2020-07-27)
PROC: 3E073KZ Introduction of Other Diagnostic Substance into Coronary Artery, Percutaneous Approach (ICD-10-PCS; 2020-07-27)
PROC: 04CL0ZZ Extirpation of Matter from Left Femoral Artery, Open Approach (ICD-10-PCS; principal; 2020-07-29 08:22)
DX: E11.69 Type 2 diabetes mellitus with other specified complication (principal); J96.00 Acute respiratory failure, unspecified whether with hypoxia or hypercapnia; M86.172 Other acute osteomyelitis, left ankle and foot; L03.116 Cellulitis of left lower limb; L03.115 Cellulitis of right lower limb; I69.354 Hemiplegia and hemiparesis following cerebral infarction affecting left non-dominant side; L97.419 Non-pressure chronic ulcer of right heel and midfoot with unspecified severity; E11.51 Type 2 diabetes mellitus with diabetic peripheral angiopathy without gangrene; N17.9 Acute kidney failure, unspecified; J45.909 Unspecified asthma, uncomplicated; I25.10 Atherosclerotic heart disease of native coronary artery without angina pectoris; L97.529 Non-pressure chronic ulcer of other part of left foot with unspecified severity; E11.22 Type 2 diabetes mellitus with diabetic chronic kidney disease; E11.621 Type 2 diabetes mellitus with foot ulcer; B95.62 Methicillin resistant Staphylococcus aureus infection as the cause of diseases classified elsewhere; Z20.822 Contact with and (suspected) exposure to COVID-19; E11.65 Type 2 diabetes mellitus with hyperglycemia; B96.20 Unspecified Escherichia coli [E. coli] as the cause of diseases classified elsewhere; E78.5 Hyperlipidemia, unspecified; I12.9 Hypertensive chronic kidney disease with stage 1 through stage 4 chronic kidney disease, or unspecified chronic kidney disease; N18.30 Chronic kidney disease, stage 3 unspecified; D63.1 Anemia in chronic kidney disease; E78.00 Pure hypercholesterolemia, unspecified; Z91.19 Patient's noncompliance with other medical treatment and regimen; Z90.710 Acquired absence of both cervix and uterus; Z23 Encounter for immunization; Z85.850 Personal history of malignant neoplasm of thyroid; Z95.1 Presence of aortocoronary bypass graft
CPT/HCPCS: 36160; 36246; 36415; 36430; 36600; 70450; 71045; 73590; 73630; 74176; 75710; 76937; 78452; 80048; 80053; 82803; 82948; 83036; 83605; 83735; 84145; 84443; 85018; 85025; 85610; 85651; 85730; 86140; 86885; 86900; 86901; 86920; 87040; 87070; 87075; 87077; 87081; 87186; 87635; 90732; 93005; 93017; 93306; 93308; 93925; 94799; 99152; 99153; 99285; A4618; A6258; A6550; A7000; A9500; C1757; C1758; C1769; C1894; G0378; J0692; J0696; J0744; J1170; J1644; J1650; J1815; J1956; J2001; J2250; J2270; J2310; J2405; J2785; J3010; J3475; J3490; J7030; J7040; J7120; P9016; Q2039; Q9967